=== PATIENT | male | born 1930 | race Caucasian/White ===

== ENCOUNTER → 2017-11-13 | Outpatient (CLI) | payer MEDICARE | END | disposition home or self-care (01) | LOC: CT 14:17 | DX: J18.1 Lobar pneumonia, unspecified organism (principal); I25.10 Atherosclerotic heart disease of native coronary artery without angina pectoris; M40.294 Other kyphosis, thoracic region | CPT/HCPCS: 71250 ==

== ENCOUNTER → 2018-02-08 | Outpatient (CLI) | payer MEDICARE ==
[2017-11-30 11:00] VITALS: BP 100/58
[~2018-02-08] MED LIST: AMOX1TAB10 PO; FLUT1DIS5 IH; FURO20TA3 PO; GUAI600T47 PO; IPRA3AMP29 NEB; LACT1CAP19 PO; MEMA10TA PO; POTA10TA12 PO; RIVA15TA PO
--- NOTE | 2018-02-08 15:19 | RAD ---
CT of the chest without contrast, 02/08/2018: HISTORY: Lung nodules Noncontrast scans were obtained and compared to a study from 11/13/2017. Comparison is made to a study from 11/13/2017. There is a 5 x 6 mm noncalcified nodule in the posterior lateral aspect of the right lower lobe as best seen on axial image 177 of series #3. It has shown no definite interval change in size. Much of the left upper lobe infiltrate has cleared since the previous study. There is a mild residual elongated parenchymal opacity along the anterosuperior aspect of the left hilum in the left upper lobe. This may represent scarring or residual atelectasis. There are mild residual tree-in-bud opacities. Emphysematous changes are present in the lungs. There are scattered linear opacities in both lungs compatible with scarring. A few scattered tree-in-bud type opacities in both lungs persist. There is a new elongated parenchymal opacity posterior medially in the left lower lobe as best seen on image 217 of series #3. This may represent atelectasis. There is mild bronchial wall thickening and evidence of debris in several bronchi in the left lower lobe. There is a trace amount of pleural thickening and possible pleural fluid in the posterior costophrenic angle on the left. There is moderate calcific plaquing of the thoracic aorta. Extensive coronary artery calcifications are present. Multiple small mediastinal lymph nodes are seen. Some of these have increased slightly in size, although they are not considered to be of pathologic size. 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 There are moderate multilevel degenerative changes. There is anterior fusion of several lower thoracic vertebral bodies. These findings appear unchanged. IMPRESSION: 1. Emphysema with pleural/parenchymal scarring. 2. Partial clearing of the left upper lobe pneumonitis since 11/13/2017. 3. New mild elongated left basilar pulmonary opacity suggesting atelectasis and/or pneumonitis. 4. Unchanged tiny right lower lobe pulmonary nodule. 5. Extensive coronary artery disease. Electronically signed by: Ahmet Head MD (02/08/2018 3:16 PM) [facility]
== END | disposition home or self-care (01) ==
LOC: CT 10:10
PROVIDERS: ATTEND Internal Medicine Pulmonary Disease
DX: J43.9 Emphysema, unspecified (principal); I25.10 Atherosclerotic heart disease of native coronary artery without angina pectoris; E03.9 Hypothyroidism, unspecified; I48.0 Paroxysmal atrial fibrillation; R91.1 Solitary pulmonary nodule; Z87.01 Personal history of pneumonia (recurrent); Z87.891 Personal history of nicotine dependence; Z68.26 Body mass index [BMI] 26.0-26.9, adult
CPT/HCPCS: 71250

== ENCOUNTER 2018-06-22 17:22 | Inpatient (IN) | payer MEDICARE ==
[2018-06-21 23:00] VITALS: BP 112/55
[~2018-06-22] VITALS: Ht 162.6 cm; Wt 75.8 kg
[~2018-06-22 17:22] MED LIST changes: +DILT120C85 PO; +FURO-69 PO; +POTA20TA82 PO
[2018-06-22] MEDS ORDERED: IV NORMAL SALINE 1000ML BAG 1,000 ML IV ONE (18:00)
[2018-06-22 18:10] LABS: BASO % 0 % (0-3); EOS % 0 % (0-3); HEMATOCRIT 43.9 % (39.0-53.0); LYMPH # 0.9 x10^3/uL (1.0-4.8); LYMPH % 6 % (24-48); MEAN CORPUSCULAR HEMOGLOBIN 31 pg (25-35); MEAN CORPUSCULAR HGB CONC 34 g/dL (31-37); MEAN CORPUSCULAR VOLUME 91 fL (79-100); MONO % 7 % (0-9); NEUT # 12.3 x10^3uL (1.8-7.7); NEUT % 87 % (31-73); PLATELET COUNT 221 x10^3/uL (140-400); RED BLOOD COUNT 4.83 x10^6/uL (4.30-5.70); RED CELL DISTRIBUTION WIDTH 14.3 % (11.5-14.5); WHITE BLOOD COUNT 14.2 x10^3/uL (4.0-11.0)
[2018-06-22 18:14] LABS: CREATININE 1.1 mg/dL (0.7-1.3); GFR 63.5; POTASSIUM 4.3 mmol/L (3.5-5.1)
[2018-06-22] MEDS ORDERED: ONDANSETRON PF 4 MG/2 ML VIAL. IV ONE (18:15)
[2018-06-22 18:19] LABS: ALBUMIN/GLOBULIN RATIO 0.8 (1.0-1.7); TOTAL BILIRUBIN 1.4 mg/dL (0.2-1.0)
[2018-06-22 18:29] LABS: BILIRUBIN,URINE SMALL (NEG); CLARITY,URINE CLEAR; COLOR,URINE AMBER; NITRITE,URINE NEGATIVE (NEG); PROTEIN,URINE NEGATIVE (NEG-TRACE)
[2018-06-22 18:41] LABS: RBC,URINE 0 /HPF (0-2)
[2018-06-22 18:42] LABS: BACTERIA,URINE 0 /HPF (0-FEW); HYALINE CASTS, URINE MODERATE /HPF; SQUAMOUS EPITHELIAL CELL,UR MOD /LPF
[2018-06-22] MEDS ORDERED: CONTRAST GIVEN. MC PRN (18:45)
[2018-06-22 18:58] LABS: % BANDS 6 % (0-9); % EOS 1 % (0-5); % LYMPHS 4 % (24-48); % MONOS 3 % (0-10); % SEGS 86 % (35-66); PLT ESTIMATE ADEQUATE (ADEQUATE)
[2018-06-22 18:59] LABS: TOXIC GRANULATION SLIGHT
[2018-06-22] MEDS ORDERED: IOHEXOL 300 MG/ML 100ML VIAL. IV ONE (19:00)
[2018-06-22] MEDS ORDERED: fentaNYL PF VIAL 100 MCG/2 ML VIAL IV ONE (19:15)
--- NOTE | 2018-06-22 19:16 | RAD ---
PQRS Compliance Statement: One or more of the following individualized dose reduction techniques were utilized for this examination: 1. Automated exposure control 2. Adjustment of the mA and/or kV according to patient size 3. Use of iterative reconstruction technique CT ABD PELV W/ IV CONTRST ONLY Clinical Indication: vomiting x 5 days, H/O LUNG CA - LEFT SQUAMOUS CELL, RECENT PNEUMONIA Comparison: CT abdomen with contrast June 12, 2018. Technique: Helical CT imaging of the abdomen and pelvis is performed after 75 cc of Omnipaque 300 IV contrast. Oral contrast not given. Findings: Left lower lobe pneumonia is improved from the prior study but is still present. Previously seen left pleural effusion has resolved. The right lung base is clear. There is coronary artery disease. Cardiac size normal. Cholecystectomy. Liver, spleen, pancreas, adrenal glands, and kidneys are normal. Ectatic abdominal aorta, moderate atherosclerotic calcification. There is sigmoid colon diverticulosis. The appendix is normal. There is no colon wall thickening. The stomach is moderately distended with fluid and air. The proximal small bowel is markedly dilated measuring up to 5.2 cm. There are multiple surgical clips along the ventral abdominal wall. Point of transition for the small bowel obstruction is not definitely identified, may be along the ventral abdominal wall and could relate to adhesions. There is trace free fluid in the pelvis. The urinary bladder is normal. Grade 1 anterolisthesis of L4 on L5. Degenerative spondylosis of the lumbar spine. There is compression fracture of T9 vertebral body that is unchanged. IMPRESSION: 1. There is high-grade mid small bowel obstruction. The stomach is moderately distended, proximal small bowel is markedly dilated. Point of transition is not definitely identified. 2. Left lower lobe pneumonia is still present but improved. Left pleural effusion has resolved. 3. Trace pelvic free fluid. 4. Sigmoid colon diverticulosis without diverticulitis. Electronically signed by: Abdullahi Lunsford MD (06/22/2018 7:12 PM) [facility]
--- NOTE | 2018-06-22 19:50 | PHYS DOC ---
Past Medical History Past Medical History: A-Fib, Cancer, COPD, Pneumonia, Other Additional Past Medical Histor: squamous cell left lung CA Past Surgical History: No Surgical History Additional Past Surgical Histo: denies Alcohol Use: None Drug Use: None Adult General Chief Complaint Chief Complaint: NAUSEA/VOMITING/DIARRHA HPI HPI Patient is a 88 year old male who presents with nausea times one week with vomiting. The patient was seen by his primary care provider a few days ago and placed on medication for his nausea. He states that he still cannot hold down any fluids. He states that he was recently admitted in the hospital for pneumonia and they discovered squamous cell carcinoma. He is going to have radiation therapy beginning soon. He has not taken any chemotherapy or other medications that would induce nausea. He is a somewhat poor historian on his bowel movements. He states that he did have some stool past but it seems like it was very watery. He denies fever. He does have some epigastric pain. Review of Systems Review of Systems Constitutional: Denies fever or chills [] Respiratory: Denies cough or shortness of breath [] Cardiovascular: No additional information not addressed in HPI [] GI: See history of present illness : Denies dysuria or hematuria [] Musculoskeletal: Denies back pain or joint pain [] Integument: Denies rash or skin lesions [] Neurologic: Denies headache, focal weakness or sensory changes [] Endocrine: Denies polyuria or polydipsia [] All other systems were reviewed and found to be within normal limits, except as documented in this note. Current Medications Current Medications Current Medications Medications (Trade) Dose Ordered Sig/Alessandra Start Time Stop Time Status Last Admin Dose Admin Fentanyl Citrate (Fentanyl 2ml Vial) 50 mcg 1X ONCE 06/22/18 19:15 06/22/18 19:16 DC 06/22/18 19:00 50 MCG Info (CONTRAST GIVEN -- Rx MONITORING) 1 each PRN DAILY PRN 06/22/18 18:45 06/24/18 18:44 Iohexol (Omnipaque 300 Mg/ml) 75 ml 1X ONCE 06/22/18 19:00 06/22/18 19:02 DC 06/22/18 18:51 75 ML Ondansetron HCl (Zofran) 4 mg 1X ONCE 06/22/18 18:15 06/22/18 18:16 DC 06/22/18 17:55 4 MG Sodium Chloride 1,000 ml @ 1,000 mls/hr 1X ONCE 06/22/18 18:00 06/22/18 19:02 DC 06/22/18 17:55 1,000 MLS/HR Allergies Allergies Allergies Coded Allergies Type Severity Reaction Last Updated Verified No Known Drug Allergies 06/14/18 No Physical Exam Physical Exam Constitutional: Well developed, well nourished, no acute distress, non-toxic appearance. [] HENT: Normocephalic, atraumatic, bilateral external ears normal, oropharynx dry , no oral exudates, nose normal. [] Eyes: PERRLA, EOMI, conjunctiva normal, no discharge. [] Neck: Normal range of motion, no tenderness, supple, no stridor. [] Cardiovascular:Heart rate irregular rhythm, no murmur [] Lungs & Thorax: Bilateral breath sounds clear to auscultation [] Abdomen: Bowel sounds decreased, firm with mild epigastric tenderness, no masses , no pulsatile masses. [] Skin: Warm, dry, no erythema, no rash. [] Neurologic: Alert and oriented X 3, normal motor function, normal sensory function, no focal deficits noted. [] Psychologic: Affect normal, judgement normal, mood normal. [] Current Patient Data Vital Signs Vital Signs Date Time Temp Pulse Resp B/P (MAP) Pulse Ox O2 Delivery O2 Flow Rate FiO2 06/22/18 19:00 18 95 Nasal Cannula 2.0 06/22/18 17:30 98.4 79 131/67 (88) 98.4 Lab Values Laboratory Tests Test 06/22/18 17:45 06/22/18 18:15 White Blood Count 14.2 x10^3/uL (4.0-11.0) H Red Blood Count 4.83 x10^6/uL (4.30-5.70) Hemoglobin 15.0 g/dL (13.0-17.5) Hematocrit 43.9 % (39.0-53.0) Mean Corpuscular Volume 91 fL (79-100) Mean Corpuscular Hemoglobin 31 pg (25-35) Mean Corpuscular Hemoglobin Concent 34 g/dL (31-37) Red Cell Distribution Width 14.3 % (11.5-14.5) Platelet Count 221 x10^3/uL (140-400) Neutrophils (%) (Auto) 87 % (31-73) H Lymphocytes (%) (Auto) 6 % (24-48) L Monocytes (%) (Auto) 7 % (0-9) Eosinophils (%) (Auto) 0 % (0-3) Basophils (%) (Auto) 0 % (0-3) Neutrophils # (Auto) 12.3 x10^3uL (1.8-7.7) H Lymphocytes # (Auto) 0.9 x10^3/uL (1.0-4.8) L Monocytes # (Auto) 1.0 x10^3/uL (0.0-1.1) Eosinophils # (Auto) 0.0 x10^3/uL (0.0-0.7) Basophils # (Auto) 0.0 x10^3/uL (0.0-0.2) Segmented Neutrophils % 86 % (35-66) H Band Neutrophils % 6 % (0-9) Lymphocytes % 4 % (24-48) L Monocytes % 3 % (0-10) Eosinophils % 1 % (0-5) Toxic Granulation Slight Platelet Estimate Adequate (ADEQUATE) Sodium Level 135 mmol/L (136-145) L Potassium Level 4.3 mmol/L (3.5-5.1) Chloride Level 95 mmol/L (98-107) L Carbon Dioxide Level 37 mmol/L (21-32) H Anion Gap 3 (6-14) L Blood Urea Nitrogen 26 mg/dL (8-26) Creatinine 1.1 mg/dL (0.7-1.3) Estimated GFR (Cockcroft-Gault) 63.5 BUN/Creatinine Ratio 24 (6-20) H Glucose Level 115 mg/dL (70-99) H Lactic Acid Level 1.8 mmol/L (0.4-2.0) Calcium Level 9.0 mg/dL (8.5-10.1) Total Bilirubin 1.4 mg/dL (0.2-1.0) H Aspartate Amino Transferase (AST) 44 U/L (15-37) H Alanine Aminotransferase (ALT) 62 U/L (16-63) Alkaline Phosphatase 158 U/L (46-116) H PY-Pha-U-Type Natriuretic Peptide 463 pg/mL (0-449) H Total Protein 7.0 g/dL (6.4-8.2) Albumin 3.0 g/dL (3.4-5.0) L Albumin/Globulin Ratio 0.8 (1.0-1.7) L Amylase Level 35 U/L (25-115) Lipase 38 U/L (73-393) L Urine Collection Type Unknown Urine Color Precious Urine Clarity Clear Urine pH 5.0 Urine Specific [place] >=1.030 Urine Protein Negative mg/dL (NEG-TRACE) Urine Glucose (UA) Negative mg/dL (NEG) Urine Ketones (Stick) Trace mg/dL (NEG) Urine Blood Negative (NEG) Urine Nitrite Negative (NEG) Urine Bilirubin Small (NEG) Urine Urobilinogen Dipstick 1.0 mg/dL (0.2 mg/dL) Urine Leukocyte Esterase Small (NEG) Urine RBC 0 /HPF (0-2) Urine WBC 5-10 /HPF (0-4) Urine Squamous Epithelial Cells Mod /LPF Urine Bacteria 0 /HPF (0-FEW) Urine Hyaline Casts Moderate /HPF Urine Mucus Mod /LPF Laboratory Tests 06/22/18 17:45 Laboratory Tests 06/22/18 17:45 EKG EKG [] Radiology/Procedures Radiology/Procedures []PATIENT: BERTHA CROWE SACCOUNT: [id number]#: [id number] : 1930 LOCATION: ER AGE: 88 SEX: M EXAM STATUS: REG ER ORD. PHYSICIAN: SOTO WILLIAMSON APRN REASON: vomiting x 5 days, OMNI 300, 75ml PROCEDURE: CT ABD PELV W/ IV CONTRST ONLY PQRS Compliance Statement: One or more of the following individualized dose reduction techniques were utilized for this examination: 1. Automated exposure control 2. Adjustment of the mA and/or kV according to patient size 3. Use of iterative reconstruction technique CT ABD PELV W/ IV CONTRST ONLY Clinical Indication: vomiting x 5 days, H/O LUNG CA - LEFT SQUAMOUS CELL, RECENT PNEUMONIA Comparison: CT abdomen with contrast June 12, 2018. Technique: Helical CT imaging of the abdomen and pelvis is performed after 75 cc of Omnipaque 300 IV contrast. Oral contrast not given. Findings: Left lower lobe pneumonia is improved from the prior study but is still present. Previously seen left pleural effusion has resolved. The right lung base is clear. There is coronary artery disease. Cardiac size normal. Cholecystectomy. Liver, spleen, pancreas, adrenal glands, and kidneys are normal. Ectatic abdominal aorta, moderate atherosclerotic calcification. There is sigmoid colon diverticulosis. The appendix is normal. There is no colon wall thickening. The stomach is moderately distended with fluid and air. The proximal small bowel is markedly dilated measuring up to 5.2 cm. There are multiple surgical clips along the ventral abdominal wall. Point of transition for the small bowel obstruction is not definitely identified, may be along the ventral abdominal wall and could relate to adhesions. There is trace free fluid in the pelvis. The urinary bladder is normal. Grade 1 anterolisthesis of L4 on L5. Degenerative spondylosis of the lumbar spine. There is compression fracture of T9 vertebral body that is unchanged. IMPRESSION: 1. There is high-grade mid small bowel obstruction. The stomach is moderately distended, proximal small bowel is markedly dilated. Point of transition is not definitely identified. 2. Left lower lobe pneumonia is still present but improved. Left pleural effusion has resolved. 3. Trace pelvic free fluid. 4. Sigmoid colon diverticulosis without diverticulitis. Electronically signed by: Abdullahi Lunsford MD (06/22/2018 7:12 PM) [facility] DICTATED and SIGNED BY: ABDULLAHI LUNSFORD MD DATE: 06/22/181903 Course & Med Decision Making Course & Med Decision Making Pertinent Labs and Imaging studies reviewed. (See chart for details) The patient received a liter of fluids, Zofran and fentanyl in the emergency department. He is still actively vomiting. The patient's urine was positive for a UTI. The patient is also positive for a bowel obstruction. An NG tube has been placed in the emergency department. The patient is being admitted to Dr. Lozano's service and a consult has been placed for surgery. Dragon Disclaimer Dragon Disclaimer This electronic medical record was generated, in whole or in part, using a voice recognition dictation system. Departure Departure Impression: Primary Impression: Bowel obstruction Additional Impressions: Urinary tract infection Dehydration Disposition: ADMITTED INPATIENT Admitting Physician: Yamilex Lozano Condition: GOOD Referrals: YAMILEX LOZANO MD (PCP) Problem Qualifiers SOTO WILLIAMSON APRN Jun 22, 2018 19:50
[2018-06-22] MEDS ORDERED: fentaNYL PF VIAL 100 MCG/2 ML VIAL IV PRN (20:00)
[2018-06-22] MEDS ORDERED: ONDANSETRON PF 4 MG/2 ML VIAL. IV PRN (20:00)
--- NOTE | 2018-06-22 20:21 | RAD ---
CHEST AP ONLY Clinical Indication: nausea and vomiting, cough, recent pneumonia Comparison: Two-view chest June 07, 2018. Findings: Atherosclerotic thoracic aorta. The cardiomediastinal silhouette is normal. Left lower lobe pneumonia is improved. The right lung is clear. There is no pneumothorax. No pleural effusion is appreciated. No acute bone abnormality. IMPRESSION: Left lower lobe pneumonia is partially resolved. Electronically signed by: Abdullahi Lunsford MD (06/22/2018 8:16 PM) [facility]
--- NOTE | 2018-06-22 20:23 | RAD ---
KUB Clinical Indication: confirm NG placement Comparison: CT abdomen and pelvis with contrast, earlier same day. Findings: There is enteric tube, tip in the proximal stomach. Air distends the stomach. Markedly dilated small bowel in the central abdomen, maximum diameter 6.1 cm. Bowel gas pattern compatible with small bowel obstruction. Ventral abdominal wall surgical clips project over the central abdomen. There is IV contrast and urinary bladder. Degenerative spondylosis of the lumbar spine. IMPRESSION: 1. Enteric tube tip is in the proximal stomach. 2. Small bowel obstruction. Electronically signed by: Abdullahi Lunsford MD (06/22/2018 8:18 PM) [facility]
[2018-06-22] MEDS ORDERED: cefTRIAXone IV Push 1 GM VIAL. IVP ONE (20:30)
[2018-06-22] MEDS: IV NORMAL SALINE 1000ML BAG 1,000 ML IV SCH (21:07)
[2018-06-22] MEDS: IPRATRPIUM/ALBUTEROL 0.5/2.5MG 3 ML NEBU. NEB SCH (21:10)
--- NOTE | 2018-06-22 22:40 | NUR ---
Left message to Dr. Lozano re: throat pain, s/p NGT placement.
[2018-06-22 23:20] VITALS: BP 109/44
[2018-06-23] MEDS ORDERED: TRAM50TA PO (01:58)
[2018-06-23 03:00] VITALS: BP 127/56
[2018-06-23] MEDS: IV NORMAL SALINE 1000ML BAG 1,000 ML IV SCH ×2 (04:14→12:22)
[2018-06-23 07:00] VITALS: BP 107/53
[2018-06-23 07:04] LABS: BASO % 0 % (0-3); EOS % 0 % (0-3); HEMATOCRIT 38.8 % (39.0-53.0); LYMPH # 0.6 x10^3/uL (1.0-4.8); LYMPH % 7 % (24-48); MEAN CORPUSCULAR HEMOGLOBIN 31 pg (25-35); MEAN CORPUSCULAR HGB CONC 33 g/dL (31-37); MEAN CORPUSCULAR VOLUME 92 fL (79-100); MONO # 0.9 x10^3/uL (0.0-1.1); MONO % 10 % (0-9); NEUT # 7.5 x10^3uL (1.8-7.7); NEUT % 83 % (31-73); PLATELET COUNT 159 x10^3/uL (140-400); RED BLOOD COUNT 4.23 x10^6/uL (4.30-5.70); RED CELL DISTRIBUTION WIDTH 14.7 % (11.5-14.5)
[2018-06-23 07:26] LABS: CALCIUM 8.1 mg/dL (8.5-10.1); CREATININE 0.8 mg/dL (0.7-1.3); GFR 91.7
--- NOTE | 2018-06-23 07:42 | RAD ---
KUB Clinical Indication: NGT placement 532 Comparison: KUB, prior day. Findings: There is enteric tube, tip is just into the stomach. The side-port is in the distal esophagus. The tube should be advanced at least 5 cm. There is left lower lobe infiltrate. Gaseous distention of the stomach is no longer seen. Dilated small bowel is improved. There is scattered air in the colon. There is still some IV contrast in the urinary bladder. Ventral abdominal wall metallic fasteners redemonstrated. IMPRESSION: 1. Enteric tube tip is just into the stomach and should be advanced. 2. Small bowel obstruction is improving. Electronically signed by: Abdullahi Lunsford MD (06/23/2018 7:37 AM) [facility]
[2018-06-23] MEDS: IPRATRPIUM/ALBUTEROL 0.5/2.5MG 3 ML NEBU. NEB SCH ×4 (08:45→19:19)
[2018-06-23 11:03] VITALS: BP 104/42
--- NOTE | 2018-06-23 13:42 | PDOC2 ---
CONSULT Date of Consult Date of Consult DATE: 06/23/18 TIME: 13:38 History of Present Illness Reason for Visit: Pt is 88 year old male admitted due to SBO. He is a poor historian and unable to provide accurate details, suspect some element of dementia. ER note indicates patient reported with vomiting. ER evaluation including a CT scan raised concern for SBO; subsequent KUBs have shown some improvement. Past Medical History Cardiovascular: AFIB Pulmonary: COPD, Pneumonia, Other Musculoskeletal: Osteoarthritis Past Surgical History Past Surgical History: No pertinent history Social History ALCOHOL: none Drugs: None Lives: with Family Current Problem List Problem List Problems Medical Problems: (1) Bowel obstruction Status: Acute (2) Dehydration Status: Acute (3) Urinary tract infection Status: Acute Current Medications Current Medications Current Medications Sodium Chloride 1,000 ml @ 1,000 mls/hr 1X ONCE IV Last administered on at 17:55; Start 06/22/18 at 18:00; Stop 06/22/18 at 19:02; Status DC Ondansetron HCl (Zofran) 4 mg 1X ONCE IV Last administered on 06/22/18at 17:55 ; Start 06/22/18 at 18:15; Stop 06/22/18 at 18:16; Status DC Iohexol (Omnipaque 300 Mg/ml) 75 ml 1X ONCE IV Last administered on 06/22/18at 18:51; Start 06/22/18 at 19:00; Stop 06/22/18 at 19:02; Status DC Info (CONTRAST GIVEN -- Rx MONITORING) 1 each PRN DAILY PRN MC SEE COMMENTS; Start 06/22/18 at 18:45; Stop 06/24/18 at 18:44 Fentanyl Citrate (Fentanyl 2ml Vial) 50 mcg 1X ONCE IV Last administered on 05/29at 19:00; Start 06/22/18 at 19:15; Stop 06/22/18 at 19:16; Status DC Ondansetron HCl (Zofran) 4 mg PRN Q8HRS PRN IV NAUSEA/VOMITING; Start 06/22/18 at 20:00; Stop 06/23/18 at 19:59 Fentanyl Citrate (Fentanyl 2ml Vial) 50 mcg PRN Q1HR PRN IV PAIN Last administered on 06/22/18at 23:14; Start 06/22/18 at 20:00; Stop 06/23/18 at 19:59 Sodium Chloride 1,000 ml @ 125 mls/hr Q8H IV Last administered on 06/23/18at 12 :22; Start 06/22/18 at 19:58; Stop 06/23/18 at 19:57 Albuterol/ Ipratropium (Duoneb) 3 ml RTQID NEB Last administered on 06/23/18at 12:04; Start 06/22/18 at 20:00; Stop 06/23/18 at 19:59 Ceftriaxone Sodium (Rocephin) 1 gm 1X ONCE IVP Last administered on 06/22/18at 20:20; Start 06/22/18 at 20:30; Stop 06/22/18 at 20:31; Status DC Active Scripts Active Reported Tramadol Hcl 50 Mg Tablet 50 Mg PO Q6HRS PRN Potassium Chloride 20 Meq Tablet.er 20 Meq PO DAILY Diltiazem 24HR Cd (Diltiazem Hcl) 120 Mg Cap.er.24h 1 Cap PO DAILY Lasix (Furosemide) 20 Mg Tablet 20 Mg PO BID Duoneb 0.5-3(2.5) Mg/3 Ml (Albuterol/Ipratropium) 3 Ml Ampul.neb 3 Ml NEB PRN Q6HRS PRN Advair 500-50 Diskus (Fluticasone/Salmeterol) 1 Each Disk.w.dev 1 Puff IH BID Allergies Allergies: Coded Allergies: No Known Drug Allergies (Unverified , 06/14/18) ROS Review of System Unable to provide, poor historian Physical Exam General: Alert, No acute distress HEENT: Atraumatic Abdomen: Soft, No tenderness Extremities: No clubbing, No cyanosis Skin: No rashes Neuro: Normal speech MUSCULOSKELETAL: No deformity Vitals VITALS Vital Signs Date Time Temp Pulse Resp B/P (MAP) Pulse Ox O2 Delivery O2 Flow Rate FiO2 06/23/18 12:05 Nasal Cannula 2.0 06/23/18 11:03 97.8 124 18 104/42 (62) 92 97.8 Labs Labs Laboratory Tests Test 06/22/18 17:45 06/22/18 18:15 06/23/18 06:40 White Blood Count 14.2 x10^3/uL (4.0-11.0) 9.0 x10^3/uL (4.0-11.0) Red Blood Count 4.83 x10^6/uL (4.30-5.70) 4.23 x10^6/uL (4.30-5.70) Hemoglobin 15.0 g/dL (13.0-17.5) 13.0 g/dL (13.0-17.5) Hematocrit 43.9 % (39.0-53.0) 38.8 % (39.0-53.0) Mean Corpuscular Volume 91 fL (79-100) 92 fL (79-100) Mean Corpuscular Hemoglobin 31 pg (25-35) 31 pg (25-35) Mean Corpuscular Hemoglobin Concent 34 g/dL (31-37) 33 g/dL (31-37) Red Cell Distribution Width 14.3 % (11.5-14.5) 14.7 % (11.5-14.5) Platelet Count 221 x10^3/uL (140-400) 159 x10^3/uL (140-400) Neutrophils (%) (Auto) 87 % (31-73) 83 % (31-73) Lymphocytes (%) (Auto) 6 % (24-48) 7 % (24-48) Monocytes (%) (Auto) 7 % (0-9) 10 % (0-9) Eosinophils (%) (Auto) 0 % (0-3) 0 % (0-3) Basophils (%) (Auto) 0 % (0-3) 0 % (0-3) Neutrophils # (Auto) 12.3 x10^3uL (1.8-7.7) 7.5 x10^3uL (1.8-7.7) Lymphocytes # (Auto) 0.9 x10^3/uL (1.0-4.8) 0.6 x10^3/uL (1.0-4.8) Monocytes # (Auto) 1.0 x10^3/uL (0.0-1.1) 0.9 x10^3/uL (0.0-1.1) Eosinophils # (Auto) 0.0 x10^3/uL (0.0-0.7) 0.0 x10^3/uL (0.0-0.7) Basophils # (Auto) 0.0 x10^3/uL (0.0-0.2) 0.0 x10^3/uL (0.0-0.2) Segmented Neutrophils % 86 % (35-66) Band Neutrophils % 6 % (0-9) Lymphocytes % 4 % (24-48) Monocytes % 3 % (0-10) Eosinophils % 1 % (0-5) Toxic Granulation Slight Platelet Estimate Adequate (ADEQUATE) Sodium Level 135 mmol/L (136-145) 139 mmol/L (136-145) Potassium Level 4.3 mmol/L (3.5-5.1) 4.0 mmol/L (3.5-5.1) Chloride Level 95 mmol/L (98-107) 102 mmol/L (98-107) Carbon Dioxide Level 37 mmol/L (21-32) 31 mmol/L (21-32) Anion Gap 3 (6-14) 6 (6-14) Blood Urea Nitrogen 26 mg/dL (8-26) 21 mg/dL (8-26) Creatinine 1.1 mg/dL (0.7-1.3) 0.8 mg/dL (0.7-1.3) Estimated GFR (Cockcroft-Gault) 63.5 91.7 BUN/Creatinine Ratio 24 (6-20) Glucose Level 115 mg/dL (70-99) 85 mg/dL (70-99) Lactic Acid Level 1.8 mmol/L (0.4-2.0) Calcium Level 9.0 mg/dL (8.5-10.1) 8.1 mg/dL (8.5-10.1) Total Bilirubin 1.4 mg/dL (0.2-1.0) Aspartate Amino Transf (AST/SGOT) 44 U/L (15-37) Alanine Aminotransferase (ALT/SGPT) 62 U/L (16-63) Alkaline Phosphatase 158 U/L (46-116) SM-Dxi-Z-Type Natriuretic Peptide 463 pg/mL (0-449) Total Protein 7.0 g/dL (6.4-8.2) Albumin 3.0 g/dL (3.4-5.0) Albumin/Globulin Ratio 0.8 (1.0-1.7) Amylase Level 35 U/L (25-115) Lipase 38 U/L (73-393) Urine Collection Type Unknown Urine Color Precious Urine Clarity Clear Urine pH 5.0 Urine Specific [place] >=1.030 Urine Protein Negative mg/dL (NEG-TRACE) Urine Glucose (UA) Negative mg/dL (NEG) Urine Ketones (Stick) Trace mg/dL (NEG) Urine Blood Negative (NEG) Urine Nitrite Negative (NEG) Urine Bilirubin Small (NEG) Urine Urobilinogen Dipstick 1.0 mg/dL (0.2 mg/dL) Urine Leukocyte Esterase Small (NEG) Urine RBC 0 /HPF (0-2) Urine WBC 5-10 /HPF (0-4) Urine Squamous Epithelial Cells Mod /LPF Urine Bacteria 0 /HPF (0-FEW) Urine Hyaline Casts Moderate /HPF Urine Mucus Mod /LPF Laboratory Tests Test 06/22/18 17:45 06/22/18 18:15 06/23/18 06:40 White Blood Count 14.2 x10^3/uL (4.0-11.0) 9.0 x10^3/uL (4.0-11.0) Red Blood Count 4.83 x10^6/uL (4.30-5.70) 4.23 x10^6/uL (4.30-5.70) Hemoglobin 15.0 g/dL (13.0-17.5) 13.0 g/dL (13.0-17.5) Hematocrit 43.9 % (39.0-53.0) 38.8 % (39.0-53.0) Mean Corpuscular Volume 91 fL (79-100) 92 fL (79-100) Mean Corpuscular Hemoglobin 31 pg (25-35) 31 pg (25-35) Mean Corpuscular Hemoglobin Concent 34 g/dL (31-37) 33 g/dL (31-37) Red Cell Distribution Width 14.3 % (11.5-14.5) 14.7 % (11.5-14.5) Platelet Count 221 x10^3/uL (140-400) 159 x10^3/uL (140-400) Neutrophils (%) (Auto) 87 % (31-73) 83 % (31-73) Lymphocytes (%) (Auto) 6 % (24-48) 7 % (24-48) Monocytes (%) (Auto) 7 % (0-9) 10 % (0-9) Eosinophils (%) (Auto) 0 % (0-3) 0 % (0-3) Basophils (%) (Auto) 0 % (0-3) 0 % (0-3) Neutrophils # (Auto) 12.3 x10^3uL (1.8-7.7) 7.5 x10^3uL (1.8-7.7) Lymphocytes # (Auto) 0.9 x10^3/uL (1.0-4.8) 0.6 x10^3/uL (1.0-4.8) Monocytes # (Auto) 1.0 x10^3/uL (0.0-1.1) 0.9 x10^3/uL (0.0-1.1) Eosinophils # (Auto) 0.0 x10^3/uL (0.0-0.7) 0.0 x10^3/uL (0.0-0.7) Basophils # (Auto) 0.0 x10^3/uL (0.0-0.2) 0.0 x10^3/uL (0.0-0.2) Segmented Neutrophils % 86 % (35-66) Band Neutrophils % 6 % (0-9) Lymphocytes % 4 % (24-48) Monocytes % 3 % (0-10) Eosinophils % 1 % (0-5) Toxic Granulation Slight Platelet Estimate Adequate (ADEQUATE) Sodium Level 135 mmol/L (136-145) 139 mmol/L (136-145) Potassium Level 4.3 mmol/L (3.5-5.1) 4.0 mmol/L (3.5-5.1) Chloride Level 95 mmol/L (98-107) 102 mmol/L (98-107) Carbon Dioxide Level 37 mmol/L (21-32) 31 mmol/L (21-32) Anion Gap 3 (6-14) 6 (6-14) Blood Urea Nitrogen 26 mg/dL (8-26) 21 mg/dL (8-26) Creatinine 1.1 mg/dL (0.7-1.3) 0.8 mg/dL (0.7-1.3) Estimated GFR (Cockcroft-Gault) 63.5 91.7 BUN/Creatinine Ratio 24 (6-20) Glucose Level 115 mg/dL (70-99) 85 mg/dL (70-99) Lactic Acid Level 1.8 mmol/L (0.4-2.0) Calcium Level 9.0 mg/dL (8.5-10.1) 8.1 mg/dL (8.5-10.1) Total Bilirubin 1.4 mg/dL (0.2-1.0) Aspartate Amino Transf (AST/SGOT) 44 U/L (15-37) Alanine Aminotransferase (ALT/SGPT) 62 U/L (16-63) Alkaline Phosphatase 158 U/L (46-116) AH-Kll-N-Type Natriuretic Peptide 463 pg/mL (0-449) Total Protein 7.0 g/dL (6.4-8.2) Albumin 3.0 g/dL (3.4-5.0) Albumin/Globulin Ratio 0.8 (1.0-1.7) Amylase Level 35 U/L (25-115) Lipase 38 U/L (73-393) Urine Collection Type Unknown Urine Color Precious Urine Clarity Clear Urine pH 5.0 Urine Specific [place] >=1.030 Urine Protein Negative mg/dL (NEG-TRACE) Urine Glucose (UA) Negative mg/dL (NEG) Urine Ketones (Stick) Trace mg/dL (NEG) Urine Blood Negative (NEG) Urine Nitrite Negative (NEG) Urine Bilirubin Small (NEG) Urine Urobilinogen Dipstick 1.0 mg/dL (0.2 mg/dL) Urine Leukocyte Esterase Small (NEG) Urine RBC 0 /HPF (0-2) Urine WBC 5-10 /HPF (0-4) Urine Squamous Epithelial Cells Mod /LPF Urine Bacteria 0 /HPF (0-FEW) Urine Hyaline Casts Moderate /HPF Urine Mucus Mod /LPF Assessment/Plan Assessment/Plan Vomiting, history lung CA; SBO on CT scan, some clinical improvement. Plan for NG trial, FU films, serial exams. SAWYER DAY MD Jun 23, 2018 13:42
[2018-06-23 15:00] VITALS: BP 117/82
[2018-06-23 19:00] VITALS: BP 105/48
[2018-06-23] MEDS: IV DEXTROSE 5%-LACT RINGERS 1,000 ML IV SCH (20:46)
[2018-06-23 23:00] VITALS: BP 107/54
[2018-06-24 03:00] VITALS: BP 111/51
--- NOTE | 2018-06-24 03:40 | NUR ---
NGT long term out. Reinserted 16Fr to rt nare without difficulty. Pt tolerated procedure. Able to aspirate gastric contents. KUB per protocol.
--- NOTE | 2018-06-24 05:18 | RAD ---
INDICATION: NGT PLACEMENT, PATIENT HAS PULLED SEVERAL OUT. COMPARISON: One day prior IMPRESSION: Abdomen: 2 views obtained. Air scattered throughout the large and small bowel with some dilated loops of small bowel seen measuring up to approximately 4 cm with air also seen within the colon. Could be secondary to causes such as obstruction or ileus. Enteric tube with tip likely just distal to the gastroesophageal junction with sidehole at distal esophagus. Degenerative changes of spine. Electronically signed by: Con Jeronimo MD (06/24/2018 5:13 AM) [facility]
[2018-06-24] MEDS: IV DEXTROSE 5%-LACT RINGERS 1,000 ML IV SCH ×2 (05:48→18:14)
[2018-06-24] MEDS ORDERED: fentaNYL PF VIAL 100 MCG/2 ML VIAL IV PRN (06:15)
[2018-06-24] MEDS ORDERED: PHENOL ORAL SPRAY 177ML BOTTLE. PO PRN (06:15)
[2018-06-24] MEDS ORDERED: ONDANSETRON PF 4 MG/2 ML VIAL. IV PRN (06:15)
[2018-06-24 07:00] VITALS: BP 130/65
[2018-06-24] MEDS: IPRATRPIUM/ALBUTEROL 0.5/2.5MG 3 ML NEBU. NEB SCH ×4 (08:16→20:20)
--- NOTE | 2018-06-24 08:33 | PDOC ---
Provider Note Provider Note [id number] DINO JON MD Jun 24, 2018 08:33
--- NOTE | 2018-06-24 08:51 | PDOC ---
JOVAN DUMONT MEAT AND POULTRY INSPECTOR 06/24/18 0851: SURGICAL PROGRESS NOTE Subjective had a good stool this AM nausea at times no abdominal pain Vital Signs Vital Signs Date Time Temp Pulse Resp B/P (MAP) Pulse Ox O2 Delivery O2 Flow Rate FiO2 06/24/18 08:18 94 Nasal Cannula 2.0 06/24/18 07:00 97.9 73 18 130/65 (86) 97.9 I&O Intake and Output 06/24/18 07:01 Intake Total 2400 ml Output Total 400 ml Balance 2000 ml Intake Oral 400 ml IV Total 2000 ml Output Gastric Drainage Total 400 ml # Voids 2 # Bowel Movements 1 General: Alert, Oriented X3, Cooperative, No acute distress Abdomen: Soft, No tenderness Labs Laboratory Tests Test 06/22/18 17:45 06/22/18 18:15 06/23/18 06:00 06/23/18 06:40 White Blood Count 14.2 x10^3/uL (4.0-11.0) 9.0 x10^3/uL (4.0-11.0) Red Blood Count 4.83 x10^6/uL (4.30-5.70) 4.23 x10^6/uL (4.30-5.70) Hemoglobin 15.0 g/dL (13.0-17.5) 13.0 g/dL (13.0-17.5) Hematocrit 43.9 % (39.0-53.0) 38.8 % (39.0-53.0) Mean Corpuscular Volume 91 fL (79-100) 92 fL (79-100) Mean Corpuscular Hemoglobin 31 pg (25-35) 31 pg (25-35) Mean Corpuscular Hemoglobin Concent 34 g/dL (31-37) 33 g/dL (31-37) Red Cell Distribution Width 14.3 % (11.5-14.5) 14.7 % (11.5-14.5) Platelet Count 221 x10^3/uL (140-400) 159 x10^3/uL (140-400) Neutrophils (%) (Auto) 87 % (31-73) 83 % (31-73) Lymphocytes (%) (Auto) 6 % (24-48) 7 % (24-48) Monocytes (%) (Auto) 7 % (0-9) 10 % (0-9) Eosinophils (%) (Auto) 0 % (0-3) 0 % (0-3) Basophils (%) (Auto) 0 % (0-3) 0 % (0-3) Neutrophils # (Auto) 12.3 x10^3uL (1.8-7.7) 7.5 x10^3uL (1.8-7.7) Lymphocytes # (Auto) 0.9 x10^3/uL (1.0-4.8) 0.6 x10^3/uL (1.0-4.8) Monocytes # (Auto) 1.0 x10^3/uL (0.0-1.1) 0.9 x10^3/uL (0.0-1.1) Eosinophils # (Auto) 0.0 x10^3/uL (0.0-0.7) 0.0 x10^3/uL (0.0-0.7) Basophils # (Auto) 0.0 x10^3/uL (0.0-0.2) 0.0 x10^3/uL (0.0-0.2) Segmented Neutrophils % 86 % (35-66) Band Neutrophils % 6 % (0-9) Lymphocytes % 4 % (24-48) Monocytes % 3 % (0-10) Eosinophils % 1 % (0-5) Toxic Granulation Slight Platelet Estimate Adequate (ADEQUATE) Sodium Level 135 mmol/L (136-145) 139 mmol/L (136-145) Potassium Level 4.3 mmol/L (3.5-5.1) 4.0 mmol/L (3.5-5.1) Chloride Level 95 mmol/L (98-107) 102 mmol/L (98-107) Carbon Dioxide Level 37 mmol/L (21-32) 31 mmol/L (21-32) Anion Gap 3 (6-14) 6 (6-14) Blood Urea Nitrogen 26 mg/dL (8-26) 21 mg/dL (8-26) Creatinine 1.1 mg/dL (0.7-1.3) 0.8 mg/dL (0.7-1.3) Estimated GFR (Cockcroft-Gault) 63.5 91.7 BUN/Creatinine Ratio 24 (6-20) Glucose Level 115 mg/dL (70-99) 85 mg/dL (70-99) Lactic Acid Level 1.8 mmol/L (0.4-2.0) Calcium Level 9.0 mg/dL (8.5-10.1) 8.1 mg/dL (8.5-10.1) Total Bilirubin 1.4 mg/dL (0.2-1.0) Aspartate Amino Transf (AST/SGOT) 44 U/L (15-37) Alanine Aminotransferase (ALT/SGPT) 62 U/L (16-63) Alkaline Phosphatase 158 U/L (46-116) GN-Dsw-O-Type Natriuretic Peptide 463 pg/mL (0-449) Total Protein 7.0 g/dL (6.4-8.2) Albumin 3.0 g/dL (3.4-5.0) Albumin/Globulin Ratio 0.8 (1.0-1.7) Amylase Level 35 U/L (25-115) Lipase 38 U/L (73-393) Urine Collection Type Unknown Urine Color Precious Urine Clarity Clear Urine pH 5.0 Urine Specific [place] >=1.030 Urine Protein Negative mg/dL (NEG-TRACE) Urine Glucose (UA) Negative mg/dL (NEG) Urine Ketones (Stick) Trace mg/dL (NEG) Urine Blood Negative (NEG) Urine Nitrite Negative (NEG) Urine Bilirubin Small (NEG) Urine Urobilinogen Dipstick 1.0 mg/dL (0.2 mg/dL) Urine Leukocyte Esterase Small (NEG) Urine RBC 0 /HPF (0-2) Urine WBC 5-10 /HPF (0-4) Urine Squamous Epithelial Cells Mod /LPF Urine Bacteria 0 /HPF (0-FEW) Urine Hyaline Casts Moderate /HPF Urine Mucus Mod /LPF Clostridium difficile Toxin B Gene Negative (Negative) Problem List Problems Medical Problems: (1) Bowel obstruction Status: Acute (2) Dehydration Status: Acute (3) Urinary tract infection Status: Acute Assessment/Plan xrays pending, clinical improvement will clamp NG SAWYER DAY MD 06/24/18 1022: SURGICAL PROGRESS NOTE Assessment/Plan Agree with above JOVAN DUMONT APRN Jun 24, 2018 08:51 SAWYER DAY MD Jun 24, 2018 10:22
--- NOTE | 2018-06-24 09:20 | NUR ---
NG in place w/greenish output. Per surgical note, NG clamped @ 0915. Per discussion w/Dr. Ruby, pt to go for CT pre-treatment@[id number], with treatment to start potentially Sunday 06/25 or Monday 06/26.
--- NOTE | 2018-06-24 09:54 | PN ---
DATE: The patient is sleeping. Vital signs are stable and labs have no change. Repeat KUB today was about the same as before with the CT showing evidence of [id number] grade small-bowel obstruction somewhere in the mid small bowel. He was recently diagnosed to have lung cancer, type unknown as path report is not available at this time. Conservative care, NG suction, IV fluids, n.p.o. continue. DINO JON MD DR: DAMI/nts JOB#: [id number] / [id number]
--- NOTE | 2018-06-24 10:01 | PDOC ---
Provider Note Provider Note 88 yo man just admitted with SBO. Now improved with no nausea or abd paion. Passed a stool since admission yesterday. 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 PE Alert in NAD C/O discomfort of NG tube but no other complaints. Abd soft no distention. Impression: SBO, appears resolved. 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 Plan on simulation as previously planned today. with radiation alone planned to begin 06/26/2018. EVELYN ZURITA MD Jun 24, 2018 10:01
[2018-06-24 10:51] VITALS: BP 122/62
--- NOTE | 2018-06-24 13:22 | CONS ---
DATE OF CONSULTATION: 06/24/2018 PULMONARY CONSULTATION ATTENDING PHYSICIAN: Lazara Lozano MD. REASON FOR CONSULTATION: Lung cancer. HISTORY OF PRESENT ILLNESS: The patient is an 88-year-old male who has history of chronic obstructive airway disease and has been followed by Dr. Del Angel who had done a bronchoscopy, which revealed endobronchial lesion. The patient's biopsies confirmed squamous cell cancer. He has been referred to Dr. Ruby and has not had radiation treatment started yet. He was brought into the hospital after he had some bowel distention. He said he also has not had a BM. The patient was nauseous. No vomiting. He has some cough with some mild shortness of breath. He is unable to cough up much secretions. No headaches, no vomiting or diarrhea. No lower extremity edema. He had imaging studies performed, which was reviewed by me. His CT abdomen performed on 06/22/2018 shows high grade small-bowel obstruction, but also has volume loss with mass-like consolidation in the left lower lobe, which was improving. The left pleural effusion has resolved. I have been asked to see him for further evaluation. He is currently requiring oxygen. PAST MEDICAL HISTORY: Significant for, 1. History of recently diagnosed squamous cell cancer, status post bronchoscopy with endobronchial lesion involving the left main stem bronchus and distal obstructive pneumonitis. 2. Underlying suspected COPD. PAST SURGICAL HISTORY: Recent bronchoscopy. ALLERGIES: None. CURRENT MEDICATIONS: Reviewed as listed in the MRAD including DuoNebs. REVIEW OF SYSTEMS: Twelve-point system review was obtained. Pertinent positives discussed in my history of present illness, otherwise noncontributory. All systems that were negative were reviewed as well. SOCIAL HISTORY: He has a history of tobacco use for about 18 years before quitting. PHYSICAL EXAMINATION: VITAL SIGNS: Reviewed. He is afebrile, pulse ox 95% on 2 liters. NECK: Supple. LUNGS: With rhonchi anteriorly in left lower chest. CARDIOVASCULAR: Regular rate and rhythm. ABDOMEN: Soft, distended, decreased bowel sounds. EXTREMITIES: With no pitting edema. LABORATORY DATA: Reviewed. White cell count 14.2, now 9.0, hemoglobin 13.0. BUN and creatinine 21 and 0.8. C. diff negative. IMPRESSION: 1. Postobstructive left lower lobe pneumonia. 2. 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 He is awaiting radiation treatment. 3. Underlying chronic obstructive pulmonary disease. 4. High grade small-bowel obstruction. RECOMMENDATIONS: 1. Continue with present oxygen. 2. Continue DuoNebs. 3. We will add empiric antibiotic. 4. Follow GI and Surgery recommendations. 5. Follow with Dr. Ruby's recommendation and initiate radiation treatment once clinically better. 6. Pain control. 7. We will follow along with you. SHANELL MOELLER MD DR: GILMA/jovanny JOB#: [id number] / [id number]
--- NOTE | 2018-06-24 14:55 | RAD ---
Acute abdomen series with chest, 3 views, 06/24/2018, 12:15 PM: HISTORY: Small bowel obstruction Comparison is made to a study from earlier the same day at 4:30 AM. An NG tube remains in place extending into the proximal aspect of the stomach. Gas is present in large and small bowel. Small bowel dilatation seen on previous studies has largely resolved. There are a few small residual scattered air-fluid levels. No free air seen in the abdomen. There is no evidence organomegaly. The heart size is unchanged. There appear to be scattered parenchymal scars. There is an unchanged left basilar opacity compatible with infiltrate and pleural fluid. No new pulmonary abnormality is seen. Blunting of the right lateral costophrenic angle suggests a small amount of right-sided pleural fluid. IMPRESSION: 1. Resolving small bowel obstruction. 2. The NG tube remains in place in the proximal stomach. 3. Unchanged left basilar pulmonary infiltrate and pleural fluid. 4. Probable small right pleural effusion. Electronically signed by: Ahmet Head MD (06/24/2018 2:51 PM) [facility]
[2018-06-24 15:00] VITALS: BP 109/60
--- NOTE | 2018-06-24 18:15 | NUR ---
NG tube clamped at 0915; per Dr. Gill, pt is not having discomfort, has had 2 BMs today, ok to remove NG tube after trial. Pt tolerating ice chips, NG tube removed at 1815.
[2018-06-24 18:44] VITALS: BP 128/62
[2018-06-24 23:00] VITALS: BP 125/65
[2018-06-25 03:00] VITALS: BP 129/62
[2018-06-25] MEDS: IV DEXTROSE 5%-LACT RINGERS 1,000 ML IV SCH ×2 (05:00→16:25)
[2018-06-25 06:35] VITALS: BP 138/73
[2018-06-25] MEDS: IPRATRPIUM/ALBUTEROL 0.5/2.5MG 3 ML NEBU. NEB SCH ×4 (07:38→19:21)
--- NOTE | 2018-06-25 08:19 | PDOC ---
Provider Note Provider Note vss, good output- ng out now- labs ok- rad rx 06/26, fluid trial re sbo now- DINO JON MD Jun 25, 2018 08:19
--- NOTE | 2018-06-25 08:45 | PDOC ---
PULMONARY PROGRESS NOTES Subjective PT NOT MORE SOA AT TIMES COUGH PRODUCTIVE Vitals Vital Signs Date Time Temp Pulse Resp B/P (MAP) Pulse Ox O2 Delivery O2 Flow Rate FiO2 06/25/18 07:40 96 Room Air 06/25/18 06:35 97.9 86 18 138/73 (94) 2.0 97.9 ROS: No Nausea, No Chest Pain, No Increase Cough General: Alert, No acute distress Lungs: Crackles Cardiovascular: S1, S2 Abdomen: Soft, Non-tender Extremities: No Edema, Other Medications Active Scripts Medications Dose Route/Sig Max Daily Dose Days Date Category Tramadol Hcl 50 Mg Tablet 50 Mg PO Q6HRS PRN 06/23/18 Reported Potassium Chloride 20 Meq Tablet.er 20 Meq PO DAILY 06/07/18 Reported Diltiazem 24HR Cd (Diltiazem Hcl) 120 Mg Cap.er.24h 1 Cap PO DAILY 06/07/18 Reported Lasix (Furosemide) 20 Mg Tablet 20 Mg PO BID 06/07/18 Reported Duoneb 0.5-3(2.5) Mg/3 Ml (Albuterol/Ipratropium) 3 Ml Ampul.neb 3 Ml NEB PRN Q6HRS PRN 11/26/17 Reported Advair 500-50 Diskus (Fluticasone/Salmeterol) 1 Each Disk.w.dev 1 Puff IH BID 07/04/17 Reported Impression . IMPRESSION: 1. Postobstructive left lower lobe pneumonia. 2. 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 He is awaiting radiation treatment. 3. Underlying chronic obstructive pulmonary disease. 4. High grade small-bowel obstruction. Plan . RESP STATUS IS COMPENSATED MAIN ISSUE IS SBO WILL FOLLOW HOME WHEN OK BY SURGERY NICOLAS ZAVALETA MD Jun 25, 2018 08:45
[2018-06-25 10:49] VITALS: BP 116/60
--- NOTE | 2018-06-25 11:39 | PDOC ---
JOVAN DUMONT CLINICAL DOCUMENTATION SPECIALIST 06/25/18 1139: SURGICAL PROGRESS NOTE Subjective + stool no n/v Vital Signs Vital Signs Date Time Temp Pulse Resp B/P (MAP) Pulse Ox O2 Delivery O2 Flow Rate FiO2 06/25/18 10:49 97.7 102 18 116/60 (78) 96 Nasal Cannula 2.0 97.7 I&O Intake and Output 06/25/18 07:01 Intake Total 1000 ml Output Total 0 ml Balance 1000 ml Intake Oral 0 ml IV Total 1000 ml Output Urine Total 0 ml # Voids 7 # Bowel Movements 1 General: Alert, Cooperative, No acute distress Abdomen: Soft, No tenderness Problem List Problems Medical Problems: (1) Bowel obstruction Status: Acute (2) Dehydration Status: Acute (3) Urinary tract infection Status: Acute Assessment/Plan improved slowly advance diet as tolerated SAWYER DAY MD 06/26/18 0927: SURGICAL PROGRESS NOTE Assessment/Plan Agree with above JOVAN DUMONT CLINICAL DOCUMENTATION SPECIALIST Jun 25, 2018 11:39 SAWYER DAY MD Jun 26, 2018 09:27
--- NOTE | 2018-06-25 14:40 | PDOC ---
Provider Note Provider Note 88 yo man admitted at this time for SBO. 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 No abd pain ,N or V. Breathing well with min cough. Eating all food offered him. PE NG tube absent. Abd no distended, no tenderness. Impression: SBO, resolved, St I squamous cell carcinoma of the Lt MSB. Will begin 10 day course of palliative radiation to Lt MSB region tomorrow 06/26. Ok to dc at anytime from my perspective when ok with GI and primary care services. EVELYN ZURITA MD Jun 25, 2018 14:40
[2018-06-25 15:02] VITALS: BP 120/64
--- NOTE | 2018-06-25 16:08 | NUR ---
SW following pt for anticipated dc needs. Chart reviewed. Pt lives at home with spouse and per RN ambulates well stand by/ad liam. OT recommends SNU at this time. SW will await for PT recommendation to evaluate SNU needs. SW confirmed with Adriana WALLS, pt was on service with the prior hospital admission. SW will continue to follow.
[2018-06-25 19:00] VITALS: BP 119/63
[2018-06-25] MEDS: LACTOBACILLUS RHAMNOSUS GG 1 CAPSULE. PO SCH (21:33)
[2018-06-25 23:09] VITALS: BP 126/51
[2018-06-26 03:25] VITALS: BP 110/65
[2018-06-26] MEDS: IV DEXTROSE 5%-LACT RINGERS 1,000 ML IV SCH (03:28)
[2018-06-26 07:00] VITALS: BP 122/65
[2018-06-26] MEDS: IPRATRPIUM/ALBUTEROL 0.5/2.5MG 3 ML NEBU. NEB SCH ×3 (07:15→15:13)
[2018-06-26] MEDS: LACTOBACILLUS RHAMNOSUS GG 1 CAPSULE. PO SCH (08:12)
--- NOTE | 2018-06-26 08:49 | PDOC ---
PULMONARY PROGRESS NOTES Subjective PT NOT MORE SOA AT TIMES COUGH PRODUCTIVE Vitals Vital Signs Date Time Temp Pulse Resp B/P (MAP) Pulse Ox O2 Delivery O2 Flow Rate FiO2 06/26/18 07:16 99 Nasal Cannula 2.0 06/26/18 07:00 97.4 82 20 122/65 (84) 97.4 ROS: No Nausea, No Chest Pain, No Increase Cough General: Alert, No acute distress Lungs: Crackles Cardiovascular: S1, S2 Abdomen: Soft, Non-tender Extremities: No Edema, Other Medications Active Scripts Medications Dose Route/Sig Max Daily Dose Days Date Category Tramadol Hcl 50 Mg Tablet 50 Mg PO Q6HRS PRN 06/23/18 Reported Potassium Chloride 20 Meq Tablet.er 20 Meq PO DAILY 06/07/18 Reported Diltiazem 24HR Cd (Diltiazem Hcl) 120 Mg Cap.er.24h 1 Cap PO DAILY 06/07/18 Reported Lasix (Furosemide) 20 Mg Tablet 20 Mg PO BID 06/07/18 Reported Duoneb 0.5-3(2.5) Mg/3 Ml (Albuterol/Ipratropium) 3 Ml Ampul.neb 3 Ml NEB PRN Q6HRS PRN 11/26/17 Reported Advair 500-50 Diskus (Fluticasone/Salmeterol) 1 Each Disk.w.dev 1 Puff IH BID 07/04/17 Reported Impression . IMPRESSION: 1. Postobstructive left lower lobe pneumonia. 2. 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 He is awaiting radiation treatment. 3. Underlying chronic obstructive pulmonary disease. 4. High grade small-bowel obstruction. Plan . RESP STATUS IS COMPENSATED POSSIBLE HOME TODAY NICOLAS ZAVALETA MD Jun 26, 2018 08:49
--- NOTE | 2018-06-26 09:08 | PDOC ---
Provider Note Provider Note sleeping, no dyspnea- vss- labs ok- advancing diet re sbo, ng out 24 hrs- will need snf as is at [facility] DINO JON MD Jun 26, 2018 09:08
--- NOTE | 2018-06-26 10:45 | PDOC ---
PROGRESS NOTES Subjective Subjective no complaints, no abdominal pain, having stools Objective Objective Vital Signs Date Time Temp Pulse Resp B/P (MAP) Pulse Ox O2 Delivery O2 Flow Rate FiO2 06/26/18 08:00 Room Air 06/26/18 07:16 99 2.0 06/26/18 07:00 97.4 82 20 122/65 (84) 97.4 Intake and Output 06/26/18 07:01 Intake Total 900 ml Output Total 275 ml Balance 625 ml Intake Oral 900 ml Output Urine Total 275 ml # Voids 5 # Bowel Movements 4 Physical Exam Abdomen: Soft, No tenderness Heart: Regular rate Extremities: No clubbing, No cyanosis General: Alert, Oriented X3 Lungs: Clear to auscultation Neuro: Normal speech Assessment Assessment Problems Medical Problems: (1) Bowel obstruction Status: Acute (2) Dehydration Status: Acute (3) Urinary tract infection Status: Acute Plan Plan of Care Ileus resolved; will sign off, please call if needed in the future Comment Review of Relevant I have reviewed the following items beverly (where applicable) has been applied. Labs Microbiology 06/22/18 Blood Culture - Preliminary, Resulted NO GROWTH AFTER 3 DAYS 06/22/18 Urine Culture - Final, Complete 06/22/18 Urine Culture Result 1 (MAXIMINO) - Final, Complete Medications Current Medications Sodium Chloride 1,000 ml @ 1,000 mls/hr 1X ONCE IV Last administered on at 17:55; Start 06/22/18 at 18:00; Stop 06/22/18 at 19:02; Status DC Ondansetron HCl (Zofran) 4 mg 1X ONCE IV Last administered on 06/22/18at 17:55 ; Start 06/22/18 at 18:15; Stop 06/22/18 at 18:16; Status DC Iohexol (Omnipaque 300 Mg/ml) 75 ml 1X ONCE IV Last administered on 06/22/18at 18:51; Start 06/22/18 at 19:00; Stop 06/22/18 at 19:02; Status DC Info (CONTRAST GIVEN -- Rx MONITORING) 1 each PRN DAILY PRN MC SEE COMMENTS; Start 06/22/18 at 18:45; Stop 06/24/18 at 18:44; Status DC Fentanyl Citrate (Fentanyl 2ml Vial) 50 mcg 1X ONCE IV Last administered on 05/29at 19:00; Start 06/22/18 at 19:15; Stop 06/22/18 at 19:16; Status DC Ondansetron HCl (Zofran) 4 mg PRN Q8HRS PRN IV NAUSEA/VOMITING; Start 06/22/18 at 20:00; Stop 06/23/18 at 19:59; Status DC Fentanyl Citrate (Fentanyl 2ml Vial) 50 mcg PRN Q1HR PRN IV PAIN Last administered on 06/22/18at 23:14; Start 06/22/18 at 20:00; Stop 06/23/18 at 19:59 ; Status DC Sodium Chloride 1,000 ml @ 125 mls/hr Q8H IV Last administered on 06/23/18at 12 :22; Start 06/22/18 at 19:58; Stop 06/23/18 at 19:57; Status DC Albuterol/ Ipratropium (Duoneb) 3 ml RTQID NEB Last administered on 06/23/18at 19:19; Start 06/22/18 at 20:00; Stop 06/23/18 at 19:59; Status DC Ceftriaxone Sodium (Rocephin) 1 gm 1X ONCE IVP Last administered on 06/22/18at 20:20; Start 06/22/18 at 20:30; Stop 06/22/18 at 20:31; Status DC Dextrose/Lactated Ringer's 1,000 ml @ 50 mls/hr Q20H IV Last administered on at 03:28; Start 06/23/18 at 20:45 Fentanyl Citrate (Fentanyl 2ml Vial) 50 mcg PRN Q2HR PRN IV PAIN; Start at 06:15 Albuterol/ Ipratropium (Duoneb) 3 ml RTQID NEB Last administered on 06/26/18at 07:15; Start 06/24/18 at 08:00 Ondansetron HCl (Zofran) 4 mg PRN Q8HRS PRN IV NAUSEA/VOMITING; Start 06/24/18 at 06:15 Throat Lozenges (Chloraseptic) 1 spray PRN Q2HR PRN PO SORE THROAT; Start 06/24 at 06:15 Levofloxacin/ Dextrose 100 ml @ 100 mls/hr Q24H IV Last administered on at 14:10; Start 06/24/18 at 14:00 Lactobacillus Rhamnosus (Culturelle) 1 cap BID PO Last administered on at 08:12; Start 06/25/18 at 21:00 Active Scripts Active Reported Tramadol Hcl 50 Mg Tablet 50 Mg PO Q6HRS PRN Potassium Chloride 20 Meq Tablet.er 20 Meq PO DAILY Diltiazem 24HR Cd (Diltiazem Hcl) 120 Mg Cap.er.24h 1 Cap PO DAILY Lasix (Furosemide) 20 Mg Tablet 20 Mg PO BID Duoneb 0.5-3(2.5) Mg/3 Ml (Albuterol/Ipratropium) 3 Ml Ampul.neb 3 Ml NEB PRN Q6HRS PRN Advair 500-50 Diskus (Fluticasone/Salmeterol) 1 Each Disk.w.dev 1 Puff IH BID Vitals/I & O Vital Sign - Last 24 Hours 06/25/18 06/25/18 06/25/18 06/25/18 10:49 11:38 15:02 15:34 Temp 97.7 97.9 97.7 97.9 Pulse 102 104 Resp 18 18 B/P (MAP) 116/60 (78) 120/64 (82) Pulse Ox 96 96 O2 Delivery Nasal Cannula Nasal Cannula Nasal Cannula Nasal Cannula O2 Flow Rate 2.0 2.0 2.0 2.0 06/25/18 06/25/18 06/25/18 06/25/18 19:00 19:21 20:20 23:09 Temp 98.3 97.9 98.3 97.9 Pulse 98 81 Resp 20 20 B/P (MAP) 119/63 (81) 126/51 (76) Pulse Ox 95 96 94 O2 Delivery Nasal Cannula Nasal Cannula Nasal Cannula Nasal Cannula O2 Flow Rate 2.0 2.0 06/26/18 06/26/18 06/26/18 06/26/18 03:25 07:00 07:16 08:00 Temp 98.2 97.4 98.2 97.4 Pulse 88 82 Resp 20 20 B/P (MAP) 110/65 (80) 122/65 (84) Pulse Ox 95 94 99 O2 Delivery Nasal Cannula Nasal Cannula Nasal Cannula Room Air O2 Flow Rate 2.0 2.0 Intake and Output 1/15/19 1/15/19 1/16/19 15:01 23:01 07:01 Intake Total 600 ml 300 ml Output Total 275 ml Balance 600 ml 300 ml -275 ml SAWYER DAY MD Jun 26, 2018 10:45
[2018-06-26 11:00] VITALS: BP 108/60
[2018-06-26 15:00] VITALS: BP 106/64
--- NOTE | 2018-06-26 15:08 | PDOC ---
Provider Note Provider Note 88 yo man admitted with SBO which resolved with conservative measures. 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 Radiation treatment begun today. Plan on 10 day course of treatment. DC plans in progress. Spouse is in [place] and patient may need SNU placement for DC as noted in other patient assessments. We will continue inpatient treatment as planned while hospitalized here and then continue as an outpatient following discharge. EVELYN ZURITA MD Jun 26, 2018 15:07
--- NOTE | 2018-06-27 08:36 | PDOC ---
Provider Note Provider Note [id number] DINO JON MD Jun 27, 2018 08:36
--- NOTE | 2018-06-27 08:50 | DS ---
DATE OF DISCHARGE: 06/26/2018 HOSPITAL SUMMARY: An 88-year-old white male came in with previous known left mainstem bronchial squamous cell cancer and then vomiting and constipation consistent with small-bowel obstruction. CT scan showed high grade mid small-bowel obstruction and stomach distention as well. Chemistry profile and CBC were unremarkable. Lipase was low. C. diff toxin was negative. Urine cultures and blood cultures had no growth. He was treated with NG suction and IV fluids and he clinically improved and was able to slowly advance his diet and at the time of discharge, was comfortable that he was able to eat and drink and be followed as an outpatient. He was planning to start radiation therapy that same day under the care of Dr. Ruby for his squamous cell cancer of the left mainstem bronchus. FINAL DIAGNOSES: 1. Abdominal pain secondary to small-bowel obstruction. 2. 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 OPERATIONS, PROCEDURES, COMPLICATIONS: None. CONSULTATIONS: Dr. Gill. Dr. Ruby and Dr. Del Angel. DISPOSITION: Discharged home with all medicines remain the same. Diet advance as tolerated. Radiation therapy under the direction of Dr. Ruby and follow up with Dr. Del Angel regarding the lung cancer and pneumonia that is postobstructive. His prognosis is poor given his incurable lung cancer status and the possibility of recurrent small-bowel obstruction. DINO JON MD DR: DMAI/jovanny JOB#: [id number] / [id number]
[2018-06-27] MEDS ORDERED: ALBU2.5V8 INH (15:57)
--- NOTE | 2018-07-04 14:29 | HP ---
ADMIT DATE: 06/22/2018 CHIEF COMPLAINT: Abdominal pain. HISTORY OF PRESENT ILLNESS: The patient came in with abdominal pain, nausea and vomiting. CT scan showed evidence of small-bowel obstruction and he has an NG tube in place at this time. He is sleeping and not able to provide history. PAST MEDICAL HISTORY: Unremarkable. MEDICATIONS: Listed per the chart. No unusual. He had recently found to have left mainstem bronchus. Biopsy proved to be a squamous cell carcinoma and seemed to be starting radiation therapy. SOCIAL HISTORY: He quit smoking years ago, , not physically active, nondrinker. FAMILY HISTORY: Unremarkable. REVIEW OF SYSTEMS: Mild constipation. Otherwise, unremarkable. OBJECTIVE: ENT: NG tube in place, otherwise unremarkable. NECK: No masses, nodes or thyroid enlargement. LUNGS: Clear. CARDIOVASCULAR: Regular rate. No irregular beat or murmur. ABDOMEN: Quiet, hyperactive bowel sounds. Otherwise, no masses are felt. EXTREMITIES: Unremarkable. NEUROLOGIC: Physiologic and nonfocal. ASSESSMENT: 1. Small-bowel obstruction, etiology undetermined, may be related to constipation. 2. Recently diagnosed left mainstem squamous cell carcinoma. 3. Advanced age. PLAN: NG suction and comfort care and supportive care. DINO JON MD DR: DAMI/jovanny JOB#: [id number] / [id number]
[2018-08-09] MEDS ORDERED: FURO-69 PO (10:28)
[2018-09-16] MEDS ORDERED: FURO-69 PO (11:56)
== END 2018-06-26 19:58 | disposition home health service (06) | DRG 871 ==
LOC: ER 17:22 → 5 NORTH 19:34
PROVIDERS: ADMIT Family Medicine; ATTEND Family Medicine
PROC: 0D9670Z Drainage of Stomach with Drainage Device, Via Natural or Artificial Opening (ICD-10-PCS; principal; 2018-06-22)
DX: A41.9 Sepsis, unspecified organism (principal); J18.1 Lobar pneumonia, unspecified organism; K56.609 Unspecified intestinal obstruction, unspecified as to partial versus complete obstruction; C34.02 Malignant neoplasm of left main bronchus; N39.0 Urinary tract infection, site not specified; J44.0 Chronic obstructive pulmonary disease with (acute) lower respiratory infection; E86.0 Dehydration; I48.91 Unspecified atrial fibrillation; Z85.118 Personal history of other malignant neoplasm of bronchus and lung; Z87.01 Personal history of pneumonia (recurrent); Z87.891 Personal history of nicotine dependence; M19.90 Unspecified osteoarthritis, unspecified site; Z85.9 Personal history of malignant neoplasm, unspecified
CPT/HCPCS: 36415; 71045; 74018; 74022; 74177; 77290; 77295; 77300; 77334; 77412; 80048; 80053; 81001; 82150; 83605; 83690; 83880; 85007; 85025; 87040; 87086; 87493; 94640; 94760; 96361; 96374; 96375; G0238; J0696; J1956; J2405; J3010; J7030; J7620; Q9967; 97110; 97116; 99285-25; G0378

== ENCOUNTER 2018-08-01 12:31 | Emergency (ER) | payer MEDICARE ==
[~2018-08-01] VITALS: Ht 170.2 cm; Wt 72.6 kg
[~2018-08-01 12:31] MED LIST changes: +ALBU2.5V8 INH; +TRAM50TA PO
[2018-08-01] MEDS ORDERED: HYDROcodone/APAP 5/325MG 1 TAB TABLET PO ONE (15:45)
[2018-08-01] MEDS ORDERED: DIPHTH,PERTUSS(ACELL),TET TOX 0.5 ML DISP.SYRIN. VAX IM ONE (15:45)
--- NOTE | 2018-08-01 16:13 | RAD ---
Examination: 2 views of the left shoulder, 3 views of the left elbow, 3 views of the left hand HISTORY: History of pain, bruising from fall COMPARISON: None available. FINDINGS: The left humerus head is within the glenoid. Mild degenerative changes identified in the left glenohumeral joint, acromioclavicular joint. The alignment of the elbow joint grossly appears unremarkable. However evaluation is limited due to positioning. Severe degenerative changes identified in the first carpometacarpal joint. Moderate degenerative changes identified in the first, second, third metacarpophalangeal joints. Curvilinear sclerotic density identified in the head of the third metacarpal could be avascular necrosis. IMPRESSION: 1. No acute osseous findings. 2. Degenerative changes first carpometacarpal joint and first, second, third metacarpophalangeal joints. 3. Curvilinear sclerotic density identified in the head of the third metacarpal could be avascular necrosis. Electronically signed by: Idris Mejía MD (08/01/2018 4:10 PM) [place] [id number]
[2018-08-01] MEDS ORDERED: ACET-704 PO (17:48)
--- NOTE | 2018-08-01 17:49 | PHYS DOC ---
Past Medical History Past Medical History: A-Fib, Cancer, COPD, Pneumonia, Other Additional Past Medical Histor: squamous cell left lung CA Past Surgical History: No Surgical History Additional Past Surgical Histo: denies Alcohol Use: None Drug Use: None Adult General Chief Complaint Chief Complaint: MECHANICAL FALL HPI HPI Patient is a 88 year old male who presents to the ED today to get evaluated status post falling. Patient was outside when he slipped on ice fell landing on his left shoulder. Denies any loss of consciousness. He is complaining of 10 out of 10 left shoulder pain, left elbow pain, left hand pain. Patient denies hitting his head on the ground. Denies any neck or back pain. He is on oxygen chronically. Review of Systems Review of Systems Constitutional: Denies fever or chills [] Eyes: Denies change in visual acuity, redness, or eye pain [] HENT: Denies nasal congestion or sore throat [] Respiratory: Denies cough or shortness of breath [] Cardiovascular: No additional information not addressed in HPI [] GI: Denies abdominal pain, nausea, vomiting, bloody stools or diarrhea [] : Denies dysuria or hematuria [] Musculoskeletal: He reports left shoulder pain, left elbow pain, left hand pain. Denies back pain Integument: Denies rash or skin lesions [] Neurologic: Denies headache, focal weakness or sensory changes [] All other systems were reviewed and found to be within normal limits, except as documented in this note. Current Medications Current Medications Current Medications Medications (Trade) Dose Ordered Sig/Alessandra Start Time Stop Time Status Last Admin Dose Admin Acetaminophen/ Hydrocodone Bitart (Lortab 5/325) 1 tab 1X ONCE 08/01/18 15:45 08/01/18 15:46 DC 08/01/18 15:47 1 TAB Diphtheria/ Tetanus/Acell Pertussis (Boostrix) 0.5 ml ONCE ONCE 08/01/18 15:45 08/01/18 15:46 DC 08/01/18 15:48 0.5 ML Allergies Allergies Allergies Coded Allergies Type Severity Reaction Last Updated Verified No Known Drug Allergies 06/14/18 No Physical Exam Physical Exam Constitutional: Well developed, well nourished, no acute distress, non-toxic appearance. [] HENT: Normocephalic, atraumatic, bilateral external ears normal, oropharynx moist, no oral exudates, nose normal. [] Eyes: PERRLA, EOMI, conjunctiva normal, no discharge. [] Neck: Normal range of motion, no tenderness, supple, no stridor. [] Cardiovascular:Heart rate regular rhythm, no murmur [] Lungs & Thorax: Patient on oxygen 2 L chronically. Bilateral breath sounds clear to auscultation [] Abdomen: Bowel sounds normal, soft, no tenderness, no masses, no pulsatile masses. [] Skin: Warm, dry, no erythema, no rash. [] Back: No tenderness, no CVA tenderness. [] Extremities: Left shoulder left upper extremity with no obvious deformity. There is a skin tear approximately 4 cm long on the left lateral elbow. There is also another superficial laceration on the left ring finger tip approx. 1 cm. full range of motion to the left upper extremity. Adequate radial, medial, ulnar sensation to the left hand. +2 left radial pulse. Cap refill less than 2 seconds the left fingers. Neurologic: Alert and oriented X 3, normal motor function, normal sensory function, no focal deficits noted. [] Psychologic: Affect normal, judgement normal, mood normal. [] Current Patient Data Vital Signs Vital Signs Date Time Temp Pulse Resp B/P (MAP) Pulse Ox O2 Delivery O2 Flow Rate FiO2 08/01/18 15:47 16 99 Room Air 08/01/18 13:25 97.9 75 118/61 (80) 2.0 97.9 EKG EKG [] Radiology/Procedures Radiology/Procedures []PROCEDURE: ELBOW LEFT 3V Examination: 2 views of the left shoulder, 3 views of the left elbow, 3 views of the left hand HISTORY: History of pain, bruising from fall COMPARISON: None available. FINDINGS: The left humerus head is within the glenoid. Mild degenerative changes identified in the left glenohumeral joint, acromioclavicular joint. The alignment of the elbow joint grossly appears unremarkable. However evaluation is limited due to positioning. Severe degenerative changes identified in the first carpometacarpal joint. Moderate degenerative changes identified in the first, second, third metacarpophalangeal joints. Curvilinear sclerotic density identified in the head of the third metacarpal could be avascular necrosis. IMPRESSION: 1. No acute osseous findings. 2. Degenerative changes first carpometacarpal joint and first, second, third metacarpophalangeal joints. 3. Curvilinear sclerotic density identified in the head of the third metacarpal could be avascular necrosis. Electronically signed by: Idris Mejía MD (08/01/2018 4:10 PM) [facility] DICTATED and SIGNED BY: IDRIS MEJÍA MD DATE: 08/01/18 1609 Course & Med Decision Making Course & Med Decision Making Pertinent Labs and Imaging studies reviewed. (See chart for details) This is a 88-year-old male patient presenting to the ED today to be evaluated status post falling. No loss of consciousness, patient did not hit his head on the ground. Left shoulder, left elbow, left hand x-rays interpreted by radiologist were negative for any acute findings, noted for curvilinear sclerotic density identified in the head of the third metacarpal could be avascular necrosis. I doubt this is a vascular necrosis the provided patient instructions to follow- up with orthopedic doctor. Patient lacerations were cleaned and covered with Steri-Strips and nonstick dressing. Follow-up with PCP in one week. Dragon Disclaimer Dragon Disclaimer This electronic medical record was generated, in whole or in part, using a voice recognition dictation system. Departure Departure Impression: Primary Impression: Fall from standing Additional Impressions: Contusion of left shoulder Left elbow contusion Laceration of left elbow Contusion of left hand Laceration of left ring finger Disposition: ADMITTED INPATIENT Condition: STABLE Referrals: YAMILEX EVERETT MD (PCP) Follow-up in a week SASCHA BECKETT MD follow up in 1 week Patient Instructions: Contusion, Fall Prevention and Home Safety Additional Instructions: You were evaluated in the emergency room after falling. Your x-rays were negative for any acute findings, you were noted to have a possibility of a vascular necrosis to your left middle finger. Follow-up with the orthopedic doctor for this. Take the prescribed pain medicine as needed for pain. Scripts Acetaminophen With Codeine (TYLENOL WITH CODEINE #3 TABLET) 1 Each Tablet 1 TAB PO PRN Q6HRS PRN for PAIN, #20 TAB Prov: LEVAR REYES HOME ECONOMIST 08/01/18 Problem Qualifiers Primary Impression: Fall from standing Encounter type: initial encounter Qualified Codes: W19.XXXA - Unspecified fall, initial encounter Additional Impressions: Contusion of left shoulder Encounter type: initial encounter Qualified Codes: S40.012A - Contusion of left shoulder, initial encounter Left elbow contusion Encounter type: initial encounter Qualified Codes: S50.02XA - Contusion of left elbow, initial encounter Laceration of left elbow Encounter type: initial encounter Qualified Codes: S51.012A - Laceration without foreign body of left elbow, initial encounter Contusion of left hand Encounter type: initial encounter Qualified Codes: S60.222A - Contusion of left hand, initial encounter Laceration of left ring finger Encounter type: initial encounter Damage to nail status: without damage Foreign body presence: unspecified Qualified Codes: S61.215A - Laceration without foreign body of left ring finger without damage to nail, initial encounter LEVAR REYES APRN Aug 01, 2018 17:49
[2018-08-01 18:00] VITALS: BP 144/78
[2018-08-09] MEDS ORDERED: FURO-69 PO (10:28)
[2018-09-16] MEDS ORDERED: FURO-69 PO (11:56)
== END 2018-08-01 18:16 | disposition home or self-care (01) ==
LOC: ER 12:31
DX: S61.215A Laceration without foreign body of left ring finger without damage to nail, initial encounter (principal); S51.012A Laceration without foreign body of left elbow, initial encounter; S40.012A Contusion of left shoulder, initial encounter; S60.222A Contusion of left hand, initial encounter; J44.9 Chronic obstructive pulmonary disease, unspecified; I48.91 Unspecified atrial fibrillation; W18.39XA Other fall on same level, initial encounter; Y93.89 Activity, other specified; Y92.89 Other specified places as the place of occurrence of the external cause; Y99.8 Other external cause status
CPT/HCPCS: 73030; 73080; 73130; 90471; 90715; 99285-25

== ENCOUNTER → 2018-09-12 | Outpatient (CLI) | payer MEDICARE ==
[~2018-09-12] MED LIST changes: +ACET-704 PO
--- NOTE | 2018-09-12 16:28 | RAD ---
CT CHEST WO CONTRAST Indication: LUNG CA, PRIOR SENT Exposure: One or more of the following individualized dose reduction techniques were utilized for this examination: 1. Automated exposure control 2. Adjustment of the mA and/or kV according to patient size 3. Use of iterative reconstruction technique. Technique: Standard imaging without intravenous contrast. Comparison: June 08, 2018. Only the inferior most thyroid gland is included. Limited vascular evaluation without contrast. Aorta is calcified without evidence of aneurysm. No significant lymph node enlargement. No evidence of pericardial effusion. Coronary artery calcifications. Small left pleural effusion, slightly smaller as compared with prior study. Consolidation in the left lower lobe is identified but less than what was seen previously. Narrowing of the left main bronchus is identified, but has improved as compared with the prior study. Mild bronchial wall thickening, particularly in the left lower lobe. Small nodule in the right lower lobe, series 3, image 35, measures 6 mm, and is unchanged. Some very small nodular opacities in the right upper lobe are unchanged. Scans to the upper abdomen are limited by technique, there is mild distention of small bowel with gas in the left upper quadrant. Degenerative spondylosis is identified. There is a severe compression fracture of a thoracic vertebral body, with subsequent hyperkyphosis, is redemonstrated. Degenerative spondylosis with stenosis is again identified. IMPRESSION: 1. Consolidation in the left lower lobe. This may be inflammatory or infectious but involvement by the patient's known lung cancer is possible. Note that the overall consolidation has improved. Small left pleural effusion, this is also improved. Narrowing of the left mainstem bronchus is identified but has improved as well. 2. Stable right lower lobe pulmonary nodule. 3. Mild nonspecific distention of left upper quadrant small bowel with gas. Consider abdominal radiographs the patient is symptomatic. Electronically signed by: Ricky Leija MD (09/12/2018 4:25 PM) [id number]
== END | disposition home or self-care (01) ==
LOC: CT 13:43
PROVIDERS: ATTEND Radiology Radiation Oncology
DX: C34.02 Malignant neoplasm of left main bronchus (principal); J90 Pleural effusion, not elsewhere classified; R91.1 Solitary pulmonary nodule; M84.48XA Pathological fracture, other site, initial encounter for fracture; R14.0 Abdominal distension (gaseous); M47.814 Spondylosis without myelopathy or radiculopathy, thoracic region; M48.04 Spinal stenosis, thoracic region; I25.10 Atherosclerotic heart disease of native coronary artery without angina pectoris
CPT/HCPCS: 71250

== ENCOUNTER 2019-01-06 12:28 | Emergency (ER) | payer MEDICARE ==
[~2019-01-06] VITALS: Ht 177.8 cm; Wt 72.6 kg
--- NOTE | 2019-01-06 13:44 | EKG ---
[facility] [address] [place] [address] Test Date: 2019-01-06 Test Time: 13:37:34 Pat Name: BERTHA CROWE Department: Room: Gender: M Energy Efficiency Specialist: : [id number] Requested By: HILTON SCALES Order Number: [id number] Reading MD: Measurements Intervals [place] Rate: 74 P: 63 NM: 162 QRS: 14 QRSD: 88 T: 38 QT: 410 QTc: 456 Interpretive Statements SINUS RHYTHM LOW LIMB LEAD VOLTAGE NO SPECIFIC ECG ABNORMALITIES RI6.01 No previous ECG available for comparison
--- NOTE | 2019-01-06 14:02 | PHYS DOC ---
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 Currently the patient denies any pain. ROS He denies any chest pain, palpitations, nausea, vomiting, diarrhea, fever, abdominal pain, dysuria, back pain, hematuria, or rash. He states he has been taking his breathing treatments at home with no relief of his symptoms. He denies any swelling of his lower extremities. Review of Systems Review of Systems See Above Current Medications Current Medications Current Medications Medications (Trade) Dose Ordered Sig/Alessandra Start Time Stop Time Status Last Admin Dose Admin Albuterol Sulfate (Ventolin Neb Soln) 2.5 mg 1X ONCE 01/06/19 15:45 01/06/19 15:46 Allergies Allergies Allergies Coded Allergies Type Severity Reaction Last Updated Verified No Known Drug Allergies 06/14/18 No Physical Exam Physical Exam Constitutional: Well developed, well nourished, no acute distress, non-toxic trung earance. [] HENT: Normocephalic, atraumatic, bilateral external ears normal, oropharynx moist, no oral exudates, nose normal. [] Eyes: PERRLA, EOMI, conjunctiva normal, no discharge. [] Neck: Normal range of motion, no tenderness, supple, no stridor. [] Cardiovascular:Heart rate regular rhythm, no murmur [] Lungs & Thorax: Bilateral breath sounds clear to auscultation [] Abdomen: Bowel sounds normal, soft, no tenderness, no masses, no pulsatile masses. [] Skin: Warm, dry, no erythema, no rash. [] Back: No tenderness, no CVA tenderness. [] Extremities: No tenderness, no cyanosis, no clubbing, ROM intact, no edema. [] Neurologic: Alert and oriented X 3, normal motor function, normal sensory function, no focal deficits noted. [] Psychologic: Affect normal, judgement normal, mood normal. [] Current Patient Data Vital Signs Vital Signs Date Time Temp Pulse Resp B/P (MAP) Pulse Ox O2 Delivery O2 Flow Rate FiO2 01/06/19 14:02 97.8 68 27 117/49 (71) 95 Nasal Cannula 2.0 97.8 Lab Values Laboratory Tests Test 01/06/19 14:07 White Blood Count 5.0 x10^3/uL (4.0-11.0) Red Blood Count 3.99 x10^6/uL (4.30-5.70) L Hemoglobin 12.3 g/dL (13.0-17.5) L Hematocrit 36.7 % (39.0-53.0) L Mean Corpuscular Volume 92 fL (79-100) Mean Corpuscular Hemoglobin 31 pg (25-35) Mean Corpuscular Hemoglobin Concent 34 g/dL (31-37) Red Cell Distribution Width 13.3 % (11.5-14.5) Platelet Count 196 x10^3/uL (140-400) Neutrophils (%) (Auto) 74 % (31-73) H Lymphocytes (%) (Auto) 15 % (24-48) L Monocytes (%) (Auto) 9 % (0-9) Eosinophils (%) (Auto) 2 % (0-3) Basophils (%) (Auto) 0 % (0-3) Neutrophils # (Auto) 3.7 x10^3/uL (1.8-7.7) Lymphocytes # (Auto) 0.7 x10^3/uL (1.0-4.8) L Monocytes # (Auto) 0.5 x10^3/uL (0.0-1.1) Eosinophils # (Auto) 0.1 x10^3/uL (0.0-0.7) Basophils # (Auto) 0.0 x10^3/uL (0.0-0.2) Prothrombin Time 13.7 SEC (11.7-14.0) Prothrombin Time INR 1.1 (0.8-1.1) PTT 34 SEC (24-38) Sodium Level 138 mmol/L (136-145) Potassium Level 4.2 mmol/L (3.5-5.1) Chloride Level 101 mmol/L (98-107) Carbon Dioxide Level 33 mmol/L (21-32) H Anion Gap 4 (6-14) L Blood Urea Nitrogen 10 mg/dL (8-26) Creatinine 0.7 mg/dL (0.7-1.3) Estimated GFR (Cockcroft-Gault) 106.9 BUN/Creatinine Ratio 14 (6-20) Glucose Level 94 mg/dL (70-99) Calcium Level 8.9 mg/dL (8.5-10.1) Total Bilirubin 0.8 mg/dL (0.2-1.0) Aspartate Amino Transferase (AST) 16 U/L (15-37) Alanine Aminotransferase (ALT) 17 U/L (16-63) Alkaline Phosphatase 91 U/L (46-116) Troponin I Quantitative < 0.017 ng/mL (0.000-0.055) UH-Luy-C-Type Natriuretic Peptide 350 pg/mL (0-449) Total Protein 6.6 g/dL (6.4-8.2) Albumin 2.8 g/dL (3.4-5.0) L Albumin/Globulin Ratio 0.7 (1.0-1.7) L Laboratory Tests 01/06/19 14:07 Laboratory Tests 01/06/19 14:07 EKG EKG 1337- SR rate 74 no STEMI read by Dr. Ye[] Radiology/Procedures Radiology/Procedures PROCEDURE: CHEST PA & LATERAL Exam performed: 2 views chest HISTORY: Shortness of air. DATE OF SERVICE: 01/06/2019. COMPARISON: 11/27/2018. The and lateral views chest findings: Development of parenchymal opacity in the left lower lobe obscuring portion of the left hemidiaphragm and cardiac silhouette. There is blunting of the left costophrenic angle. Minimal blunting of the right costophrenic angle also seen. There is no pneumothorax. IMPRESSION: Development of infiltrates left lower lobe with small left right pleural effusion. Minimal blunting right costophrenic angle likely tiny effusion or pleural thickening.[] Course & Med Decision Making Course & Med Decision Making Pertinent Labs and Imaging studies reviewed. (See chart for details) Dx: SOA, left lower lobe pneumonia Ddx: ACS, STEMI, PE, CBC mild anemia, CMP unremarkable, troponin <0.017, BNP 350 EKG no acute findings no STEMI CXR infiltrates left lower lobe with small left right pleural effusion. Discussed these findings with the patient and his family. Offered admission, patient declines states he would like to go home with antibiotics. Patient was instructed to take his breathing treatments every 4-6 hours as needed, and to follow-up with his primary care doctor in the next 1-2 days. Continue wearing home O2 as needed. Tylenol or ibuprofen as needed for fever/pain. We'll prescribe Levaquin 750 mg tablets one by mouth daily �5 days. Fill the prescription and use it as directed. Patient and his family verbalized an understanding of home care, medications, follow-up, and return to ED instructions and was in agreement with the plan of care. [] Dragon Disclaimer Dragon Disclaimer This electronic medical record was generated, in whole or in part, using a voice recognition dictation system. Departure Departure Impression: Primary Impression: Pneumonia Additional Impression: Shortness of breath Disposition: HOME, SELF-CARE Condition: STABLE Referrals: YAMILEX EVERETT MD (PCP) Patient Instructions: Pneumonia, Adult, [id number] Additional Instructions: Fill the prescription and use as directed. Wear your home O2 as needed. Take breathing treatments every 4-6 hours as needed for shortness of breath. Follow- up with your primary care doctor in 1-2 days. Return to the ER if your symptoms worsen. Scripts Levofloxacin (LEVAQUIN) 750 Mg Tablet 1 TAB PO DAILY, #5 TAB 0 Refills Prov: HILTNO SCALES SUPERVISOR WRAPPING ROOM 01/06/19 Problem Qualifiers Primary Impression: Pneumonia Pneumonia type: due to unspecified organism Laterality: left Lung loc ation: lower lobe of lung Qualified Codes: J18.1 - Lobar pneumonia, unspecified organism HILTON SCALES SUPERVISOR [employer] ROOM Jan 06, 2019 14:02
[2019-01-06 14:15] LABS: BASO % 0 % (0-3); EOS # 0.1 x10^3/uL (0.0-0.7); EOS % 2 % (0-3); HEMATOCRIT 36.7 % (39.0-53.0); HEMOGLOBIN 12.3 g/dL (13.0-17.5); LYMPH # 0.7 x10^3/uL (1.0-4.8); LYMPH % 15 % (24-48); MEAN CORPUSCULAR HEMOGLOBIN 31 pg (25-35); MEAN CORPUSCULAR HGB CONC 34 g/dL (31-37); MEAN CORPUSCULAR VOLUME 92 fL (79-100); MONO # 0.5 x10^3/uL (0.0-1.1); MONO % 9 % (0-9); NEUT # 3.7 x10^3/uL (1.8-7.7); NEUT % 74 % (31-73); PLATELET COUNT 196 x10^3/uL (140-400); RED BLOOD COUNT 3.99 x10^6/uL (4.30-5.70); RED CELL DISTRIBUTION WIDTH 13.3 % (11.5-14.5)
[2019-01-06 14:26] LABS: PROTHROMBIN TIME PATIENT 13.7 SEC (11.7-14.0)
[2019-01-06 14:30] LABS: CALCIUM 8.9 mg/dL (8.5-10.1); CREATININE 0.7 mg/dL (0.7-1.3); GFR 106.9; POTASSIUM 4.2 mmol/L (3.5-5.1)
--- NOTE | 2019-01-06 14:31 | RAD ---
Exam performed: 2 views chest HISTORY: Shortness of air. DATE OF SERVICE: 01/06/2019. COMPARISON: 11/27/2018. The and lateral views chest findings: Development of parenchymal opacity in the left lower lobe obscuring portion of the left hemidiaphragm and cardiac silhouette. There is blunting of the left costophrenic angle. Minimal blunting of the right costophrenic angle also seen. There is no pneumothorax. IMPRESSION: Development of infiltrates left lower lobe with small left right pleural effusion. Minimal blunting right costophrenic angle likely tiny effusion or pleural thickening. Electronically signed by: Maria Fernanda Barron MD (01/06/2019 2:28 PM) [facility]
[2019-01-06 14:35] LABS: ALBUMIN 2.8 g/dL (3.4-5.0); ALBUMIN/GLOBULIN RATIO 0.7 (1.0-1.7); TOTAL BILIRUBIN 0.8 mg/dL (0.2-1.0); TOTAL PROTEIN 6.6 g/dL (6.4-8.2)
[2019-01-06] MEDS ORDERED: ALBUTEROL SULFATE 2.5 MG/3 ML NEBU. NEB ONE (15:45)
[2019-01-06] MEDS ORDERED: LEVO750T31 PO (15:47)
[2019-01-06 16:15] VITALS: BP 113/59
== END 2019-01-06 16:17 | disposition home or self-care (01) ==
LOC: ER 12:28
DX: J18.1 Lobar pneumonia, unspecified organism (principal); I48.91 Unspecified atrial fibrillation; J44.9 Chronic obstructive pulmonary disease, unspecified
CPT/HCPCS: 36415; 71046; 80053; 83880; 84484; 85025; 85610; 85730; 93005; 94640; 99285; J7613

== ENCOUNTER 2019-04-01 22:17 | Inpatient (IN) | payer MEDICARE ==
[~2019-04-01] VITALS: Ht 157.5 cm; Wt 74.4 kg
[~2019-04-01 22:17] MED LIST changes: -DILT120C85 PO; +DILT120C99 PO; +LEVO750T31 PO
[2019-04-01] MEDS ORDERED: MORPHINE SULFATE 4 MG/ML VIAL. IV/SQ PRN (23:45)
[2019-04-01] MEDS ORDERED: IV NORMAL SALINE 1000ML BAG 1,000 ML IV SCH (23:45)
[2019-04-01] MEDS ORDERED: ONDANSETRON PF 4 MG/2 ML VIAL. IV ONE (23:45)
[2019-04-01 23:48] LABS: BASO % 0 % (0-3); EOS # 0.1 x10^3/uL (0.0-0.7); EOS % 1 % (0-3); HEMATOCRIT 42.1 % (39.0-53.0); HEMOGLOBIN 14.2 g/dL (13.0-17.5); LYMPH # 0.8 x10^3/uL (1.0-4.8); LYMPH % 10 % (24-48); MEAN CORPUSCULAR HEMOGLOBIN 30 pg (25-35); MEAN CORPUSCULAR HGB CONC 34 g/dL (31-37); MEAN CORPUSCULAR VOLUME 89 fL (79-100); MONO # 0.6 x10^3/uL (0.0-1.1); MONO % 7 % (0-9); NEUT # 6.4 x10^3/uL (1.8-7.7); NEUT % 82 % (31-73); PLATELET COUNT 253 x10^3/uL (140-400); RED BLOOD COUNT 4.72 x10^6/uL (4.30-5.70); RED CELL DISTRIBUTION WIDTH 14.6 % (11.5-14.5); WHITE BLOOD COUNT 7.8 x10^3/uL (4.0-11.0)
[2019-04-01 23:57] LABS: PROTHROMBIN TIME PATIENT 12.7 SEC (11.7-14.0)
[2019-04-02] VITALS (16 sets, daily range): BP systolic 82–113; BP diastolic 48–67
[2019-04-02 00:01] LABS: CALCIUM 9.4 mg/dL (8.5-10.1); CREATININE 0.9 mg/dL (0.7-1.3); GFR 79.8; POTASSIUM 4.8 mmol/L (3.5-5.1)
[2019-04-02 00:07] LABS: ALBUMIN 3.7 g/dL (3.4-5.0); ALBUMIN/GLOBULIN RATIO 0.9 (1.0-1.7); TOTAL BILIRUBIN 1.1 mg/dL (0.2-1.0)
--- NOTE | 2019-04-02 00:20 | RAD ---
Indication:Vomiting TECHNIQUE: Single supine AP view of the abdomen and pelvis COMPARISON: 11/29/2018 FINDINGS: Dilated loops of small bowel seen in the mid abdomen. Visualized bones are within normal limits. Right lung base clear. IMPRESSION: Findings highly concerning of small bowel obstruction. Electronically signed by: Marek Cristina DO (04/02/2019 12:17 AM) [facility]
[2019-04-02] MEDS ORDERED: CONTRAST GIVEN. MC PRN (00:45)
[2019-04-02] MEDS ORDERED: IOHEXOL 300 MG/ML 100ML VIAL. IV ONE (00:45)
--- NOTE | 2019-04-02 00:49 | PHYS DOC ---
Past Medical History Past Medical History: A-Fib, Cancer, CHF, Constipation, COPD, Pneumonia, Other Additional Past Medical Histor: squamous cell left lung CA,BOWEL OBSTRUCTION Past Surgical History: No Surgical History Additional Past Surgical Histo: denies Alcohol Use: None Drug Use: None Adult General Chief Complaint Chief Complaint: GI PROBLEM HPI HPI Patient is a 89 year old male presenting to the due to chief complaint of abdominal pain and vomiting. Patient states that he is on hospice care second or to multiple medical issues. Patient states this is a history of lung cancer. He also has COPD. Patient states that this morning he started vomiting and he could not bear the pain as a came into the ED. Patient does say that he has history of bowel obstruction. Review of Systems Review of Systems Constitutional: Denies fever or chills [] HENT: Denies nasal congestion or sore throat [] Respiratory: Brains of chronic shortness of breath Cardiovascular: Patient denies chest pain GI: Complains of diffuse abdominal tenderness and vomiting : Denies dysuria or hematuria [] Musculoskeletal: Denies back pain or joint pain [] All other systems were reviewed and found to be within normal limits, except as documented in this note. Current Medications Current Medications Current Medications Medications (Trade) Dose Ordered Sig/Alessandra Start Time Stop Time Status Last Admin Dose Admin Info (CONTRAST GIVEN -- Rx MONITORING) 1 each PRN DAILY PRN 04/02/19 00:45 04/04/19 00:44 Iohexol (Omnipaque 300 Mg/ml) 75 ml 1X ONCE 04/02/19 00:45 04/02/19 00:46 04/02/19 00:42 75 ML Morphine Sulfate (Morphine Sulfate) 4 mg PRN Q15MIN PRN 04/01/19 23:45 04/02/19 23:44 04/02/19 00:07 4 MG Ondansetron HCl (Zofran) 4 mg 1X ONCE 04/01/19 23:45 04/01/19 23:46 DC 04/02/19 00:05 4 MG Sodium Chloride 1,000 ml @ 500 mls/hr Q2H 04/01/19 23:45 04/02/19 01:44 04/02/19 00:08 500 MLS/HR Allergies Allergies Allergies Coded Allergies Type Severity Reaction Last Updated Verified No Known Drug Allergies 06/14/18 No Physical Exam Physical Exam Constitutional: Well developed, well nourished, no acute distress, non-toxic appearance. [] HENT: Normocephalic, atraumatic Cardiovascular: Tachycardia with regular rhythm Lungs & Thorax: Bilateral rhonchi Abdomen: Moderate diffuse abdominal tenderness around the umbilicus Extremities: No tenderness, no cyanosis, no clubbing, ROM intact Current Patient Data Vital Signs Vital Signs Date Time Temp Pulse Resp B/P (MAP) Pulse Ox O2 Delivery O2 Flow Rate FiO2 04/02/19 00:07 22 99 Nasal Cannula 3.0 04/01/19 22:57 97.4 137 142/54 (83) 97.4 Lab Values Laboratory Tests Test 04/01/19 23:18 White Blood Count 7.8 x10^3/uL (4.0-11.0) Red Blood Count 4.72 x10^6/uL (4.30-5.70) Hemoglobin 14.2 g/dL (13.0-17.5) Hematocrit 42.1 % (39.0-53.0) Mean Corpuscular Volume 89 fL (79-100) Mean Corpuscular Hemoglobin 30 pg (25-35) Mean Corpuscular Hemoglobin Concent 34 g/dL (31-37) Red Cell Distribution Width 14.6 % (11.5-14.5) H Platelet Count 253 x10^3/uL (140-400) Neutrophils (%) (Auto) 82 % (31-73) H Lymphocytes (%) (Auto) 10 % (24-48) L Monocytes (%) (Auto) 7 % (0-9) Eosinophils (%) (Auto) 1 % (0-3) Basophils (%) (Auto) 0 % (0-3) Neutrophils # (Auto) 6.4 x10^3/uL (1.8-7.7) Lymphocytes # (Auto) 0.8 x10^3/uL (1.0-4.8) L Monocytes # (Auto) 0.6 x10^3/uL (0.0-1.1) Eosinophils # (Auto) 0.1 x10^3/uL (0.0-0.7) Basophils # (Auto) 0.0 x10^3/uL (0.0-0.2) Prothrombin Time 12.7 SEC (11.7-14.0) Prothrombin Time INR 1.0 (0.8-1.1) Sodium Level 138 mmol/L (136-145) Potassium Level 4.8 mmol/L (3.5-5.1) Chloride Level 99 mmol/L (98-107) Carbon Dioxide Level 33 mmol/L (21-32) H Anion Gap 6 (6-14) Blood Urea Nitrogen 17 mg/dL (8-26) Creatinine 0.9 mg/dL (0.7-1.3) Estimated GFR (Cockcroft-Gault) 79.8 BUN/Creatinine Ratio 19 (6-20) Glucose Level 125 mg/dL (70-99) H Calcium Level 9.4 mg/dL (8.5-10.1) Total Bilirubin 1.1 mg/dL (0.2-1.0) H Aspartate Amino Transferase (AST) 37 U/L (15-37) Alanine Aminotransferase (ALT) 25 U/L (16-63) Alkaline Phosphatase 129 U/L (46-116) H Total Protein 8.0 g/dL (6.4-8.2) Albumin 3.7 g/dL (3.4-5.0) Albumin/Globulin Ratio 0.9 (1.0-1.7) L Lipase 43 U/L (73-393) L Laboratory Tests 04/01/19 23:18 Laboratory Tests 04/01/19 23:18 EKG EKG EKG interpretation HR: 149 Sinus tachycardia Regular rhythm left axis deviation Nonspecific ST changes Radiology/Procedures Radiology/Procedures Ordered KUB KUB had a suspicious for small bowel obstruction Ordered CT scan of the abdomen and pelvis with IV contrast Course & Med Decision Making Course & Med Decision Making Pertinent Labs and Imaging studies reviewed. (See chart for details) Ordered labs, IV fluids 500 mL, IV morphine, IV Zofran, KUB, EKG EKG shows that patient has sinus tachycardia. KUB shows findings suspicious for small bowel obstruction Ordered CT abdomen and pelvis with IV contrast Dragon Disclaimer Dragon Disclaimer This electronic medical record was generated, in whole or in part, using a voice recognition dictation system. Departure Departure Referrals: YAMILEX EVERETT MD (PCP) JULIO HAYS DO Apr 02, 2019 00:49
--- NOTE | 2019-04-02 01:03 | RAD ---
PQRS Compliance statement: One or more of the following individualized dose reduction techniques were utilized for this examination: 1. Automated exposure control. 2. Adjustment of the mA and/or kV according to patient size. 3. Use of iterative reconstruction technique. Indication:Obstruction. TECHNIQUE: CT abdomen and pelvis with IV contrast with multiplanar reformats. COMPARISON: 11/27/2018 FINDINGS: Heart is normal in size. No pericardial effusion. Moderate left pleural effusion with consolidation of the adjacent lung parenchyma. Right lung is clear. Liver, spleen, pancreas, adrenals within normal limits. Status post cholecystectomy. No nephrolithiasis or hydronephrosis. Moderate diffuse atherosclerotic plaque in the abdominal aorta and bilateral iliac arteries. No free pelvic fluid or ascites. The prostate and seminal vesicles show no large mass. Normal appendix. Diffusely dilated small bowel loops are seen with air-fluid levels. No pneumoperitoneum or pneumatosis intestinalis. Urinary bladder demonstrates no radiopaque stones. No enlarged retroperitoneal or pelvic adenopathy. No suspicious bony lesion. IMPRESSION: 1. Findings of small bowel obstruction. 2. Small to moderate left pleural effusion with adjacent consolidation of the left lung base which may be from atelectasis or pneumonia. Electronically signed by: Marek Cristina DO (04/02/2019 1:00 AM) [facility]
[2019-04-02] MEDS ORDERED: fentaNYL PF VIAL 100 MCG/2 ML VIAL IVP PRN (05:30)
[2019-04-02] MEDS ORDERED: ONDANSETRON PF 4 MG/2 ML VIAL. IVP PRN (05:30)
[2019-04-02] MEDS ORDERED: DIGOXIN IV 500 MCG/2 ML AMPUL. IV ONE ×3 (05:30→10:00)
[2019-04-02] MEDS ORDERED: ONDANSETRON PF 4 MG/2 ML VIAL. IV PRN (06:00)
[2019-04-02] MEDS ORDERED: MORPHINE SULFATE 4 MG/ML VIAL. IV PRN ×2 (06:00→08:15)
--- NOTE | 2019-04-02 06:15 | NUR ---
Pt arrived to unit @0416 per cart pt ambulated to restroom from cart. Pt assisted to bed with standby assist pt slightly unsteady pt oriented to surroundings. tele monitor applied pt in afib rvr assessment completed vss obtained and stable poc explained to pt call light placed in reach,bed alarm set. Will resume care and continue to monitor pt.Call placed to Dr. Finn for further admissions orders.
--- NOTE | 2019-04-02 06:45 | EKG ---
[facility] [address] [place] [address] Test Date: 2019-04-01 Test Time: 23:22:52 Pat Name: BERTHA CROWE Department: Room: 202 1 Gender: M Line Cleaner: : 1930 Requested By: BARRY MCKENZIE Order Number: [id number] Reading MD: Dilan Gil MD Measurements Intervals [place] Rate: 148 P: 64 WV: 92 QRS: -23 QRSD: 86 T: -39 QT: 292 QTc: 463 Interpretive Statements SVT NON-SPECIFIC ST/T CHANGES Electronically Signed On 04-16-2019 8:47:42 APPAREL MANAGER by Dilan Gil MD
--- NOTE | 2019-04-02 08:14 | PDOC1 ---
H & P H&P HISTORY OF PRESENT ILLNESS: An 89-year-old white male with known left mainstem bronchus, squamous cell cancer, who has completed radiation therapy and is on hospice for this. He presented to the emergency room for nausea and abdominal pain. He has had recurrent small-bowel obstruction. The last admission was in November, which resolved with NG suction. Labs and imaging in the emergency room were remarkable for small bowel obstruction. He was also noted have significant tachycardia which was initially sinus tach per EKG done in the emergency room, though this has devolved to A. fib with RVR since that time. His previous small bowel obstructions have resolved with NG tube placement, however the patient has declined NG placement at this time. PAST MEDICAL HISTORY: Well documented per the old records. MEDICATIONS: Reviewed and reconciled ALLERGIES: No allergies. PAST SURGICAL HISTORY: Not sure of prior surgeries that would lead to adhesions. SOCIAL HISTORY: He is , lives with family. Hospice is in place in the home setting. Former smoker, nondrinker. FAMILY HISTORY: Unremarkable. REVIEW OF SYSTEMS: No other known problems. OBJECTIVE: Alert, oriented to self, location Decreased breath sounds throughout the left chest. No wheezing or tachypnea is noted. Irregular rate, tachycardia. No murmur. Mildly distended. Bowel sounds are diminished. No guarding or masses are felt. Decreased pedal pulses and skin turgor. No joint or skin lesions. Muscle mass is generally decreased consistent with stage 4 lung cancer. Neuro exam is nonfocal Calm, cooperative ASSESSMENT: Recurrent small-bowel obstruction, likely mechanical in nature. 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
[2019-04-02] MEDS ORDERED: IPRATRPIUM/ALBUTEROL 0.5/2.5MG 3 ML NEBU. NEB PRN (08:15)
[2019-04-02] MEDS ORDERED: dilTIAZem IV PUSH 25 MG/5 ML VIAL IVP ONE (08:15)
--- NOTE | 2019-04-02 08:34 | PDOC2 ---
CARDIAC CONSULT DATE OF CONSULT Date of Consult DATE: 04/02/19 TIME: 08:26 REASON FOR CONSULT Reason for Consult: AFIB RVR REFERRING PHYSICIAN Referring Physician: Aakash SOURCE Source: Chart review, Patient HISTORY OF PRESENT ILLNESS HISTORY OF PRESENT ILLNESS This is a pleasant 89 yo male admitted for noted abdominal pain and vomiting. He does hx of recurring SBO. He is a poor historian and family member is not available for further details. He was on hospice and it is unclear if his hospice was reveoked to allow this admission or just recently beenn discontinued. No notable chest pain or SOA but upon admission he was noted with atrial flutter with RVR and also with CHF. PAST MEDICAL HISTORY Cardiovascular: AFIB, CHF, HTN, Valve insufficiency Pulmonary: COPD (severe), Pneumonia, Other (hemoptysis) CENTRAL NERVOUS SYSTEM: Dementia GI: Diverticulosis, Other (SBO) Heme/Onc: Anemia NOS, Cancer (lung) Musculoskeletal: Osteoarthritis PAST SURGICAL HISTORY Past Surgical History: No pertinent history FAMILY HISTORY Family History: Coronary Artery Disease (mother) SOCIAL HISTORY Smoke: Quit ALCOHOL: none Drugs: None Lives: with Family CURRENT MEDICATIONS CURRENT MEDICATIONS Current Medications Medications (Trade) Dose Ordered Sig/Alessandra Route PRN Reason Start Time Stop Time Status Last Admin Dose Admin Morphine Sulfate (Morphine Sulfate) 4 mg PRN Q15MIN PRN IV/SQ PAIN GREATER THAN 3/10 04/01/19 23:45 04/02/19 06:00 DC 04/02/19 00:07 Sodium Chloride 1,000 ml @ 500 mls/hr Q2H IV 04/01/19 23:45 04/02/19 04:16 DC 04/02/19 00:08 Ondansetron HCl (Zofran) 4 mg 1X ONCE IV 04/01/19 23:45 04/01/19 23:46 DC 04/02/19 00:05 Iohexol (Omnipaque 300 Mg/ml) 75 ml 1X ONCE IV 04/02/19 00:45 04/02/19 00:46 DC 04/02/19 00:42 Digoxin (Lanoxin) 125 mcg 1X ONCE IV 04/02/19 05:30 04/02/19 05:31 DC 04/02/19 05:35 Digoxin (Lanoxin) 250 mcg 1X ONCE IV 04/02/19 06:35 04/02/19 06:36 DC 04/02/19 06:48 ALLERGIES ALLERGIES: Coded Allergies: No Known Drug Allergies (Unverified , 06/14/18) ROS Review of System Unreliable, poor historian PHYSICAL EXAM General: Alert, Cooperative, No acute distress HEENT: Atraumatic, Mucous membr. moist/pink Lungs: Other (diffuse wheeze, basilar crackles) Heart: Other (Atrial flutter with RVR) Abdomen: Soft Extremities: No cyanosis, Other (3-4+ bilateral LE pitting edema) Skin: No breakdown, No significant lesion Neuro: Normal speech, Sensation intact Psych/Mental Status: Other (flat affect; confuse) MUSCULOSKELETAL: Osteoarthritic changes both hands VITALS/I&O VITALS/I&O: Vital Signs Date Time Temp Pulse Resp B/P (MAP) Pulse Ox O2 Delivery O2 Flow Rate FiO2 04/02/19 07:49 Nasal Cannula 3.0 04/02/19 06:50 98.1 142 18 103/67 (79) 100 98.1 I & O 04/01/19 04/01/19 04/02/19 15:00 23:00 07:00 Intake Total 1000 ml Balance 1000 ml LABS Lab: Laboratory Tests Test 04/01/19 23:18 White Blood Count 7.8 x10^3/uL (4.0-11.0) Red Blood Count 4.72 x10^6/uL (4.30-5.70) Hemoglobin 14.2 g/dL (13.0-17.5) Hematocrit 42.1 % (39.0-53.0) Mean Corpuscular Volume 89 fL (79-100) Mean Corpuscular Hemoglobin 30 pg (25-35) Mean Corpuscular Hemoglobin Concent 34 g/dL (31-37) Red Cell Distribution Width 14.6 % (11.5-14.5) H Platelet Count 253 x10^3/uL (140-400) Neutrophils (%) (Auto) 82 % (31-73) H Lymphocytes (%) (Auto) 10 % (24-48) L Monocytes (%) (Auto) 7 % (0-9) Eosinophils (%) (Auto) 1 % (0-3) Basophils (%) (Auto) 0 % (0-3) Neutrophils # (Auto) 6.4 x10^3/uL (1.8-7.7) Lymphocytes # (Auto) 0.8 x10^3/uL (1.0-4.8) L Monocytes # (Auto) 0.6 x10^3/uL (0.0-1.1) Eosinophils # (Auto) 0.1 x10^3/uL (0.0-0.7) Basophils # (Auto) 0.0 x10^3/uL (0.0-0.2) Prothrombin Time 12.7 SEC (11.7-14.0) Prothrombin Time INR 1.0 (0.8-1.1) Sodium Level 138 mmol/L (136-145) Potassium Level 4.8 mmol/L (3.5-5.1) Chloride Level 99 mmol/L (98-107) Carbon Dioxide Level 33 mmol/L (21-32) H Anion Gap 6 (6-14) Blood Urea Nitrogen 17 mg/dL (8-26) Creatinine 0.9 mg/dL (0.7-1.3) Estimated GFR (Cockcroft-Gault) 79.8 BUN/Creatinine Ratio 19 (6-20) Glucose Level 125 mg/dL (70-99) H Calcium Level 9.4 mg/dL (8.5-10.1) Total Bilirubin 1.1 mg/dL (0.2-1.0) H Aspartate Amino Transferase (AST) 37 U/L (15-37) Alanine Aminotransferase (ALT) 25 U/L (16-63) Alkaline Phosphatase 129 U/L (46-116) H Total Protein 8.0 g/dL (6.4-8.2) Albumin 3.7 g/dL (3.4-5.0) Albumin/Globulin Ratio 0.9 (1.0-1.7) L Lipase 43 U/L (73-393) L Laboratory Tests 04/01/19 23:18 Laboratory Tests 04/01/19 23:18 ECHOCARDIOGRAM ECHOCARDIOGRAM <Conclusion> The left ventricle is normal size. The left ventricular systolic function is normal and the ejection fraction is within normal range. The Ejection Fraction is 55-60%. There is no significant aortic valvular stenosis. Doppler and Color Flow revealed trace aortic regurgitation. Doppler and Color-flow revealed mild mitral regurgitation. Doppler and Color Flow revealed mild tricuspid regurgitation. DATE: 07/04/17 1115 ASSESSMENT/PLAN ASSESSMENT/PLAN 1. Recurring SBO 2. Atrial flutter with RVR: paroxysmal by hx 3. Acute on chronic diastolic CHF 4. Hx of bronchogenic CA with hemoptysis 5. Severe COPD 6. HTN: BP marginal 7. Dementia: ?revoked hospice (will need clarification) 8. Subclinical hypothyroidism Recommendations 1. Treat with Dig and cardizem while NPO. Maintenance IVF 2. TTE, TSH 3. Lasix and PRN 4. No OAC from before due to hemoptysis. Rectal ASA for stroke prevention TIFFANY MCKINNEY MONITOR TECHNICIAN Apr 02, 2019 08:34
[2019-04-02] MEDS: IV NORMAL SALINE 1000ML BAG 1,000 ML IV SCH (08:50)
[2019-04-02] MEDS: ALBUTEROL SULFATE 2.5 MG/3 ML NEBU. NEB SCH ×4 (09:00→19:46)
[2019-04-02] MEDS ORDERED: NON FORMULARY ITEM (Fluticasone/Salmeterol (Advair 500-50 Diskus) 1 PUFF) IH SCH (09:00)
[2019-04-02] MEDS: dilTIAZem INJ 125 MG in IV DEXTROSE 5% 100ML 100 ML IV PRN (09:13)
[2019-04-02] MEDS ORDERED: FUROSEMIDE 40 MG/4 ML VIAL. IVP ONE (09:30)
--- NOTE | 2019-04-02 09:46 | PDOC2 ---
JOVAN DUMONT SILK SCREEN PAINTER 04/02/19 0946: CONSULT Date of Consult Date of Consult DATE: 04/02/19 TIME: 09:43 Reason for Consult Reason for Consult: sbo Referring Physician Referring Physician: er Identification/Chief Complaint Chief Complaint abd pain Source Source: Chart review, Patient History of Present Illness Reason for Visit: Poor historian, some abd pain, nausea. Denies emesis. Does report some diarrhea last few days Nursing reports a loose stool overnight No current nausea, and very mild umbilical pain Similar symptoms in November, resolved quickly Past Medical History Cardiovascular: AFIB, CHF, HTN, Valve insufficiency Pulmonary: COPD (severe), Pneumonia, Other (hemoptysis) CENTRAL NERVOUS SYSTEM: Dementia GI: Diverticulosis, Other (SBO) Heme/Onc: Anemia NOS, Cancer (lung) Musculoskeletal: Osteoarthritis Past Surgical History Past Surgical History: No pertinent history Family History Family History: Coronary Artery Disease (mother) Social History Quit ALCOHOL: none Drugs: None Lives: with Family Current Medications Current Medications Current Medications Morphine Sulfate (Morphine Sulfate) 4 mg PRN Q15MIN PRN IV/SQ PAIN GREATER THAN 3/10 Last administered on 04/02/19at 00:07; Start 04/01/19 at 23:45; Stop 04/02/19 at 06:00; Status DC Sodium Chloride 1,000 ml @ 500 mls/hr Q2H IV Last administered on 04/02/19at 00:08; Start 04/01/19 at 23:45; Stop 04/02/19 at 04:16; Status DC Ondansetron HCl (Zofran) 4 mg 1X ONCE IV Last administered on 04/02/19at 00:05; Start 04/01/19 at 23:45; Stop 04/01/19 at 23:46; Status DC Iohexol (Omnipaque 300 Mg/ml) 75 ml 1X ONCE IV Last administered on 04/02/19at 00:42; Start 04/02/19 at 00:45; Stop 04/02/19 at 00:46; Status DC Info (CONTRAST GIVEN -- Rx MONITORING) 1 each PRN DAILY PRN MC SEE COMMENTS; Start 04/02/19 at 00:45; Stop 04/04/19 at 00:44 Digoxin (Lanoxin) 125 mcg 1X ONCE IV Last administered on 04/02/19at 05:35; Start 04/02/19 at 05:30; Stop 04/02/19 at 05:31; Status DC Fentanyl Citrate (Fentanyl 2ml Vial) 50 mcg PRN Q2HR PRN IVP PAIN; Start 04/02/19 at 05:30 Ondansetron HCl (Zofran) 4 mg PRN Q4HRS PRN IVP NAUSEA/VOMITING; Start 04/02/19 at 05:30 Ondansetron HCl (Zofran) 4 mg PRN Q8HRS PRN IV NAUSEA/VOMITING; Start 04/02/19 at 06:00; Stop 04/03/19 at 05:59 Morphine Sulfate (Morphine Sulfate) 4 mg PRN Q2HR PRN IV PAIN; Start 04/02/19 at 06:00; Stop 04/03/19 at 05:59 Digoxin (Lanoxin) 250 mcg 1X ONCE IV Last administered on 04/02/19at 06:48; Start 04/02/19 at 06:35; Stop 04/02/19 at 06:36; Status DC Albuterol/ Ipratropium (Duoneb) 3 ml PRN Q6HRS PRN NEB SHORTNESS OF BREATH; Start 04/02/19 at 08:15 Non-Formulary Medication (Fluticasone/ Salmeterol (Advair 500-50 Diskus)) 1 puff BID IH ; Start 04/02/19 at 09:00; Status UNV Morphine Sulfate (Morphine Sulfate) 4 mg PRN Q2HR PRN IV PAIN; Start 04/02/19 at 08:15 Budesonide (Pulmicort) 0.5 mg RTBID NEB ; Start 04/02/19 at 20:00 Albuterol Sulfate (Ventolin Neb Soln) 2.5 mg RTQID NEB Last administered on 04/02/19at 09:00; Start 04/02/19 at 08:00 Sodium Chloride 1,000 ml @ 60 mls/hr [id number] IV Last administered on 04/02/19at 08:50; Start 04/02/19 at 08:15 Diltiazem HCl (Cardizem Iv Push) 5 mg 1X ONCE IVP Last administered on 04/02/19at 09:08; Start 04/02/19 at 08:15; Stop 04/02/19 at 08:16; Status DC Diltiazem HCl 125 mg/Dextrose 125 ml @ 5 mls/hr CONT PRN IV SEE I/O RECORD Last administered on 04/02/19at 09:13; Start 04/02/19 at 08:15 Furosemide (Lasix) 40 mg 1X ONCE IVP ; Start 04/02/19 at 09:30; Stop 04/02/19 at 09:31; Status DC Active Scripts Active Levaquin (Levofloxacin) 750 Mg Tablet 1 Tab PO DAILY Reported Lasix (Furosemide) 20 Mg Tablet 20 Mg PO 1/2TAB PO DAILY Proair Hfa Inhaler (Albuterol Sulfate) 8.5 Gm Hfa.aer.ad 1 Puff INH PRN Q6HRS PRN Tramadol Hcl 50 Mg Tablet 50 Mg PO Q6HRS PRN Potassium Chloride 20 Meq Tablet.er 20 Meq PO QODAY Diltiazem 24HR Cd (Diltiazem Hcl) 120 Mg Cap.er.24h 1 Cap PO DAILY Duoneb 0.5-3(2.5) Mg/3 Ml (Albuterol/Ipratropium) 3 Ml Ampul.neb 3 Ml NEB PRN Q6HRS PRN Advair 500-50 Diskus (Fluticasone/Salmeterol) 1 Each Disk.w.dev 1 Puff IH BID Allergies Allergies: Coded Allergies: No Known Drug Allergies (Unverified , 06/14/18) ROS General: No: Chills, Other (fevers ) PSYCHOLOGICAL ROS: No: Anxiety, Depression Eyes: No Blurry vision, No Double vision HEENT: No: Heacaches, Sore Throat Hematological and Lymphatic: No: Bleeding Problems, Blood Clots Respiratory: No: Cough, Shortness of breath Cardiovascular: No Chest Pain, No Palpitations Gastrointestinal: Yes Other (see hpi) Genitourinary: No Dysuria, No Retention Musculoskeletal: No Joint Pain, No Muscle Pain Neurological: No Impaired Coord/balance, No Numbness/Tingling Physical Exam General: Alert, Oriented X3, Cooperative, No acute distress HEENT: PERRLA, Mucous membr. moist/pink Lungs: Clear to auscultation, Normal air movement Heart: Other (afib) Abdomen: Soft, Other (ND, minimal ttp umbilical ) Extremities: No clubbing, No cyanosis Skin: No rashes, No breakdown Neuro: Normal gait, Normal speech Psych/Mental Status: Mental status NL, Mood NL MUSCULOSKELETAL: No deformity, No swelling Vitals VITALS Vital Signs Date Time Temp Pulse Resp B/P (MAP) Pulse Ox O2 Delivery O2 Flow Rate FiO2 04/02/19 09:08 143 104/63 04/02/19 09:04 96 Nasal Cannula 3.0 04/02/19 06:50 98.1 18 98.1 Labs Labs Laboratory Tests Test 04/01/19 23:18 White Blood Count 7.8 x10^3/uL (4.0-11.0) Red Blood Count 4.72 x10^6/uL (4.30-5.70) Hemoglobin 14.2 g/dL (13.0-17.5) Hematocrit 42.1 % (39.0-53.0) Mean Corpuscular Volume 89 fL (79-100) Mean Corpuscular Hemoglobin 30 pg (25-35) Mean Corpuscular Hemoglobin Concent 34 g/dL (31-37) Red Cell Distribution Width 14.6 % (11.5-14.5) Platelet Count 253 x10^3/uL (140-400) Neutrophils (%) (Auto) 82 % (31-73) Lymphocytes (%) (Auto) 10 % (24-48) Monocytes (%) (Auto) 7 % (0-9) Eosinophils (%) (Auto) 1 % (0-3) Basophils (%) (Auto) 0 % (0-3) Neutrophils # (Auto) 6.4 x10^3/uL (1.8-7.7) Lymphocytes # (Auto) 0.8 x10^3/uL (1.0-4.8) Monocytes # (Auto) 0.6 x10^3/uL (0.0-1.1) Eosinophils # (Auto) 0.1 x10^3/uL (0.0-0.7) Basophils # (Auto) 0.0 x10^3/uL (0.0-0.2) Prothrombin Time 12.7 SEC (11.7-14.0) Prothromb Time International Ratio 1.0 (0.8-1.1) Sodium Level 138 mmol/L (136-145) Potassium Level 4.8 mmol/L (3.5-5.1) Chloride Level 99 mmol/L (98-107) Carbon Dioxide Level 33 mmol/L (21-32) Anion Gap 6 (6-14) Blood Urea Nitrogen 17 mg/dL (8-26) Creatinine 0.9 mg/dL (0.7-1.3) Estimated GFR (Cockcroft-Gault) 79.8 BUN/Creatinine Ratio 19 (6-20) Glucose Level 125 mg/dL (70-99) Calcium Level 9.4 mg/dL (8.5-10.1) Total Bilirubin 1.1 mg/dL (0.2-1.0) Aspartate Amino Transf (AST/SGOT) 37 U/L (15-37) Alanine Aminotransferase (ALT/SGPT) 25 U/L (16-63) Alkaline Phosphatase 129 U/L (46-116) Total Protein 8.0 g/dL (6.4-8.2) Albumin 3.7 g/dL (3.4-5.0) Albumin/Globulin Ratio 0.9 (1.0-1.7) Lipase 43 U/L (73-393) Thyroid Stimulating Hormone (TSH) 8.672 uIU/mL (0.358-3.74) Laboratory Tests Test 04/01/19 23:18 White Blood Count 7.8 x10^3/uL (4.0-11.0) Red Blood Count 4.72 x10^6/uL (4.30-5.70) Hemoglobin 14.2 g/dL (13.0-17.5) Hematocrit 42.1 % (39.0-53.0) Mean Corpuscular Volume 89 fL (79-100) Mean Corpuscular Hemoglobin 30 pg (25-35) Mean Corpuscular Hemoglobin Concent 34 g/dL (31-37) Red Cell Distribution Width 14.6 % (11.5-14.5) Platelet Count 253 x10^3/uL (140-400) Neutrophils (%) (Auto) 82 % (31-73) Lymphocytes (%) (Auto) 10 % (24-48) Monocytes (%) (Auto) 7 % (0-9) Eosinophils (%) (Auto) 1 % (0-3) Basophils (%) (Auto) 0 % (0-3) Neutrophils # (Auto) 6.4 x10^3/uL (1.8-7.7) Lymphocytes # (Auto) 0.8 x10^3/uL (1.0-4.8) Monocytes # (Auto) 0.6 x10^3/uL (0.0-1.1) Eosinophils # (Auto) 0.1 x10^3/uL (0.0-0.7) Basophils # (Auto) 0.0 x10^3/uL (0.0-0.2) Prothrombin Time 12.7 SEC (11.7-14.0) Prothromb Time International Ratio 1.0 (0.8-1.1) Sodium Level 138 mmol/L (136-145) Potassium Level 4.8 mmol/L (3.5-5.1) Chloride Level 99 mmol/L (98-107) Carbon Dioxide Level 33 mmol/L (21-32) Anion Gap 6 (6-14) Blood Urea Nitrogen 17 mg/dL (8-26) Creatinine 0.9 mg/dL (0.7-1.3) Estimated GFR (Cockcroft-Gault) 79.8 BUN/Creatinine Ratio 19 (6-20) Glucose Level 125 mg/dL (70-99) Calcium Level 9.4 mg/dL (8.5-10.1) Total Bilirubin 1.1 mg/dL (0.2-1.0) Aspartate Amino Transf (AST/SGOT) 37 U/L (15-37) Alanine Aminotransferase (ALT/SGPT) 25 U/L (16-63) Alkaline Phosphatase 129 U/L (46-116) Total Protein 8.0 g/dL (6.4-8.2) Albumin 3.7 g/dL (3.4-5.0) Albumin/Globulin Ratio 0.9 (1.0-1.7) Lipase 43 U/L (73-393) Thyroid Stimulating Hormone (TSH) 8.672 uIU/mL (0.358-3.74) Assessment/Plan Assessment/Plan sbo vs ileus, diarrhea, seems more c/w ileus gastroenteritis bowel rest, check plain films in AM CLAYTON BERGERON MD 04/02/19 1000: CONSULT Assessment/Plan Assessment/Plan Pt seen and examined. Agree with Ms. Dumont's note Pt without c/o currently, poor historian abd soft, ND, NTTP agree with bowel rest will check films in AM Thanks for consult! JOVAN DUMONT SILK SCREEN PAINTER Apr 02, 2019 09:46 CLAYTON BERGERON MD Apr 02, 2019 10:00
[2019-04-02 09:51] LABS: CALCIUM 9.7 mg/dL (8.5-10.1); CREATININE 0.9 mg/dL (0.7-1.3); GFR 79.8; POTASSIUM 4.7 mmol/L (3.5-5.1)
--- NOTE | 2019-04-02 11:11 | CARD ---
MR#: [id number] Date of Study: 04/02/2019 Ordering Physician: TIFFANY MCKINNEY, Referring Physician: TIFFANY MCKINNEY Tech: Deja Mckeon KRISTINA APPROVED REPORT EXAM: Two-dimensional and M-mode echocardiogram with Doppler and color Doppler. Other Information Quality : Technically LimitedHR: 140bpm Rhythm : TachycardiaTechnically limited study due to heart rate. INDICATION Atrial Fibrillation 2D DIMENSIONS RVDd2.7 (2.9-3.5cm)Left Atrium(2D)4.4 (1.6-4.0cm) IVSd0.9 (0.7-1.1cm)Aortic Root(2D)2.8 (2.0-3.7cm) LVDd5.6 (3.9-5.9cm)LVOT Diameter2.0 (1.8-2.4cm) PWd1.2 (0.7-1.1cm)LVDs4.0 (2.5-4.0cm) FS (%) 28.9 %SV83.4 ml LVEF(%)50.0 (>50%) Aortic Valve AoV Peak Irving.135.6cm/sAoV VTI22.4cm AO Peak GR.7.4mmHgLVOT VTI 7.46cm AO Mean GR.4mmHgAVA (VTI)1.50cm2 AI P 1/2 Kfhm123lw Mitral Valve MV E Pqwtdoko71.2cm/sMV E Peak Gr.77mmHg MV DECEL [id number] A Qyyiilnk12.6cm/s E/A Ratio2.2MV A Gpfqoztw26oi Tricuspid Valve TR P. Xfkafbad608sy/sRAP QJYKSJWV1ioGa TR Peak Gr.90vsHzKQAM33ojWt LEFT VENTRICLE The left ventricle is normal size. There is normal left ventricular wall thickness. Left ventricle sy stolic function is low normal. The Ejection Fraction is 45-50%. The basal to mid LV is moderately hyp okinetic. Transmitral Doppler flow pattern is abnormal. RIGHT VENTRICLE The right ventricle is normal size. There is normal right ventricular wall thickness. The right ventr icular systolic function is normal. ATRIA The left atrium is mildly dilated. The right atrium is mildly dilated. The interatrial septum is inta ct with no evidence for an atrial septal defect or patent foramen ovale as noted on 2-D or Doppler im aging. AORTIC VALVE The aortic valve is mildly calcified. The aortic valve is trileaflet. Doppler and Color Flow revealed no significant aortic regurgitation. There is no significant aortic valvular stenosis. MITRAL VALVE The mitral valve is mildly thickened. There is no evidence of mitral valve prolapse. There is no mitr al valve stenosis. Doppler and Color-flow revealed mild mitral regurgitation. TRICUSPID VALVE The tricuspid valve is normal in structure and function. Doppler and Color Flow revealed mild tricusp id regurgitation. The PA pressure was estimated at 35 mmHg. There is no tricuspid valve prolapse or v egetation. There is no tricuspid valve stenosis. PULMONIC VALVE The pulmonic valve is not well visualized. GREAT VESSELS The aortic root is normal in size. The ascending aorta is normal in size. The IVC is normal in size a nd collapses >50% with inspiration. PERICARDIAL EFFUSION There is no evidence of significant pericardial effusion. Critical Notification Critical Value: No <Conclusion> Left ventricle systolic function is low normal. The Ejection Fraction is 45-50%. The basal to mid LV is moderately hypokinetic. Doppler and Color-flow revealed mild mitral regurgitation. Signed by : Dilan Gil, Electronically Approved : 04/02/2019 11:11:13
[2019-04-02] MEDS ORDERED: GUAI600T47 PO (11:14)
--- NOTE | 2019-04-02 12:53 | NUR ---
RN NOTE Patients BP was 87/52 and rechecked 82/48 card TOMATO GRADER notified gtt stopped continue with plan of care Addendum: 04/02/19 at 1309 by LILO DURÁN RN rechecked BP 98/51 after gtt stopped
--- NOTE | 2019-04-02 13:10 | NUR ---
SS following for discharge planning. SS reviewed pt chart. Pt is from home and is currently requiring oxygen. Pt is current on services with [facility], ; fax [phone]. SS will continue to follow for discharge planning.
[2019-04-02] MEDS: ENOXAPARIN 40 MG/0.4 ML SYRINGE. SQ SCH (13:57)
[2019-04-02] MEDS: ASPIRIN RECTAL 300 MG SUPP. PR SCH (13:57)
[2019-04-02] MEDS: BUDESONIDE 0.5 MG/2 ML NEBU. NEB SCH (19:46)
--- NOTE | 2019-04-02 19:50 | NUR ---
Pt in bed assessment completed vss poc explained to and daughter at bedside. Pt reoriented to surroundings bed alarm in place call light in reach pt denies pain at this time will resume aare.
[2019-04-03] VITALS (9 sets, daily range): BP systolic 94–129; BP diastolic 51–73
[2019-04-03] MEDS: IV NORMAL SALINE 1000ML BAG 1,000 ML IV SCH ×2 (02:28→23:03)
[2019-04-03] MEDS: dilTIAZem INJ 125 MG in IV DEXTROSE 5% 100ML 100 ML IV PRN (02:28)
[2019-04-03] MEDS: BUDESONIDE 0.5 MG/2 ML NEBU. NEB SCH ×2 (07:38→19:28)
[2019-04-03] MEDS: ALBUTEROL SULFATE 2.5 MG/3 ML NEBU. NEB SCH ×4 (07:38→19:28)
--- NOTE | 2019-04-03 08:09 | PDOC ---
SUBJECTIVE Subjective Says he is doing "just fine", denies pain, unsure if he has passed gas. OBJECTIVE Objective Reviewed. Vital Signs Vital Signs Date Time Temp Pulse Resp B/P (MAP) Pulse Ox O2 Delivery O2 Flow Rate FiO2 04/03/19 07:33 97 Nasal Cannula 2.0 04/03/19 04:38 70 103/57 (72) 04/03/19 03:48 67 101/57 (72) 04/03/19 02:30 97.8 75 18 97/53 (68) 99 Nasal Cannula 2.0 97.8 04/03/19 01:49 73 94/52 (66) 04/02/19 23:00 16 99/54 (69) 96 Nasal Cannula 2.0 04/02/19 22:38 71 107/55 (72) 04/02/19 22:10 97.8 74 2 95/51 (66) 97 Nasal Cannula 97.8 04/02/19 21:44 75 94/55 (68) 04/02/19 20:36 67 108/54 (72) 04/02/19 19:46 97 Nasal Cannula 2.0 04/02/19 19:46 97 Nasal Cannula 2.0 04/02/19 19:40 Nasal Cannula 3.0 04/02/19 19:36 97.4 151 18 113/64 (80) 98 Nasal Cannula 2.0 97.4 04/02/19 16:32 98 Nasal Cannula 2.0 04/02/19 15:13 98.2 101 20 99/48 (65) 98 Nasal Cannula 2.0 98.2 04/02/19 13:08 75 98/51 (67) 04/02/19 12:49 74 82/48 (59) 04/02/19 12:48 74 87/52 (64) 04/02/19 11:56 98 Nasal Cannula 3.0 04/02/19 11:48 74 92/55 (67) 04/02/19 11:14 97.8 91 20 99/51 (67) 95 Nasal Cannula 2.0 97.8 04/02/19 10:17 146 95/56 04/02/19 09:48 144 95/56 (69) 04/02/19 09:08 143 104/63 04/02/19 09:04 96 Nasal Cannula 3.0 10/23/19 08:45 142 104/63 (77) I & O Intake and Output 04/03/19 07:00 Intake Total 120 ml Balance 120 ml Intake Oral 120 ml # Voids 6 # Bowel Movements 3 PHYSICAL EXAM Physical Exam Alert, oriented to self, location Decreased breath sounds throughout, coarse breath sounds b/l. No wheezing or tachypnea is noted. Irregularly irregular rate. No murmur. Not distended. Bowel sounds are diminished. Tender to palpation in b/l lower quadrants. No guarding or masses are felt. Decreased pedal pulses and skin turgor. No joint or skin lesions. Muscle mass is generally decreased consistent with stage 4 lung cancer. 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
[2019-04-03] MEDS: ASPIRIN RECTAL 300 MG SUPP. PR SCH (09:21)
--- NOTE | 2019-04-03 10:35 | RAD ---
ACUTE ABDOMEN SERIES History: Small bowel obstruction Technique: Supine and upright views of the abdomen. Comparison: CT April 02, 2019 Findings: Small moderate left pleural effusion with adjacent atelectasis. Patchy right basilar opacity, may represent atelectasis. Multiple dilated air-filled loops of bowel within the mid abdomen, decreased compared to prior. Air and stool scattered throughout the colon. Surgical clips right upper quadrant. Contrast noted within the urinary bladder from prior CT. Postop changes anterior abdominal wall mesh repair. Vascular calcifications. No pneumoperitoneum. Impression: 1. Decreased distention of small bowel. Recommend continued follow-up. 2. Small moderate left pleural effusion with adjacent atelectasis. Electronically signed by: Luis Armando Moreno DO (04/03/2019 10:32 AM) [id number]
--- NOTE | 2019-04-03 11:52 | PDOC ---
CARDIO Progress Notes Date and Time Date of Service 04/03/2019 Time of Evaluation 1140 Subjective Subjective: No Chest Pain, No shortness of breath, No Palpitations Vitals Vitals Vital Signs Date Time Temp Pulse Resp B/P (MAP) Pulse Ox O2 Delivery O2 Flow Rate FiO2 04/03/19 11:39 97 Nasal Cannula 2.0 04/03/19 07:00 96.1 74 18 110/57 (74) 96.1 Weight Weight [ ] Input and Output Intake and Output Intake and Output 04/03/19 07:00 Intake Total 120 ml Balance 120 ml Intake Oral 120 ml # Voids 6 # Bowel Movements 3 Physical Exam HEENT: Neck Supple W Full Motion Chest: Symmetric LUNGS: Other (upper rhonchi diffuse wheeze) Heart: irregularly irregular (AFIB RVR) Abdomen: Soft N/T Extremities: No Calf Tenderness, Other (3+ bilateral LE pitting edema) Neurology: alert, follow commands, confused (periods) Assessment Assessment 1. Recurring SBO 2. Atrial flutter/AFIB with RVR: paroxysmal by hx. refractory RVR currently with nebulizer 3. Acute on chronic diastolic CHF: SOA better 4. Hx of bronchogenic CA with hemoptysis 5. Severe COPD 6. HTN: BP marginal 7. Dementia: ?revoked hospice (will need clarification) 8. Subclinical hypothyroidism 9. Cardiomyopathy: EF 45-50% possibly tachy mediated Recommendations 1. Treat with Dig IV. Cardizem drip held due to low BP will start on IR PO cardizem when PO allowed. Unable to use BB due to wheeze 2. Lasix and PRN 3. No OAC from before due to hemoptysis. Rectal ASA for stroke prevention TIFFANY MCKINNEY SUPERVISOR PHOTOENGRAVING Apr 03, 2019 11:52
--- NOTE | 2019-04-03 12:00 | PDOC ---
SURGICAL PROGRESS NOTE Subjective denies pain no nausea small stool yesterday Vital Signs Vital Signs Date Time Temp Pulse Resp B/P (MAP) Pulse Ox O2 Delivery O2 Flow Rate FiO2 04/03/19 11:39 97 Nasal Cannula 2.0 04/03/19 07:00 96.1 74 18 110/57 (74) 96.1 I&O Intake and Output 04/03/19 07:00 Intake Total 120 ml Balance 120 ml Intake Oral 120 ml # Voids 6 # Bowel Movements 3 General: Alert, Oriented X3, Cooperative, No acute distress Abdomen: Soft, No tenderness Labs Laboratory Tests Test 04/01/19 23:18 04/02/19 03:10 White Blood Count 7.8 x10^3/uL (4.0-11.0) Red Blood Count 4.72 x10^6/uL (4.30-5.70) Hemoglobin 14.2 g/dL (13.0-17.5) Hematocrit 42.1 % (39.0-53.0) Mean Corpuscular Volume 89 fL (79-100) Mean Corpuscular Hemoglobin 30 pg (25-35) Mean Corpuscular Hemoglobin Concent 34 g/dL (31-37) Red Cell Distribution Width 14.6 % (11.5-14.5) Platelet Count 253 x10^3/uL (140-400) Neutrophils (%) (Auto) 82 % (31-73) Lymphocytes (%) (Auto) 10 % (24-48) Monocytes (%) (Auto) 7 % (0-9) Eosinophils (%) (Auto) 1 % (0-3) Basophils (%) (Auto) 0 % (0-3) Neutrophils # (Auto) 6.4 x10^3/uL (1.8-7.7) Lymphocytes # (Auto) 0.8 x10^3/uL (1.0-4.8) Monocytes # (Auto) 0.6 x10^3/uL (0.0-1.1) Eosinophils # (Auto) 0.1 x10^3/uL (0.0-0.7) Basophils # (Auto) 0.0 x10^3/uL (0.0-0.2) Prothrombin Time 12.7 SEC (11.7-14.0) Prothromb Time International Ratio 1.0 (0.8-1.1) Sodium Level 138 mmol/L (136-145) 138 mmol/L (136-145) Potassium Level 4.8 mmol/L (3.5-5.1) 4.7 mmol/L (3.5-5.1) Chloride Level 99 mmol/L (98-107) 97 mmol/L (98-107) Carbon Dioxide Level 33 mmol/L (21-32) 29 mmol/L (21-32) Anion Gap 6 (6-14) 12 (6-14) Blood Urea Nitrogen 17 mg/dL (8-26) 17 mg/dL (8-26) Creatinine 0.9 mg/dL (0.7-1.3) 0.9 mg/dL (0.7-1.3) Estimated GFR (Cockcroft-Gault) 79.8 79.8 BUN/Creatinine Ratio 19 (6-20) Glucose Level 125 mg/dL (70-99) 101 mg/dL (70-99) Calcium Level 9.4 mg/dL (8.5-10.1) 9.7 mg/dL (8.5-10.1) Total Bilirubin 1.1 mg/dL (0.2-1.0) Aspartate Amino Transf (AST/SGOT) 37 U/L (15-37) Alanine Aminotransferase (ALT/SGPT) 25 U/L (16-63) Alkaline Phosphatase 129 U/L (46-116) Total Protein 8.0 g/dL (6.4-8.2) Albumin 3.7 g/dL (3.4-5.0) Albumin/Globulin Ratio 0.9 (1.0-1.7) Lipase 43 U/L (73-393) Thyroid Stimulating Hormone (TSH) 8.672 uIU/mL (0.358-3.74) Lactic Acid Level 0.8 mmol/L (0.4-2.0) Magnesium Level 2.3 mg/dL (1.8-2.4) EU-Wdo-I-Type Natriuretic Peptide 1046 pg/mL (0-449) Problem List xrays improved ok to try clears JOVAN DUMONT APRN Apr 03, 2019 12:00
[2019-04-03] MEDS ORDERED: FUROSEMIDE 20 MG/2 ML VIAL. IVP ONE (12:30)
[2019-04-03] MEDS ORDERED: DIGOXIN IV 500 MCG/2 ML AMPUL. IV ONE (12:30)
[2019-04-03] MEDS: dilTIAZem HCL 30 MG TABLET PO SCH ×2 (13:30→21:30)
[2019-04-03] MEDS: ENOXAPARIN 40 MG/0.4 ML SYRINGE. SQ SCH (14:24)
[2019-04-04 02:14] VITALS: BP 124/59
[2019-04-04] MEDS: dilTIAZem HCL 30 MG TABLET PO SCH (05:34)
[2019-04-04 07:20] VITALS: BP 154/69
[2019-04-04] MEDS: BUDESONIDE 0.5 MG/2 ML NEBU. NEB SCH (07:21)
[2019-04-04] MEDS: ALBUTEROL SULFATE 2.5 MG/3 ML NEBU. NEB SCH ×2 (07:21→11:23)
--- NOTE | 2019-04-04 08:25 | PDOC3 ---
Discharge Summary Date of Admission: Apr 01, 2019 Date of Discharge: Apr 04, 2019 Admitting Diagnosis comment: Ileus vs SBO FINAL DIAGNOSIS As above Brief Hospital Course Mr. Aldana is an 89-year-old white male with known left mainstem bronchus, squamous cell cancer, who has completed radiation therapy and is on hospice for this. He presented to the emergency room for nausea and abdominal pain. He has had recurrent small-bowel obstruction. The last admission was in November, which resolved with NG suction. Labs and imaging in the emergency room were remarkable for small bowel obstruction. He was also noted have significant tachycardia which was initially sinus tach per EKG done in the emergency room, though this devolved to A. fib with RVR which subsequently was improved with IV digoxin and PO meds once able to take PO. Pt declined NG tube placement. He slowly improved and on day prior to discharge was able to tolerate clear liquids and was passing gas and had a small bowel movement. No medication changes have been made. He will follow-up as needed in clinic. CONDITION AT DISCHARGE: Improved Discharge Medications Active Reported Mucinex (Guaifenesin) 600 Mg Tablet.er 2 Tab PO BID 10 Days Lasix (Furosemide) 20 Mg Tablet 10 Mg PO 1/2TAB PO DAILY Proair Hfa Inhaler (Albuterol Sulfate) 8.5 Gm Hfa.aer.ad 1 Puff INH PRN Q6HRS PRN Potassium Chloride 20 Meq Tablet.er 20 Meq PO QODAY Diltiazem 24HR Cd (Diltiazem Hcl) 120 Mg Cap.er.24h 1 Cap PO DAILY Duoneb 0.5-3(2.5) Mg/3 Ml (Albuterol/Ipratropium) 3 Ml Ampul.neb 3 Ml NEB PRN Q6HRS PRN Advair 500-50 Diskus (Fluticasone/Salmeterol) 1 Each Disk.w.dev 1 Puff IH BID Vital Signs Vital Signs Date Time Temp Pulse Resp B/P (MAP) Pulse Ox O2 Delivery O2 Flow Rate FiO2 04/04/19 07:22 98 Nasal Cannula 2.0 04/04/19 07:20 97.2 85 18 154/69 (97) 97.2 Allergies Allergies Coded Allergies Type Severity Reaction Last Updated Verified No Known Drug Allergies 06/14/18 No Disposition/Orders: D/C to Home YAMILEX EVERETT MD Apr 04, 2019 08:25
[2019-04-04] MEDS: IV NORMAL SALINE 1000ML BAG 1,000 ML IV SCH (08:53)
[2019-04-04] MEDS ORDERED: ASPIRIN ENTERIC COATED 81 MG TABLET.DR. PO SCH (09:00)
--- NOTE | 2019-04-04 09:45 | PDOC ---
JOVAN DUMONT APRN 04/04/19 0945: SURGICAL PROGRESS NOTE Subjective tolerating clears no n/v had stool overnight Vital Signs Vital Signs Date Time Temp Pulse Resp B/P (MAP) Pulse Ox O2 Delivery O2 Flow Rate FiO2 04/04/19 08:00 Nasal Cannula 2.0 04/04/19 07:22 98 04/04/19 07:20 97.2 85 18 154/69 (97) 97.2 I&O Intake and Output 04/04/19 06:59 Intake Total 540 ml Balance 540 ml Intake Oral 300 ml IV Total 240 ml # Voids 2 # Bowel Movements 2 General: Alert, Oriented X3, Cooperative, No acute distress Abdomen: Soft, No tenderness Assessment/Plan improved can advance diet as tolerated CLAYTON BERGERON MD 04/04/19 1236: SURGICAL PROGRESS NOTE Assessment/Plan Pt seen and examined. Agree with Tristan Dumont's note Pt feels well, denies complaints abd soft, ND, NTTP OK to adat and work towards d/c home. JOVAN DUMONT APRN Apr 04, 2019 09:45 CLAYTON BERGERON MD Apr 04, 2019 12:36
--- NOTE | 2019-04-04 10:34 | PDOC ---
CARDIO Progress Notes Date and Time Date of Service 04/04/19 Time of Evaluation 1015 Subjective Subjective: No Chest Pain, No shortness of breath, No Palpitations, Other (dressed and ready to go home..) Vitals Vitals Vital Signs Date Time Temp Pulse Resp B/P (MAP) Pulse Ox O2 Delivery O2 Flow Rate FiO2 04/04/19 08:00 Nasal Cannula 2.0 04/04/19 07:22 98 04/04/19 07:20 97.2 85 18 154/69 (97) 97.2 Weight Weight [ ] Input and Output Intake and Output Intake and Output 04/04/19 07:00 Intake Total 540 ml Balance 540 ml Intake Oral 300 ml IV Total 240 ml # Voids 2 # Bowel Movements 2 Physical Exam HEENT: Neck Supple W Full Motion Chest: Symmetric LUNGS: Other (faint diffuse wheeze) Heart: irregularly irregular (AFIB RVR) Abdomen: Soft N/T Extremities: No Calf Tenderness, Other (2+ bilateral LE pitting edema) Neurology: alert, follow commands, confused (periods) Assessment Assessment 1. Recurring SBO 2. Atrial flutter/AFIB with RVR: telemetry has been discontinue 3. Acute on chronic diastolic CHF: SOA better 4. Hx of bronchogenic CA with hemoptysis 5. Severe COPD 6. HTN: BP marginal 7. Dementia 8. Subclinical hypothyroidism 9. Cardiomyopathy: EF 45-50% Recommendations Conver Cardizem to CD 120mg No OAC from before due to hemoptysis. ASA for stroke prevention May discharge home with Hospice from a CV standpoint ELSA TOWNSEND APRN Apr 04, 2019 10:34
--- NOTE | 2019-04-04 14:00 | NUR ---
SS following up with discharge planning. Discharge orders received for return to home with hospice. SS phoned faxed referral and discharge orders to [facility], ; fax [phone]. Pt will return to home with hospice today. Pt's daughter contacted RN and reported that she will transport pt to home after 1400 today.
--- NOTE | 2019-04-04 15:24 | RAD ---
EXAM: CT OF THE CHEST WITHOUT CONTRAST. HISTORY: Lung cancer status post treatment. TECHNIQUE: Computed tomography of the chest was performed without intravenous contrast. COMPARISON: 09/12/2018. FINDINGS: Images of the upper abdomen reveal no acute abnormality. Bone windows reveal no suspicious lesions. 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 There is a moderate focal levocurvature. A lipoma along the left anterior chest wall superiorly measures 7.1 x 3.8 cm transaxially. A soft tissue mass within the left hilum encases the left bronchus and significantly narrows the lumen. This has progressed since the prior study. In the subaortic region it measures 4.7 x 3.3 cm. There is a moderate left pleural effusion. This has increased since the prior study. There is a trace right pleural effusion. There is no pericardial effusion. The heart is not enlarged. There are atherosclerotic calcifications of the coronary arteries. An uncalcified nodule in the right lower lobe measures 5 mm on image 39 is stable. Centrilobular emphysema appears moderate. There is atelectasis in the left lower lobe. A few calcified granulomas are noted. IMPRESSION: 1. Progression of a left hilar soft tissue mass, severely narrowing the left mainstem bronchus. 2. A moderate left pleural effusion is increased. There is a trace right pleural effusion. *One or more of the following individualized dose reduction techniques were utilized for this examination: 1. Automated exposure control. 2. Adjustment of the mA and/or kV according to patient size. 3. Use of iterative reconstruction technique. Electronically signed by: Thiago Wills MD (04/04/2019 3:21 PM) [facility]
--- NOTE | 2019-04-04 17:14 | NUR ---
Discharge Note: BERTHA CROWE Discharge instructions and discharge home medications reviewed with Family Member and a copy given. All questions have been answered and understanding verbalized.
== END 2019-04-04 15:35 | disposition hospice, home (50) | DRG 388 ==
LOC: ER 22:17 → 2 NORTH 04-02 01:15 → 2 SOUTH 04-02 19:25
PROVIDERS: ADMIT Family Medicine; ATTEND Family Medicine
DX: K56.609 Unspecified intestinal obstruction, unspecified as to partial versus complete obstruction (principal); I50.33 Acute on chronic diastolic (congestive) heart failure; I42.9 Cardiomyopathy, unspecified; I48.92 Unspecified atrial flutter; J96.11 Chronic respiratory failure with hypoxia; K52.9 Noninfective gastroenteritis and colitis, unspecified; E03.9 Hypothyroidism, unspecified; F02.80 Dementia in other diseases classified elsewhere, unspecified severity, without behavioral disturbance, psychotic disturbance, mood disturbance, and anxiety; G30.9 Alzheimer's disease, unspecified; I11.0 Hypertensive heart disease with heart failure; K57.90 Diverticulosis of intestine, part unspecified, without perforation or abscess without bleeding; J44.9 Chronic obstructive pulmonary disease, unspecified; Z82.49 Family history of ischemic heart disease and other diseases of the circulatory system; Z85.118 Personal history of other malignant neoplasm of bronchus and lung; Z87.891 Personal history of nicotine dependence; Z92.3 Personal history of irradiation; M19.90 Unspecified osteoarthritis, unspecified site; Z66 Do not resuscitate; I48.0 Paroxysmal atrial fibrillation
CPT/HCPCS: 36415; 71250; 74018; 74022; 74177; 80048; 80053; 83605; 83690; 83735; 83880; 84443; 85025; 85610; 93005; 93306; 94640; 94760; J1160; J1650; J1940; J2270; J2405; J3490; J7030; J7613; J7620; J7626; Q9967; 99285-25; G0378

== ENCOUNTER 2019-04-14 05:32 | Inpatient (IN) | payer MEDICARE, OTHER ==
[~2019-04-14] VITALS: Ht 167.6 cm; Wt 73.5 kg
[2019-04-14] MEDS ORDERED: IV NORMAL SALINE 1000ML BAG 1,000 ML IV SCH (06:15)
--- NOTE | 2019-04-14 06:24 | PHYS DOC ---
Past Medical History Past Medical History: A-Fib, Cancer, CHF, Constipation, COPD, Pneumonia, Other Additional Past Medical Histor: squamous cell left lung CA,BOWEL OBSTRUCTION Past Surgical History: No Surgical History Additional Past Surgical Histo: denies Alcohol Use: None Drug Use: None Adult General Chief Complaint Chief Complaint: ABDOMINAL PAIN HPI HPI Patient is an 89-year-old male who has a history of lung cancer, who presents to the emergency department for evaluation of some generalized upper abdominal pain which began last night. He has not had any nausea or vomiting and had a bowel movement as recently as this morning. He was recently hospitalized here for a small bowel obstruction, which was treated conservatively. He denies any fevers or chills, chest pain, or shortness of breath. The patient's daughter also reports that the patient's left leg has become more swollen than normal (both legs are somewhat chronically swollen) over the past 24 hours. The patient denies any leg pain. The patient has lung cancer, and had been on hospice, but is getting ready to undergo a round of palliative chemotherapy, and will then go back on hospice according to his daughter. The patient's CODE STATUS is DNR. The patient does have a history of atrial fibrillation. He had been on anticoagulation, but with his lung cancer, a while back he began experiencing hemoptysis and was taken off all anticoagulants. Review of Systems Review of Systems Constitutional: Denies fever or chills [] Eyes: Denies change in visual acuity, redness, or eye pain [] HENT: Denies nasal congestion or sore throat [] Respiratory: Denies cough or shortness of breath [] Cardiovascular: The patient denies any shortness of breath, chest pain, p alpitations, or orthopnea [] GI: No additional information not addressed in HPI [] : Denies dysuria or hematuria [] Musculoskeletal: Denies back pain or joint pain [] Integument: Denies rash or skin lesions [] Neurologic: Denies headache, focal weakness or sensory changes [] Endocrine: Denies polyuria or polydipsia [] All other systems were reviewed and found to be within normal limits, except as documented in this note. Current Medications Current Medications Current Medications Medications (Trade) Dose Ordered Sig/Alessandra Start Time Stop Time Status Last Admin Dose Admin Info (CONTRAST GIVEN -- Rx MONITORING) 1 each PRN DAILY PRN 04/14/19 07:00 04/16/19 06:59 Iohexol (Omnipaque 240 Mg/ml) 50 ml 1X ONCE 04/14/19 07:00 04/14/19 07:01 DC 04/14/19 07:00 50 ML Iohexol (Omnipaque 300 Mg/ml) 75 ml 1X ONCE 04/14/19 07:00 04/14/19 07:01 DC 04/14/19 07:00 75 ML Ondansetron HCl (Zofran) 4 mg 1X ONCE 04/14/19 07:45 04/14/19 07:46 DC 04/14/19 08:01 4 MG Sodium Chloride 1,000 ml @ 100 mls/hr Q10H 04/14/19 06:15 04/14/19 16:14 04/14/19 06:29 100 MLS/HR Allergies Allergies Allergies Coded Allergies Type Severity Reaction Last Updated Verified No Known Drug Allergies 06/14/18 No Physical Exam Physical Exam PHYSICAL EXAM: CONSTITUTIONAL: Well developed, well nourished HEAD: normocephalic, atraumatic EENT: PERRL, EOMI. Conjunctivae normal color, sclerae non-icteric; moist mucous membranes. NECK: Supple, non-tender; no meningismus. LUNGS: There are some rhonchi and diminished breath sounds in the left base, otherwise Lungs CTA, breathing even and unlabored. Normal air movement. HEART: Irregularly irregular rhythm, no murmur CHEST: No deformity; non-tender ABDOMEN: The abdomen is soft, there is mild diffuse tenderness of the abdomen, without focal tenderness, rebound, or guarding, high-pitched, somewhat gurgling bowel sounds are present, which would be consistent with a bowel obstruction, no masses or bruits. EXTREM: Normal ROM; no deformity, no calf tenderness. Normal pulses palpable in all extremities. There is 2+ bilateral pitting pedal edema. SKIN: No rash; no diaphoresis NEURO: Alert; normal speech and cognition; CN's grossly intact; strength grossly intact without focal deficit. BACK: No CVA TTP. Current Patient Data Vital Signs Vital Signs Date Time Temp Pulse Resp B/P (MAP) Pulse Ox O2 Delivery O2 Flow Rate FiO2 04/14/19 08:03 94 18 124/68 (86) 100 Nasal Cannula 2.0 11/4/19 06:30 96.4 96.4 Lab Values Laboratory Tests Test 04/14/19 05:40 04/14/19 06:12 Urine Collection Type Unknown Urine Color Yellow Urine Clarity Clear Urine pH 6.0 Urine Specific [place] 1.025 Urine Protein Negative mg/dL (NEG-TRACE) Urine Glucose (UA) Negative mg/dL (NEG) Urine Ketones (Stick) Negative mg/dL (NEG) Urine Blood Negative (NEG) Urine Nitrite Negative (NEG) Urine Bilirubin Negative (NEG) Urine Urobilinogen Dipstick 0.2 mg/dL (0.2 mg/dL) Urine Leukocyte Esterase Negative (NEG) Urine RBC 0 /HPF (0-2) Urine WBC 0 /HPF (0-4) Urine Squamous Epithelial Cells Occ /LPF Urine Bacteria 0 /HPF (0-FEW) Urine Mucus Slight /LPF White Blood Count 7.1 x10^3/uL (4.0-11.0) Red Blood Count 4.24 x10^6/uL (4.30-5.70) L Hemoglobin 12.6 g/dL (13.0-17.5) L Hematocrit 38.0 % (39.0-53.0) L Mean Corpuscular Volume 90 fL (79-100) Mean Corpuscular Hemoglobin 30 pg (25-35) Mean Corpuscular Hemoglobin Concent 33 g/dL (31-37) Red Cell Distribution Width 14.6 % (11.5-14.5) H Platelet Count 225 x10^3/uL (140-400) Neutrophils (%) (Auto) 77 % (31-73) H Lymphocytes (%) (Auto) 12 % (24-48) L Monocytes (%) (Auto) 9 % (0-9) Eosinophils (%) (Auto) 2 % (0-3) Basophils (%) (Auto) 0 % (0-3) Neutrophils # (Auto) 5.4 x10^3/uL (1.8-7.7) Lymphocytes # (Auto) 0.9 x10^3/uL (1.0-4.8) L Monocytes # (Auto) 0.7 x10^3/uL (0.0-1.1) Eosinophils # (Auto) 0.1 x10^3/uL (0.0-0.7) Basophils # (Auto) 0.0 x10^3/uL (0.0-0.2) Prothrombin Time 12.5 SEC (11.7-14.0) Prothrombin Time INR 1.0 (0.8-1.1) Sodium Level 138 mmol/L (136-145) Potassium Level 4.2 mmol/L (3.5-5.1) Chloride Level 100 mmol/L (98-107) Carbon Dioxide Level 36 mmol/L (21-32) H Anion Gap 2 (6-14) L Blood Urea Nitrogen 13 mg/dL (8-26) Creatinine 0.8 mg/dL (0.7-1.3) Estimated GFR (Cockcroft-Gault) 91.4 BUN/Creatinine Ratio 16 (6-20) Glucose Level 125 mg/dL (70-99) H Lactic Acid Level 0.9 mmol/L (0.4-2.0) Calcium Level 9.0 mg/dL (8.5-10.1) Total Bilirubin 0.8 mg/dL (0.2-1.0) Aspartate Amino Transferase (AST) 21 U/L (15-37) Alanine Aminotransferase (ALT) 16 U/L (16-63) Alkaline Phosphatase 104 U/L (46-116) Troponin I Quantitative < 0.017 ng/mL (0.000-0.055) KJ-Sej-A-Type Natriuretic Peptide 381 pg/mL (0-449) Total Protein 6.8 g/dL (6.4-8.2) Albumin 3.0 g/dL (3.4-5.0) L Albumin/Globulin Ratio 0.8 (1.0-1.7) L Lipase 47 U/L (73-393) L Laboratory Tests 04/14/19 06:12 Laboratory Tests 04/14/19 06:12 EKG EKG []atrial fibrillation at 96 BPM, left axis deviation, normal intervals, there are no acute ischemic ST/T changes. Radiology/Procedures Radiology/Procedures PROCEDURE: VENOUS LOWER EXTREMITY LEFT Left lower extremity venous doppler ultrasound History: Left leg edema Comparison: None Findings: Multiple grayscale, color, and duplex spectral analysis sonographic images were acquired of the left lower extremity veins to evaluate for the presence of DVT. There is normal phasicity. Normal compression, color-flow, and augmentation is demonstrated from the left common femoral to the popliteal veins. There is normal color flow of the proximal greater saphenous and profunda femoris veins. There is normal color flow of segments of the calf veins. There is a hypoechoic collection of the left popliteal fossa about 1.3 x 2.8 x 1.4 cm. Impression: 1. There is no evidence of deep venous thrombosis from the left common femoral to the popliteal veins. 2. There is a left popliteal fossa fluid collection.[] PROCEDURE: CT ABD PELV W/ORAL&IV CONTRAST CT scan of the abdomen and pelvis with contrast 04/14/2019 CLINICAL HISTORY: Abdominal pain. Recent small bowel obstruction. TECHNIQUE: After the oral and intravenous administration of contrast, contiguous, 5 mm axial sections were obtained through the abdomen and pelvis. 75 cc of Omnipaque 300 were administered intravenously during this examination. One or more of the following individualized dose reduction techniques were utilized for this study: 1. Automated exposure control. 2. Adjustment of the mA and/or kV according to patient size. 3. Use of iterative reconstruction technique. FINDINGS: Comparison study is dated 04/02/2019. Images through the lung bases demonstrate a small to moderate-sized left pleural effusion. Left lower lobe atelectasis and/or infiltrate is seen. These findings have improved slightly. Extensive coronary artery calcifications are noted. The liver, spleen, pancreas, adrenal glands and kidneys are within normal limits. Atherosclerotic calcification of the abdominal aorta and its branches is noted. The abdominal aorta tapers normally. Surgical clips are seen within the gallbladder fossa consistent with a cholecystectomy. No free fluid or free air is seen within the abdomen. Postsurgical changes are seen involving the anterior abdominal wall consistent with a ventral hernia repair. Dilated fluid and air-filled small bowel loops are seen throughout the abdomen. The colon is decompressed. These findings are consistent with a small bowel obstruction. The transition point appears to be in the region of the mid ileum within the right lower quadrant of the abdomen. Images through the pelvis demonstrate the urinary bladder to be slightly contracted. Calcifications are seen within the pelvis consistent with phleboliths. No free fluid is seen. Multiple diverticula are seen involving the sigmoid colon. No inflammatory changes are seen in the adjacent fat. Calcifications are seen within the pelvis consistent with phleboliths. No free fluid is seen. The osseous structures are unchanged. IMPRESSION: Findings consistent with a small bowel obstruction. Course & Med Decision Making Course & Med Decision Making Pertinent Labs and Imaging studies reviewed. (See chart for details) [] 8:30 AM: The patient's condition remains stable. I discussed the case with Dr. Jeronimo, covering for the patient's PCP, who will admit the patient for further evaluation and treatment. He recommended holding off placing an NG tube at this time. Dragon Disclaimer Dragon Disclaimer This electronic medical record was generated, in whole or in part, using a voice recognition dictation system. Departure Departure Impression: Primary Impression: Small bowel obstruction Additional Impression: Lung cancer Disposition: ADMITTED INPATIENT Admitting Physician: Padilla Jeronimo Condition: STABLE Referrals: YAMILEX EVERETT MD (PCP) Problem Qualifiers PADILLA NOVOA MD Apr 14, 2019 06:24
[2019-04-14 06:31] LABS: BASO % 0 % (0-3); EOS # 0.1 x10^3/uL (0.0-0.7); EOS % 2 % (0-3); HEMOGLOBIN 12.6 g/dL (13.0-17.5); LYMPH # 0.9 x10^3/uL (1.0-4.8); LYMPH % 12 % (24-48); MEAN CORPUSCULAR HEMOGLOBIN 30 pg (25-35); MEAN CORPUSCULAR HGB CONC 33 g/dL (31-37); MEAN CORPUSCULAR VOLUME 90 fL (79-100); MONO # 0.7 x10^3/uL (0.0-1.1); MONO % 9 % (0-9); NEUT # 5.4 x10^3/uL (1.8-7.7); NEUT % 77 % (31-73); PLATELET COUNT 225 x10^3/uL (140-400); RED BLOOD COUNT 4.24 x10^6/uL (4.30-5.70); RED CELL DISTRIBUTION WIDTH 14.6 % (11.5-14.5); WHITE BLOOD COUNT 7.1 x10^3/uL (4.0-11.0)
[2019-04-14 06:32] LABS: BILIRUBIN,URINE NEGATIVE (NEG); CLARITY,URINE CLEAR; COLOR,URINE YELLOW; NITRITE,URINE NEGATIVE (NEG); PROTEIN,URINE NEGATIVE (NEG-TRACE); UROBILINOGEN,URINE 0.2 mg/dL (0.2 mg/dL)
[2019-04-14 06:37] LABS: CREATININE 0.8 mg/dL (0.7-1.3); GFR 91.4; POTASSIUM 4.2 mmol/L (3.5-5.1)
[2019-04-14 06:43] LABS: PROTHROMBIN TIME PATIENT 12.5 SEC (11.7-14.0)
[2019-04-14 06:46] LABS: BACTERIA,URINE 0 /HPF (0-FEW); RBC,URINE 0 /HPF (0-2); SQUAMOUS EPITHELIAL CELL,UR OCC /LPF; WBC,URINE 0 /HPF (0-4)
[2019-04-14 06:52] LABS: ALBUMIN/GLOBULIN RATIO 0.8 (1.0-1.7); TOTAL BILIRUBIN 0.8 mg/dL (0.2-1.0); TOTAL PROTEIN 6.8 g/dL (6.4-8.2)
[2019-04-14] MEDS ORDERED: IOHEXOL 300 MG/ML 100ML VIAL. IV ONE (07:00)
[2019-04-14] MEDS ORDERED: CONTRAST GIVEN. MC PRN (07:00)
[2019-04-14] MEDS ORDERED: IOHEXOL 240 MG/ML 50ML VIAL. PO ONE (07:00)
--- NOTE | 2019-04-14 07:26 | RAD ---
Left lower extremity venous doppler ultrasound History: Left leg edema Comparison: None Findings: Multiple grayscale, color, and duplex spectral analysis sonographic images were acquired of the left lower extremity veins to evaluate for the presence of DVT. There is normal phasicity. Normal compression, color-flow, and augmentation is demonstrated from the left common femoral to the popliteal veins. There is normal color flow of the proximal greater saphenous and profunda femoris veins. There is normal color flow of segments of the calf veins. There is a hypoechoic collection of the left popliteal fossa about 1.3 x 2.8 x 1.4 cm. Impression: 1. There is no evidence of deep venous thrombosis from the left common femoral to the popliteal veins. 2. There is a left popliteal fossa fluid collection. Electronically signed by: Benitez Chaney MD (04/14/2019 7:23 AM) [id number]
[2019-04-14] MEDS ORDERED: ONDANSETRON PF 4 MG/2 ML VIAL. IV ONE (07:45)
--- NOTE | 2019-04-14 08:25 | RAD ---
CT scan of the abdomen and pelvis with contrast 04/14/2019 CLINICAL HISTORY: Abdominal pain. Recent small bowel obstruction. TECHNIQUE: After the oral and intravenous administration of contrast, contiguous, 5 mm axial sections were obtained through the abdomen and pelvis. 75 cc of Omnipaque 300 were administered intravenously during this examination. One or more of the following individualized dose reduction techniques were utilized for this study: 1. Automated exposure control. 2. Adjustment of the mA and/or kV according to patient size. 3. Use of iterative reconstruction technique. FINDINGS: Comparison study is dated 04/02/2019. Images through the lung bases demonstrate a small to moderate-sized left pleural effusion. Left lower lobe atelectasis and/or infiltrate is seen. These findings have improved slightly. Extensive coronary artery calcifications are noted. The liver, spleen, pancreas, adrenal glands and kidneys are within normal limits. Atherosclerotic calcification of the abdominal aorta and its branches is noted. The abdominal aorta tapers normally. Surgical clips are seen within the gallbladder fossa consistent with a cholecystectomy. No free fluid or free air is seen within the abdomen. Postsurgical changes are seen involving the anterior abdominal wall consistent with a ventral hernia repair. Dilated fluid and air-filled small bowel loops are seen throughout the abdomen. The colon is decompressed. These findings are consistent with a small bowel obstruction. The transition point appears to be in the region of the mid ileum within the right lower quadrant of the abdomen. Images through the pelvis demonstrate the urinary bladder to be slightly contracted. Calcifications are seen within the pelvis consistent with phleboliths. No free fluid is seen. Multiple diverticula are seen involving the sigmoid colon. No inflammatory changes are seen in the adjacent fat. Calcifications are seen within the pelvis consistent with phleboliths. No free fluid is seen. The osseous structures are unchanged. IMPRESSION: Findings consistent with a small bowel obstruction. Electronically signed by: Greg Desai MD (04/14/2019 8:23 AM) [id number]
--- NOTE | 2019-04-14 08:55 | EKG ---
[facility] [address] [place] [address] Test Date: 2019-04-14 Test Time: 06:55:31 Pat Name: BERTHA CROWE Department: Room: Gender: M [employer]: : 1930 Requested By: DINO NOVOA Order Number: [id number] Reading MD: Measurements Intervals [place] Rate: 96 P: NM: QRS: -21 QRSD: 86 T: 52 QT: 372 QTc: 476 Interpretive Statements ATRIAL FIBRILLATION LEFTWARD AXIS LOW LIMB LEAD VOLTAGE NON SPECIFIC T ABNORMALITY PROLONGED QT ABNORMAL ECG No previous ECG available for comparison
[2019-04-14 10:30] VITALS: BP 107/64
--- NOTE | 2019-04-14 11:35 | NUR ---
PATIENT ARRIVED ON THE UNIT PER CART, ASSISTED OVER TO THE BED PER 2 PERSON ASSIST, PATIENT ALERT AND VERBALLY RESPONSIVE, DENIES PAIN/DISCOMFORT, SOB NOTICED WITH MINIMAL EXERTION, 02 ON AT 2 LITERS PER NASAL CANNULA, WILL NOTIFY .
[2019-04-14 15:00] VITALS: BP 108/62
--- NOTE | 2019-04-14 15:28 | PDOC ---
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 Local progression and second course of radiation was planned to begin later this week. Admitted with 4th episode of SBO over the last year. Previous episodes managed conservatively. Now has minimal N and V. Modest abd pain. Able to sleep well since admit. PE conversant in no visible distress. Abd not distended, minimally tender with no rebound. 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 Retreatment to the left hilar region for increasing shortness of breath is still a consideration if he has resolution of his SBO. Will continue to follow for now. EVELYN ZURITA MD Apr 14, 2019 15:28
[2019-04-14] MEDS: IPRATRPIUM/ALBUTEROL 0.5/2.5MG 3 ML NEBU. NEB SCH ×2 (15:54→20:05)
[2019-04-14 19:00] VITALS: BP 111/56
[2019-04-14] MEDS: IV NORMAL SALINE 1000ML BAG 1,000 ML IV SCH (19:44)
[2019-04-14 23:00] VITALS: BP 93/43
[2019-04-15 03:00] VITALS: BP 88/34
[2019-04-15] MEDS: IV NORMAL SALINE 1000ML BAG 1,000 ML IV SCH (05:38)
[2019-04-15 07:11] VITALS: BP 104/68
[2019-04-15] MEDS: IPRATRPIUM/ALBUTEROL 0.5/2.5MG 3 ML NEBU. NEB SCH ×4 (07:37→20:11)
[2019-04-15] MEDS ORDERED: FLU VAX QS 2019-20 (36MOS+)/PF 0.5 ML SYRINGE. VAX IM ONE (08:30)
--- NOTE | 2019-04-15 08:44 | PDOC ---
Provider Note Provider Note [id number] DINO JON MD Apr 15, 2019 08:44
[2019-04-15] MEDS ORDERED: ALBUTEROL SULFATE 2.5 MG/3 ML NEBU. NEB PRN (08:45)
--- NOTE | 2019-04-15 09:32 | HP ---
ADMIT DATE: 04/15/2019 CHIEF COMPLAINT: Abdominal pain. HISTORY OF PRESENT ILLNESS: This is an 89-year-old white male with known carcinoma of the lung who has undergone radiation therapy, but recent CTs have showed some increase in the size. He has been admitted for at least 4 times now with small-bowel obstruction in the last about 1 week ago when he had transient small-bowel obstruction associated with some atrial fibrillation that resolved. He came back in with abdominal pain, swelling and nausea and CT scan confirmed evidence of the small-bowel obstruction. He is sleeping at this time, not able to provide history. PAST MEDICAL HISTORY: Well documented in the old record. ALLERGIES: No allergies are known. MEDICATIONS: Not too many meds. No anticoagulants because of risk greater than benefit. SOCIAL HISTORY: Lives with family. Nonsmoker, nondrinker. FAMILY HISTORY: Unremarkable. REVIEW OF SYSTEMS: No other complaints. OBJECTIVE: ENT: All within normal limits. NECK: No JVD, nodes or masses. LUNGS: Decreased breath sounds. No wheezing. CARDIOVASCULAR: Irregular rate consistent with mild sinus tachycardia. ABDOMEN: Mildly distended, hyperresonant, nontender. Bowel sounds are absent. No masses are felt. EXTREMITIES: No edema. No joint or skin lesions. Pedal pulses diminished. NEUROLOGIC: Physiologic and nonfocal. ASSESSMENT: 1. Recurrent small-bowel obstruction, likely mechanical in nature. 2. History of recurrent atrial fibrillation, currently feels to be in sinus rhythm. 3. Left upper lobe lung carcinoma status post radiation therapy, seems to be slowly progressive per CT scan and Dr. Ruby's note. PLAN: DNR status ordered. Comfort care measures. He has no NG tube and will continue IV fluids and GI rest for now. General Surgery will to consider whether laparotomy would be needed, be given the recurrent nature of this problem. DINO JON MD DR: DAMI/jovanny JOB#: [id number] / [id number]
--- NOTE | 2019-04-15 10:30 | PDOC2 ---
JOVAN DUMONT SALESPERSON PARTS 04/15/19 1030: CONSULT Date of Consult Date of Consult DATE: 04/15/19 TIME: 10:24 Reason for Consult Reason for Consult: sbo Referring Physician Referring Physician: ER Identification/Chief Complaint Chief Complaint abdominal pain Source Source: Chart review, Patient History of Present Illness Reason for Visit: Patient is a very poor historian. Admitted with abdominal pain, no nausea or emesis. Reports stools at home. One loose stool last night. Recent admit for similar--ct with obstruction, had stools and improved. Noted plans for palliative radiation Past Medical History Cardiovascular: AFIB, CHF, HTN, Valve insufficiency Pulmonary: COPD, Pneumonia, Other CENTRAL NERVOUS SYSTEM: Dementia GI: Diverticulosis, Other Heme/Onc: Anemia NOS, Cancer Musculoskeletal: Osteoarthritis Past Surgical History Past Surgical History: No pertinent history Family History Family History: Coronary Artery Disease Social History ALCOHOL: none Drugs: None Lives: with Family Current Problem List Problem List Problems Medical Problems: (1) Lung cancer Status: Acute (2) Small bowel obstruction Status: Acute (3) Squamous cell carcinoma Status: Acute Current Medications Current Medications Current Medications Sodium Chloride 1,000 ml @ 100 mls/hr Q10H IV Last administered on 04/14/19at 06:29; Start 04/14/19 at 06:15; Stop 04/14/19 at 16:14; Status DC Iohexol (Omnipaque 300 Mg/ml) 75 ml 1X ONCE IV Last administered on 04/14/19at 07:00; Start 04/14/19 at 07:00; Stop 04/14/19 at 07:01; Status DC Iohexol (Omnipaque 240 Mg/ml) 50 ml 1X ONCE PO Last administered on 04/14/19at 07:00; Start 04/14/19 at 07:00; Stop 04/14/19 at 07:01; Status DC Info (CONTRAST GIVEN -- Rx MONITORING) 1 each PRN DAILY PRN MC SEE COMMENTS; Start 04/14/19 at 07:00; Stop 04/16/19 at 06:59 Ondansetron HCl (Zofran) 4 mg 1X ONCE IV Last administered on 04/14/19at 08:01; Start 04/14/19 at 07:45; Stop 04/14/19 at 07:46; Status DC Albuterol/ Ipratropium (Duoneb) 3 ml RTQID NEB Last administered on 04/15/19at 07:37; Start 04/14/19 at 15:00 Sodium Chloride 1,000 ml @ 100 mls/hr Q10H IV Last administered on 04/15/19at 05:38; Start 04/14/19 at 19:45; Stop 04/15/19 at 08:35; Status DC Influenza Virus Vaccine Quadrival (Afluria Quad 2019-20 (3yr Up) Syringe) 0.5 ml ONCE ONCE VAX IM ; Start 04/15/19 at 08:30; Stop 04/15/19 at 08:31; Status DC Potassium Chloride/Dextrose/ Sod Cl 1,000 ml @ 100 mls/hr Q10H IV ; Start 04/15/19 at 09:00 Albuterol Sulfate (Ventolin Neb Soln) 2.5 mg PRN Q6HRS PRN NEB SHORTNESS OF BREATH; Start 04/15/19 at 08:45 Active Scripts Active Reported Mucinex (Guaifenesin) 600 Mg Tablet.er 2 Tab PO BID 10 Days Lasix (Furosemide) 20 Mg Tablet 10 Mg PO 1/2TAB PO DAILY Proair Hfa Inhaler (Albuterol Sulfate) 8.5 Gm Hfa.aer.ad 1 Puff INH PRN Q6HRS PRN Potassium Chloride 20 Meq Tablet.er 20 Meq PO QODAY Diltiazem 24HR Cd (Diltiazem Hcl) 120 Mg Cap.er.24h 1 Cap PO DAILY Duoneb 0.5-3(2.5) Mg/3 Ml (Albuterol/Ipratropium) 3 Ml Ampul.neb 3 Ml NEB PRN Q6HRS PRN Advair 500-50 Diskus (Fluticasone/Salmeterol) 1 Each Disk.w.dev 1 Puff IH BID Allergies Allergies: Coded Allergies: No Known Drug Allergies (Unverified , 06/14/18) ROS General: No: Chills, Other (fevers) PSYCHOLOGICAL ROS: No: Anxiety, Depression Eyes: No Blurry vision, No Double vision HEENT: No: Heacaches, Sore Throat Hematological and Lymphatic: No: Bleeding Problems, Blood Clots Respiratory: No: Cough, Shortness of breath Cardiovascular: No Chest Pain, No Palpitations Gastrointestinal: Yes Other (see hpi) Genitourinary: No Dysuria, No Retention Musculoskeletal: No Joint Pain, No Muscle Pain Neurological: No Confusion, No Impaired Coord/balance Skin: No Pruritus, No Rash Physical Exam General: Alert, Oriented X3, Cooperative, No acute distress HEENT: Atraumatic, PERRLA Lungs: Clear to auscultation, Normal air movement Heart: Regular rate, Normal S1, Normal S2 Abdomen: Soft, Other (mild TTP upper abdomen, nd) Extremities: No clubbing, No cyanosis Skin: No rashes, No breakdown Neuro: Normal gait, Normal speech Psych/Mental Status: Mental status NL, Mood NL MUSCULOSKELETAL: No deformity, No swelling Vitals VITALS Vital Signs Date Time Temp Pulse Resp B/P (MAP) Pulse Ox O2 Delivery O2 Flow Rate FiO2 04/15/19 07:39 96 Nasal Cannula 2.0 04/15/19 07:11 103 22 104/68 (80) 04/15/19 03:00 97.6 97.6 Labs Labs Laboratory Tests Test 04/14/19 05:40 04/14/19 06:12 Urine Collection Type Unknown Urine Color Yellow Urine Clarity Clear Urine pH 6.0 Urine Specific [place] 1.025 Urine Protein Negative mg/dL (NEG-TRACE) Urine Glucose (UA) Negative mg/dL (NEG) Urine Ketones (Stick) Negative mg/dL (NEG) Urine Blood Negative (NEG) Urine Nitrite Negative (NEG) Urine Bilirubin Negative (NEG) Urine Urobilinogen Dipstick 0.2 mg/dL (0.2 mg/dL) Urine Leukocyte Esterase Negative (NEG) Urine RBC 0 /HPF (0-2) Urine WBC 0 /HPF (0-4) Urine Squamous Epithelial Cells Occ /LPF Urine Bacteria 0 /HPF (0-FEW) Urine Mucus Slight /LPF White Blood Count 7.1 x10^3/uL (4.0-11.0) Red Blood Count 4.24 x10^6/uL (4.30-5.70) Hemoglobin 12.6 g/dL (13.0-17.5) Hematocrit 38.0 % (39.0-53.0) Mean Corpuscular Volume 90 fL (79-100) Mean Corpuscular Hemoglobin 30 pg (25-35) Mean Corpuscular Hemoglobin Concent 33 g/dL (31-37) Red Cell Distribution Width 14.6 % (11.5-14.5) Platelet Count 225 x10^3/uL (140-400) Neutrophils (%) (Auto) 77 % (31-73) Lymphocytes (%) (Auto) 12 % (24-48) Monocytes (%) (Auto) 9 % (0-9) Eosinophils (%) (Auto) 2 % (0-3) Basophils (%) (Auto) 0 % (0-3) Neutrophils # (Auto) 5.4 x10^3/uL (1.8-7.7) Lymphocytes # (Auto) 0.9 x10^3/uL (1.0-4.8) Monocytes # (Auto) 0.7 x10^3/uL (0.0-1.1) Eosinophils # (Auto) 0.1 x10^3/uL (0.0-0.7) Basophils # (Auto) 0.0 x10^3/uL (0.0-0.2) Prothrombin Time 12.5 SEC (11.7-14.0) Prothromb Time International Ratio 1.0 (0.8-1.1) Sodium Level 138 mmol/L (136-145) Potassium Level 4.2 mmol/L (3.5-5.1) Chloride Level 100 mmol/L (98-107) Carbon Dioxide Level 36 mmol/L (21-32) Anion Gap 2 (6-14) Blood Urea Nitrogen 13 mg/dL (8-26) Creatinine 0.8 mg/dL (0.7-1.3) Estimated GFR (Cockcroft-Gault) 91.4 BUN/Creatinine Ratio 16 (6-20) Glucose Level 125 mg/dL (70-99) Lactic Acid Level 0.9 mmol/L (0.4-2.0) Calcium Level 9.0 mg/dL (8.5-10.1) Total Bilirubin 0.8 mg/dL (0.2-1.0) Aspartate Amino Transf (AST/SGOT) 21 U/L (15-37) Alanine Aminotransferase (ALT/SGPT) 16 U/L (16-63) Alkaline Phosphatase 104 U/L (46-116) Troponin I Quantitative < 0.017 ng/mL (0.000-0.055) MC-Aui-H-Type Natriuretic Peptide 381 pg/mL (0-449) Total Protein 6.8 g/dL (6.4-8.2) Albumin 3.0 g/dL (3.4-5.0) Albumin/Globulin Ratio 0.8 (1.0-1.7) Lipase 47 U/L (73-393) Assessment/Plan Assessment/Plan possible SBO--however having stools, recently similar findings will check SBFt to further assess CLAYTON BERGERON MD 04/15/19 1421: CONSULT Assessment/Plan Assessment/Plan Pt seen and examined. Agree with Ms. Dumont's note D/w pt's supportive daughter. Pt reports feeling well abd soft, ND, NTTP SBFT improved will try clears. Thanks for consult! JOVAN DUMONT APRN Apr 15, 2019 10:30 CLAYTON BERGERON MD Apr 15, 2019 14:21
[2019-04-15] MEDS: POTASSIUM CL 20MEQ D5-0.45NACL 1,000 ML IV SCH ×2 (10:38→23:00)
[2019-04-15 11:00] VITALS: BP 107/56
[2019-04-15] MEDS ORDERED: CONTRAST GIVEN. MC PRN (11:00)
[2019-04-15] MEDS ORDERED: IOHEXOL 300 MG/ML 100ML VIAL. PO ONE (11:00)
--- NOTE | 2019-04-15 11:54 | PDOC ---
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 Local progression and second course of radiation was planned to begin later this week. Admitted with 4th episode of SBO over the last year. Previous episodes managed conservatively. No nausea or vomiting. Sleeping now but interested in eating as discussed with nurse. T 97.6 bp 104/68 P02 on 2L 96% CBC ok Chem ok Impression: Progressive st I squamous cell carcinoma of left hilar region following palliative radiation. Retreatment to the left hilar region for increasing shortness of breath is still a consideration. Currently stable at rest. SBO sxs improved. If not ambulatory and not short of breath then I would consider omitting retreatment with radiation. Will continue to follow for now. EVELYN ZURITA MD Apr 15, 2019 11:54
--- NOTE | 2019-04-15 12:27 | NUR ---
SW following for discharge planning. Discussed with RN, pt is from home, was on Hospice with [facility]. Pt having a small bowel series today. SW will continue to follow.
--- NOTE | 2019-04-15 14:10 | RAD ---
EXAM: SMALL BOWEL FOLLOW-THROUGH. HISTORY: Small bowel obstruction. COMPARISON: 04/14/2019. FINDINGS: A nursing program manager image was obtained. Water-soluble contrast material was administered orally and followed in its course through the stomach, small bowel and proximal colon with plain radiographs. Fluoroscopy was not performed. The nursing program manager image demonstrates contrast in the left colon from the prior CT. There is residual small bowel distention in the left upper quadrant, but this appears improved. Left greater than right pleural effusions are partially visualized. There are postoperative changes along the lower abdomen. Cholecystectomy clips are noted. There are moderate degenerative changes of the lumbar spine. Contrast progresses into mildly to moderately distended loops of small bowel in the left abdomen. Some loops are angulated the, particularly adjacent to the anterior abdominal wall repair. The more distal small bowel is decompressed. A clear transition point is not identified. Transit time was 60 minutes (normal <2 hours.) IMPRESSION: 1. Small bowel distention has improved but not completely resolved. These finds are consistent with a residual mild component of partial small bowel obstruction, likely associated with adhesions along the anterior abdominal wall repair on comparison with CT. Electronically signed by: Thiago Wills MD (04/15/2019 2:07 PM) [facility]
[2019-04-15 15:00] VITALS: BP 126/60
[2019-04-15 19:00] VITALS: BP 115/61
[2019-04-15 23:00] VITALS: BP 121/61
[2019-04-16 03:00] VITALS: BP 112/62
[2019-04-16 07:00] VITALS: BP 138/63
[2019-04-16] MEDS: IPRATRPIUM/ALBUTEROL 0.5/2.5MG 3 ML NEBU. NEB SCH ×4 (07:29→21:01)
[2019-04-16] MEDS: POTASSIUM CL 20MEQ D5-0.45NACL 1,000 ML IV SCH (08:11)
--- NOTE | 2019-04-16 08:24 | PDOC ---
Provider Note Provider Note vss, good output, no temp- feels some stomach pain, has more edema in legs- will dc iv fluids for now, follow on cl- NEEDS TO BE IN HOSPITAL DINO JON MD Apr 16, 2019 08:24
[2019-04-16 11:18] VITALS: BP 133/68
--- NOTE | 2019-04-16 13:09 | PDOC ---
SURGICAL PROGRESS NOTE Subjective Pt without c/o, but poor historian Vital Signs Vital Signs Date Time Temp Pulse Resp B/P (MAP) Pulse Ox O2 Delivery O2 Flow Rate FiO2 04/16/19 11:18 97.6 86 16 133/68 (89) 98 Nasal Cannula 3.0 97.6 I&O Intake and Output 04/16/19 07:00 Intake Total 300 ml Output Total 600 ml Balance -300 ml Intake Oral 300 ml Output Urine Total 600 ml # Voids 3 # Bowel Movements 1 General: Alert, No acute distress Abdomen: Soft, No tenderness Problem List Problems Medical Problems: (1) Lung cancer Status: Acute (2) Small bowel obstruction Status: Acute (3) Squamous cell carcinoma Status: Acute Assessment/Plan SBO, appears improved will cont clears check KUB in AM and then CLAYTON CERVANTES MD Apr 16, 2019 13:09
--- NOTE | 2019-04-16 14:10 | PDOC ---
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 Local progression and second course of radiation was planned to begin later this week. Admitted with 4th episode of SBO over the last year. Previous episodes managed conservatively. Currently he denies abd pain or nausea. Able to sip water with advancement of diet to full liquids planned. Minimal cough. No chest pain. Ambulates well in room CBC ok Chem ok Impression: Progressive st I squamous cell carcinoma of left hilar region following palliative radiation. Retreatment to the left hilar region for increasing shortness of breath is still a consideration. Currently stable at rest. SBO sxs improved. Plan to readdress repeat palliative chest radiation with patient and daughter after discharge. As he is asymptomatic and has had repetitive admissions for partial SBO, I would favor observation without repeat chest radiation. EVELYN ZURITA MD Apr 16, 2019 14:10
--- NOTE | 2019-04-16 14:24 | NUR ---
SW following for discharge planning. Chart reviewed, discussed with RN and Dr. Jeronimo. Pt is current with [facility] (ph: [phone], fax: [phone]). SW voicemail with pt's daughter, Ella ([phone]) requesting a call back. Per Dr. Jeronimo, pt can discharge when he can eat. SW will continue to follow.
[2019-04-16 15:00] VITALS: BP 96/56
[2019-04-16 19:00] VITALS: BP 133/65
[2019-04-16 23:00] VITALS: BP 141/75
[2019-04-17 03:00] VITALS: BP 167/71
[2019-04-17 06:10] VITALS: BP 145/80
[2019-04-17] MEDS: IPRATRPIUM/ALBUTEROL 0.5/2.5MG 3 ML NEBU. NEB SCH ×4 (07:42→19:50)
--- NOTE | 2019-04-17 08:20 | RAD ---
EXAM: ABDOMEN ONE VIEW. HISTORY: Small bowel obstruction. COMPARISON: 04/03/2019. FINDINGS: A frontal view of the abdomen is obtained. There is a small to moderate left pleural effusion with left basilar atelectasis. There are atherosclerotic calcifications of the aorta. Cholecystectomy clips and changes of anterior abdominal wall repair are noted. There are mildly distended small bowel loops in the left upper quadrant and left abdomen. There is gas distally. Atherosclerotic calcifications are noted. There are moderate degenerative changes of the lower lumbar spine. IMPRESSION: 1. Findings suggesting partial small bowel obstruction. 2. Moderate left pleural effusion. Electronically signed by: Thiago Wills MD (04/17/2019 8:17 AM) [facility]
--- NOTE | 2019-04-17 08:38 | PDOC ---
Provider Note Provider Note vss, sleeping, pulse feels irreg but 80-90- could be slow AF- abd flat but kub shows same partial sbo changes- will continue liquids for now as poor operative candidate- no anticoag as risk > benefit DINO JON MD Apr 17, 2019 08:38
--- NOTE | 2019-04-17 10:53 | PDOC ---
SURGICAL PROGRESS NOTE Subjective Pt without c/o, appears comfortable, poor historian Vital Signs Vital Signs Date Time Temp Pulse Resp B/P (MAP) Pulse Ox O2 Delivery O2 Flow Rate FiO2 04/17/19 08:00 Nasal Cannula 2.0 04/17/19 07:42 96 04/17/19 06:10 145/80 (101) 04/17/19 03:00 97.8 105 19 97.8 I&O Intake and Output 04/17/19 07:00 Intake Total 890 ml Balance 890 ml Intake Oral 890 ml # Voids 13 General: Alert, Cooperative, No acute distress Abdomen: Soft, No tenderness, Other (ND) I have reviewed the following KUB with some SB distention Problem List Problems Medical Problems: (1) Lung cancer Status: Acute (2) Small bowel obstruction Status: Acute (3) Squamous cell carcinoma Status: Acute Assessment/Plan SBO cont clears, will add sesame seed oil recheck KUB in AM CLAYTON BERGERON MD Apr 17, 2019 10:53
[2019-04-17 11:00] VITALS: BP 133/81
[2019-04-17 15:00] VITALS: BP 138/81
--- NOTE | 2019-04-17 16:09 | NUR ---
SW following. Discussed with RN, pt on clear liquid diet today. SW confirmed with pt's daughter, Ella, they would like to continue on with [facility] at discharge. SW to fax updates. RN notified.
[2019-04-17 19:00] VITALS: BP 130/80
[2019-04-17 22:47] VITALS: BP 98/53
[2019-04-18 02:34] VITALS: BP 123/71
[2019-04-18 07:00] VITALS: BP 123/69
[2019-04-18] MEDS: IPRATRPIUM/ALBUTEROL 0.5/2.5MG 3 ML NEBU. NEB SCH ×4 (07:13→19:41)
--- NOTE | 2019-04-18 07:56 | PDOC ---
Provider Note Provider Note vss, no temp, ? output- labs same- kub pending- abd flat, pulse irreg 100- sesame seed oil ordered but not yet given per record DINO JON MD Apr 18, 2019 07:56
--- NOTE | 2019-04-18 08:02 | RAD ---
2 views of the abdomen 04/18/2019 INDICATION: Small bowel obstruction COMPARISON STUDY: Abdominal radiograph, yesterday Discussion: The bowel gas pattern is nonspecific and nonobstructive. Gas within small and large bowel loops extending into the rectum is seen. No gross pneumoperitoneum is identified. Left pleural effusion is seen. Surgical clips anchors are seen throughout the abdomen. No acute osseous changes are seen. IMPRESSION: 1.Nonspecific, nonobstructive bowel gas pattern, which may represent improving ileus or partial obstruction 2. Left pleural effusion Electronically signed by: Porter Hong MD (04/18/2019 8:00 AM) [id number]
--- NOTE | 2019-04-18 10:25 | PDOC ---
SURGICAL PROGRESS NOTE Subjective Pt denies complaints Vital Signs Vital Signs Date Time Temp Pulse Resp B/P (MAP) Pulse Ox O2 Delivery O2 Flow Rate FiO2 04/18/19 07:14 93 Nasal Cannula 2.0 04/18/19 07:00 97.8 105 18 123/69 (87) 97.8 I&O Intake and Output 04/18/19 07:00 Intake Total 350 ml Balance 350 ml Intake Oral 350 ml # Voids 3 General: Alert, Cooperative, No acute distress Abdomen: Soft, No tenderness I have reviewed the following KUB improved-no obstruction Problem List Problems Medical Problems: (1) Lung cancer Status: Acute (2) Small bowel obstruction Status: Acute (3) Squamous cell carcinoma Status: Acute Assessment/Plan SBO appears resolved cont sesame seed oil CLAYTON CERVANTES MD Apr 18, 2019 10:25
[2019-04-18 10:42] VITALS: BP 108/56
--- NOTE | 2019-04-18 11:30 | NUR ---
SW following. Discussed with RN, unlikely pt will discharge home today. Plan is home with [facility] when released.
[2019-04-18 15:00] VITALS: BP 115/64
[2019-04-18 19:00] VITALS: BP 101/53
[2019-04-18 22:39] VITALS: BP 96/51
[2019-04-19 03:14] VITALS: BP 100/54
[2019-04-19 07:59] VITALS: BP 110/41
[2019-04-19] MEDS: IPRATRPIUM/ALBUTEROL 0.5/2.5MG 3 ML NEBU. NEB SCH ×4 (08:34→19:12)
--- NOTE | 2019-04-19 09:09 | PDOC ---
JOVAN DUMONT APRN 04/19/19 0909: SURGICAL PROGRESS NOTE Subjective tolerating clears no n/v + stool yesterday Vital Signs Vital Signs Date Time Temp Pulse Resp B/P (MAP) Pulse Ox O2 Delivery O2 Flow Rate FiO2 04/19/19 08:36 96 Nasal Cannula 2.0 04/19/19 07:59 97.6 87 20 110/41 (64) 97.6 I&O Intake and Output 04/19/19 06:59 Intake Total 1200 ml Balance 1200 ml Intake Oral 1200 ml # Voids 4 # Bowel Movements 1 General: Alert, Cooperative Abdomen: Soft, No tenderness Problem List Problems Medical Problems: (1) Lung cancer Status: Acute (2) Small bowel obstruction Status: Acute (3) Squamous cell carcinoma Status: Acute Assessment/Plan improved advance diet SHAWN JORDAN MD 04/19/19 1831: SURGICAL PROGRESS NOTE Assessment/Plan Patient seen and examined by me. Much more comfortable today no nausea vomiting minimal pain has had some bowel movement. Will advance diet as tolerated. Agree with Ezio assessment and plan JOVAN DUMONT APRN Apr 19, 2019 09:09 SHAWN JORDAN MD Apr 19, 2019 18:31
--- NOTE | 2019-04-19 09:42 | PDOC ---
Provider Note Provider Note sleeping, vss, pulse irreg- [place] fl ok , will try soft now if surg ok- has to eat to go home DINO JON MD Apr 19, 2019 09:42
[2019-04-19 11:00] VITALS: BP 94/48
[2019-04-19 15:00] VITALS: BP 92/55
[2019-04-19 19:00] VITALS: BP 115/59
[2019-04-19 23:00] VITALS: BP 92/57
[2019-04-20 03:27] VITALS: BP 92/53
[2019-04-20] MEDS: IPRATRPIUM/ALBUTEROL 0.5/2.5MG 3 ML NEBU. NEB SCH ×2 (05:30→11:49)
[2019-04-20 07:00] VITALS: BP 106/65
--- NOTE | 2019-04-20 08:41 | PDOC ---
JOVAN DUMONT APRN 04/20/19 0841: SURGICAL PROGRESS NOTE Subjective tolerating diet stools noted no pain Vital Signs Vital Signs Date Time Temp Pulse Resp B/P (MAP) Pulse Ox O2 Delivery O2 Flow Rate FiO2 04/20/19 07:00 97.7 101 18 106/65 (79) 93 Nasal Cannula 2.0 97.7 I&O Intake and Output 04/20/19 07:00 Intake Total 240 ml Output Total 200 ml Balance 40 ml Intake Oral 240 ml Output Urine Total 200 ml # Voids 2 # Bowel Movements 2 General: Alert, Cooperative Abdomen: Soft, No tenderness Problem List Problems Medical Problems: (1) Lung cancer Status: Acute (2) Small bowel obstruction Status: Acute (3) Squamous cell carcinoma Status: Acute Assessment/Plan diet as tolerated dc per primary SHAWN JORDAN MD 04/20/19 1231: SURGICAL PROGRESS NOTE Assessment/Plan Agree with Ezio assessment and plan JOVAN DUMONT APRN Apr 20, 2019 08:41 SHAWN JORDAN MD Apr 20, 2019 12:31
[2019-04-20] MEDS ORDERED: FUROSEMIDE 40 MG/4 ML VIAL. IVP ONE (09:45)
--- NOTE | 2019-04-20 09:48 | SNU/HH DC ---
DISCHARGE ORDERS DISCHARGE INFORMATION: FINAL DIAGNOSIS Problems Medical Problems: (1) Lung cancer Status: Acute (2) Small bowel obstruction Status: Acute (3) Squamous cell carcinoma Status: Acute CONDITION ON DISCHARGE: Guarded CODE STATUS: Code Status: DNR/DNI HOSPICE: HOSPICE: Yes HOSPICE EVAL & TREAT: Yes POST DISCHARGE ORDERS: ACTIVITY ORDERS: Activity as tolerated WEIGHT BEARING STATUS: As tolerated DIET AFTER DISCHARGE: Regular CHECKS AFTER DISCHARGE: CHECKS AFTER DISCHARGE: Check blood press - daily, Check your Temp as needed TREATMENT/EQUIPMENT ORDERS: ADAPTIVE EQUIPMENT NEEDED: None Physical Therapy For: Evalulation/Treatment Occupational Therapy For: Evaluation/Treatment Speech Language Pathology For: Evaluation/Treatment DISCHARGE MEDICATIONS: Home Meds Reported Medications Guaifenesin (MUCINEX) 600 Mg Tablet.er, 2 TAB PO BID for cough for 10 Days, #40 TAB 0 Refills 04/02/19 Furosemide (LASIX) 20 Mg Tablet, 10 MG PO 1/2tab po daily for diuretic 09/16/18 Albuterol Sulfate (PROAIR HFA INHALER) 8.5 Gm Hfa.aer.ad, 1 PUFF INH PRN Q6HRS PRN for SHORTNESS OF BREATH 06/27/18 Potassium Chloride (POTASSIUM CHLORIDE) 20 Meq Tablet.er, 20 MEQ PO QODAY for supplement 06/07/18 Diltiazem Hcl (DILTIAZEM 24HR CD) 120 Mg Cap.er.24h, 1 CAP PO DAILY for HTN 06/07/18 Ipratropium/Albuterol Sulfate (DUONEB 0.5-3(2.5) MG/3 ML) 3 Ml Ampul.neb, 3 ML NEB PRN Q6HRS PRN for SHORTNESS OF BREATH, EACH 11/26/17 Fluticasone/Salmeterol (ADVAIR 500-50 DISKUS) 1 Each Disk.w.dev, 1 PUFF IH BID for shortness of breath 07/04/17 DINO JON MD Apr 20, 2019 09:48
--- NOTE | 2019-04-20 09:50 | PDOC ---
Provider Note Provider Note [id number] DINO JON MD Apr 20, 2019 09:50
--- NOTE | 2019-04-20 10:08 | DS ---
DATE OF DISCHARGE: 04/20/2019 HOSPITAL SUMMARY: This is an 89-year-old white male with end-stage lung cancer, status post radiation therapy, who has had recurrent small bowel obstructions and came in with a similar presentation and CT evidence of small-bowel obstruction. Small bowel x-ray showed small bowel distention improved, but not resolved and a KUB showed some improvement in his obstructive pattern of the left pleural effusion was present as well. CBC and chemistry profile were unremarkable as well as lactic acid. He had IV fluids and some Lasix and then slow transition to liquids and then full and regular diet and is comfortable to be followed as an outpatient with a regular diet at this time. FINAL DIAGNOSES: 1. Recurrent small-bowel obstruction. 2. 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 OPERATIONS, PROCEDURES, COMPLICATIONS: None. CONSULTATIONS: Dr. Ruby and Dr. Tsai's group. DISPOSITION: Home meds remain the same. Comfort care measures. He will go home with hospice. He is a DNR. DINO JON MD DR: DAMI/jovanny JOB#: [id number] / [id number]
[2019-04-20 11:00] VITALS: BP 100/50
--- NOTE | 2019-04-20 16:22 | NUR ---
Discharge Note: BERTHA CROWE S [address] [place] [address] Discharge instructions and discharge home medications reviewed with Family Member and a copy given. All questions have been answered and understanding verbalized. The following instructions and handouts were given: SBO, Hospice Discontinued lines and drains: peripheral line Patient discharged to Home w/services withFamily Membervia Wheelchair
== END 2019-04-20 16:24 | disposition hospice, home (50) | DRG 389 ==
LOC: ER 05:32 → 5 SOUTH 08:35
PROVIDERS: ADMIT Family Medicine; ATTEND Family Medicine
DX: K56.600 Partial intestinal obstruction, unspecified as to cause (principal); C34.12 Malignant neoplasm of upper lobe, left bronchus or lung; F03.90 Unspecified dementia, unspecified severity, without behavioral disturbance, psychotic disturbance, mood disturbance, and anxiety; I11.0 Hypertensive heart disease with heart failure; I48.91 Unspecified atrial fibrillation; I50.9 Heart failure, unspecified; K57.90 Diverticulosis of intestine, part unspecified, without perforation or abscess without bleeding; M19.90 Unspecified osteoarthritis, unspecified site; J44.9 Chronic obstructive pulmonary disease, unspecified; Z66 Do not resuscitate; Z82.49 Family history of ischemic heart disease and other diseases of the circulatory system; Z85.118 Personal history of other malignant neoplasm of bronchus and lung; Z92.3 Personal history of irradiation; Z79.899 Other long term (current) drug therapy
CPT/HCPCS: 36415; 74021; 74177; 74250; 80053; 81001; 83605; 83690; 83880; 84484; 85025; 85610; 90471; 90686; 93005; 93971; 94640; 94760; 96361; J2405; J7030; J7620; Q9966; Q9967; 99285-25; G0378

== ENCOUNTER → 2019-05-20 | Outpatient (CLI) | payer MEDICARE, OTHER ==
[~2019-05-20] MED LIST changes: +POTA20TA4 PO; -POTA20TA82 PO
--- NOTE | 2019-05-21 08:31 | RAD ---
Examination: CT CHEST WO CONTRAST History: Squamous cell carcinoma of the left lung Comparison/Correlation: 04/03/2019 CT chest without contrast Findings: Axial images of the chest were obtained without contrast. Sagittal and coronal reformatted images were provided. Marked coronary arterial calcifications are present diffusely. Circumferential wall thickening of the left main bronchus is present. Soft tissue density mass along the posterior margin of the left main bronchus which abuts the aorta is again seen without significant change in size. This mass extends laterally circumferentially about the right upper lobe, middle lobe, and lingular branches. Moderate-sized basilar left pleural effusion with partially loculated appearance is present. Minimal right pleural effusion is present. Interstitial infiltrate at the lateral right midlung region is unchanged. Right lower lung field nodule which may have punctate calcification adjacent to it is unchanged. Emphysematous involvement of the lung vital are noted. Right lower lobe bronchial wall thickening is present and compatible with chronic bronchitis. Cholecystectomy is noted. Partially visualized upper abdomen is unremarkable. Severe T8 vertebral body compression deformity again seen. Impression: Mass about the left main stem bronchus is again seen with bronchial luminal narrowing. No significant change in morphology or size. Left pleural effusion is moderate-sized and minimally increased. Adjacent left basilar atelectasis may be minimally increased. PQRS Compliance Statement: One or more of the following individualized dose reduction techniques were utilized for this examination: 1. Automated exposure control 2. Adjustment of the mA and/or kV according to patient size 3. Use of iterative reconstruction technique Electronically signed by: Yuriy Cortez MD (05/21/2019 8:28 AM) [facility]
== END ==
LOC: CT 15:17
PROVIDERS: ATTEND Radiology Radiation Oncology
DX: C34.92 Malignant neoplasm of unspecified part of left bronchus or lung (principal); J44.9 Chronic obstructive pulmonary disease, unspecified; J90 Pleural effusion, not elsewhere classified; R91.1 Solitary pulmonary nodule; R91.8 Other nonspecific abnormal finding of lung field; I25.10 Atherosclerotic heart disease of native coronary artery without angina pectoris; M43.8X4 Other specified deforming dorsopathies, thoracic region; I11.0 Hypertensive heart disease with heart failure; I50.9 Heart failure, unspecified; I48.91 Unspecified atrial fibrillation; Z87.891 Personal history of nicotine dependence; Z90.49 Acquired absence of other specified parts of digestive tract
CPT/HCPCS: 71250